=== PATIENT | female | born 1935 | race Caucasian/White ===

== ENCOUNTER → 2016-11-24 | Outpatient (CLI) | payer BC ==
[~2016-11-24] MED LIST: ADVIN25/60 INH; ALBU1AER9 INH; ALL300 PO; ASPI81TA57 PO; ATOR-22 PO; LEVO75TA5 PO; LSX20 PO; LUBI8CAP4 PO; MOME6000; MULT-513 PO; NRN100 PO; PANT40TA2 PO; RANI300T2 PO; SNG10 PO; TELM1TAB8 PO; TPRSR/50 PO; TRAM-10 PO
--- NOTE | 2016-11-24 15:08 | MAMMOGRAPHY REPORT ---
BILATERAL DIGITAL SCREENING MAMMOGRAM TOMOSYNTHESIS WITH CAD: 11/24/2016 CLINICAL HISTORY: Asymptomatic. Personal history of breast cancer. TECHNIQUE: Breast tomosynthesis in addition to standard 2D mammography was performed. Current study was also evaluated with a Computer Aided Detection (CAD) system. COMPARISON: Comparison is made to exams dated: 11/23/2015 mammogram, 11/19/2014 mammogram, 10/31/2013 ma mmogram, 10/29/2012 mammogram, 01/12/2011 mammogram, and 01/04/2010 mammogram - [facility] enter. BREAST COMPOSITION: There are scattered areas of fibroglandular density in both breasts. FINDINGS: No suspicious masses, calcifications, or areas of architectural distortion are noted in e ither breast. There has been no significant interval change compared to prior exams. Again noted ar e postsurgical changes in the right medial breast far posteriorly from prior lumpectomy, with densit y at the lumpectomy bed not significantly changed compared to the prior exam. Note that the lumpect yamil bed is only partially visualized due to the far posterior location. IMPRESSION: ACR BI-RADS CATEGORY 2: BENIGN There is no mammographic evidence of malignancy. A 1 year screening mammogram is recommended. The p atient will receive written notification of the results. Approximately 10% of breast cancers are not detected with mammography. A negative mammographic repor t should not delay biopsy if a clinically suggestive mass is present. Cayla Lima M.D. ah/:11/24/2016 13:40:22 Room Service Manager: Kesha DURANT([place])([place]), [facility] letter sent: Normal 1/2 BI-RADS Code: ACR BI-RADS Category 2: Benign
== END | disposition home or self-care (01) ==
LOC: C.MAMM 10:19
PROVIDERS: ATTEND Internal Medicine Hematology
DX: Z12.31 Encounter for screening mammogram for malignant neoplasm of breast (principal); Z85.3 Personal history of malignant neoplasm of breast; Z08 Encounter for follow-up examination after completed treatment for malignant neoplasm

== ENCOUNTER → 2017-11-22 | Outpatient (CLI) | payer BC ==
[~2017-11-22] MED LIST changes: +ADVIN50/60 INH; +ASPI-495 PO; +BENZ100C7 PO; +CETI-54 PO; +LEVO50TA6 PO; +LINA1CAP PO; +MCR40 PO; +METO-217 PO; +PROAIR 90 MCG INH; +RANI300T PO
[2017-11-22 12:53] LABS: BASO % 0.5 %; BASO ABS # 0.03 K/uL (0-0.2); EOS ABS # 0.17 K/uL (0-0.5); HEMATOCRIT 39.1 % (37-47); HEMOGLOBIN 13.2 g/dL (12.0-16.0); IG# 0.02 K/uL (0.00-0.02); LYMPH % 25.5 %; LYMPH ABS # 1.47 K/uL (1.2-3.4); MEAN CORPUSCULAR HEMOGLOBIN 31.7 pg (25-34); MEAN CORPUSCULAR HGB CONC 33.8 g/dl (32-36); MEAN PLATELET VOLUME 9.5 fL (7.4-10.4); MONO % 13.7 %; MONO ABS # 0.79 K/uL (0.11-0.59); NEUT ABS # 3.28 K/uL (1.4-6.5); PLATELET COUNT 267 K/uL (130-400); RED CELL DISTRIBUTION WIDTH SD 55.3 fL (36.4-46.3); WHITE BLOOD COUNT 5.76 K/uL (4.8-10.8)
[2017-11-22 13:11] LABS: BLOOD UREA NITROGEN 19 mg/dl (7-18); CREATININE 1.12 mg/dl (0.60-1.20)
== END | disposition home or self-care (01) ==
LOC: C.LABBFT 10:20
PROVIDERS: ATTEND Internal Medicine Pulmonary Disease
DX: J45.20 Mild intermittent asthma, uncomplicated (principal); J31.0 Chronic rhinitis

== ENCOUNTER 2017-11-27 15:49 | Inpatient (IN) | payer BC, OTHER ==
[~2017-11-27] VITALS: Ht 154.9 cm; Wt 80.6 kg
[~2017-11-27 15:49] MED LIST changes: -ADVIN50/60 INH; -ALL300 PO; -ASPI-495 PO; -ATOR-22 PO; -BENZ100C7 PO; -CETI-54 PO; -LEVO50TA6 PO; -LINA1CAP PO; -MCR40 PO; -METO-217 PO; -PANT40TA2 PO; -PROAIR 90 MCG INH; -RANI300T PO
[2017-11-27] MEDS ORDERED: SODIUM CHLORIDE 0.9% 1000ML 1,000 ML IV STA (18:51)
[2017-11-27] MEDS ORDERED: FENTANYL CITRATE INJ 50 MCG/1 ML 2 ML VIAL IV STA ×2 (18:51→20:47)
[2017-11-27] MEDS ORDERED: ONDANSETRON INJ 2 MG/ML 2 ML VIAL IV STA (18:51)
--- NOTE | 2017-11-27 18:56 | EMERGENCY ROOM VISIT NOTE ---
History Report prepared by Laura: Roberto Carlos Kumar Under the Supervision of: Dr. Mack Garcia M.D. First contact with patient: 18:45 Chief Complaint: ABDOMINAL PAIN Stated Complaint: URQ PAIN Nursing Triage Summary: Pt reports upper right sided abdominal pain this morning. Pt went to PCP and had blood work done and they wanted to do an Gallbladder US but were unable to get appointment so referred her here. Denies N/V. Reports diarrhea all morning. History of Present Illness The patient is an 82 year old female who presents to the Emergency Room with complaints of worsening right upper quadrant abdominal pain that began today rated as 8/10. Associated with nausea dn diarrhea. No vomiting, fevers, chills , syncope, cp, sob, nor other symptoms. No medications prior to arrival. Movement makes worse, staying still makes better. No history of abdominal surgeries. No treatments prior to arrival. Denies bloody stools but hasn't noticed stool color. Source of History: patient Onset: today Position: abdomen (RUQ) Symptom Intensity: 8/10 Timing: worsening Modifying Factors (Worsening): breathing Associated Symptoms: + nausea, + diarrhea, No chest pain, No vomiting, No urinary symptoms, No rash Review of Systems See HPI for pertinent positives & negatives. A total of 10 systems reviewed and were otherwise negative. Past Medical & Surgical Medical Problems: (1) Acute pancreatitis (2) Asthma (3) Cancer of central portion of right female breast (4) Coronary arteriosclerosis (5) Hyperlipidemia (6) Hypertension Nos (7) Hyponatremia (8) Hypothyroidism (9) Osteoporosis Nos Family History FH: cancer Heart disease Hypertension Social History Smoking Status: Never Smoker Alcohol Use: none Drug Use: none Marital Status: Housing Status: lives with significant other Occupation Status: retired Current/Historical Medications Scheduled Allopurinol (Allopurinol), 150 MG PO DAILY Aspirin (Aspirin Adult Low Strengt), 1 TAB PO DAILY Atorvastatin (Lipitor), 20 MG PO HS Cetirizine HCl (Ra Allergy Relief), 10 MG PO DAILY Fluticasone Prop/Salmeterol (Advair Diskus 500/50 60 Dose), 1 PUFF INH BID Furosemide (Furosemide), 20 MG PO WK Gabapentin (Gabapentin), 100 MG PO TID Levothyroxine Sodium (Levothyroxine Sodium), 50 MCG PO DAILY Linaclotide (Linzess), 145 MCG PO DAILY Metoprolol Succinate (Toprol Xl), 50 MG PO DAILY Montelukast Sod (Montelukast Sodium), 10 MG PO HS Multivitamins/Minerals (Mvi With Minerals), 1 TAB PO DAILY Pantoprazole (Pantoprazole Sodium), 40 MG PO DAILY Ranitidine Hcl (Zantac), 300 MG PO HS Telmisartan (Telmisartan), 40 MG PO DAILY Scheduled PRN Benzonatate (Benzonatate), 100 MG PO TID PRN for Cough Tramadol (Ultram), 1 TAB PO TID PRN for Pain [Proair Hfa 90 Mcg], 2 PUFF INH Q4 PRN for SOB/Wheezing Allergies Coded Allergies: Milk (Verified Allergy, Intermediate, UNKNOWN, 03/17/14) Sulfa Drugs (Verified Allergy, Intermediate, RASH FROM HEAD TO TOE, ) Latex (Verified Allergy, Mild, RASH, 03/17/14) Oxycodone (Verified Allergy, Mild, ITCHING, 03/17/14) Shellfish (Verified Allergy, Mild, `, 03/17/14) Soap (Verified Allergy, Mild, DETERGENTS-RASH, 03/17/14) Adhesives (Verified Allergy, Unknown, LOCAL SKIN IRRITATION, 03/17/14) CI Pigment Blue 63 (Verified Allergy, Unknown, RESTLESS LEGS, 03/17/14) Diphenhydramine (Verified Allergy, Unknown, _, 06/09/12) Hydrochlorothiazide (Verified Allergy, Unknown, RENAL COMPLICATIONS, HIVES ?, 03/17/14) Ibuprofen (Verified Allergy, Unknown, RESTLESS LEGS,RASH?, 03/17/14) Indigotindisulfonate (Verified Allergy, Unknown, RESTLESS LEGS,RASH, ) Ciprofloxacin (Verified Adverse Reaction, Intermediate, SEVERE NAUSEA AND VOMITING, 03/17/14) Nitrofurantoin (Verified Adverse Reaction, Intermediate, SEVERE NAUSEA AND VOMITING, 03/17/14) Lactose Intolerance (Verified Adverse Reaction, Unknown, GI SYMPTOMS, 03/17) Physical Exam Vital Signs Date Time Temp Pulse Resp B/P (MAP) Pulse Ox O2 Delivery O2 Flow Rate FiO2 11/27/17 21:40 80 18 175/86 96 Room Air 11/27/17 21:03 76 20 170/101 97 Room Air 11/27/17 20:10 78 20 171/93 98 Room Air 11/27/17 19:23 80 18 177/104 98 Room Air 11/27/17 15:53 36.5 85 18 157/88 95 Room Air Physical Exam GENERAL: Patient is uncomfortable appearing and in moderate discomfort. EYES: No scleral icterus, unremarkable pupils. ENT: Mucous membranes moist, no nasal congestion. NECK: No masses appreciated, no meningismus, trachea is midline. RESPIRATORY: No dyspnea. Clear to auscultation and equal bilaterally. No wheeze , no rhonchi. CARDIOVASCULAR: Regular rate and rhythm. No murmurs, rubs, gallops appreciated. GASTROINTESTINAL: RUQ tenderness to palpation. Abdomen soft, no peritonitis. Bowel sounds positive. No masses appreciated. BACK: No midline tenderness, no CVA tenderness EXTREMITIES: Normal motion all extremities, no cyanosis, no edema. NEUROLOGIC: Alert and oriented, no acute motor or sensory deficits, no focal weakness, cranial nerves grossly intact. SKIN: No rash, no jaundice, no diaphoresis. Medical Decision & Procedures ER Provider Diagnostic Interpretation: Radiology results and stated below per my review and radiologist interpretation: CT SCAN OF THE ABDOMEN AND PELVIS WITH IV CONTRAST CLINICAL HISTORY: Epigastric abdominal pain. COMPARISON STUDY: Abdominal CT dated 11/27/2017. TECHNIQUE: Following the IV administration of 115 cc of Optiray 320, CT scan of the abdomen and pelvis is performed from the lung bases to the proximal femora. Images are reviewed in the axial, sagittal, and coronal planes. IV contrast was administered without complication. A dose lowering technique was utilized adhering to the principles of ALARA. CT DOSE: 899.99 mGycm FINDINGS: Lung bases: The heart is enlarged and without pericardial effusion. There are coronary artery calcifications. A 3 mm nodule at the left lung base on image #13 is unchanged dating back to 2009 and of doubtful significance. There are scattered calcified granulomas. The lung bases are otherwise clear noting dependent atelectasis. There is a small hiatal hernia. Liver: The contrast-enhanced liver is normal in size, contour, and attenuation. There is mild intrahepatic biliary ductal dilatation. The hepatic veins and portal veins are patent. Gallbladder: There are small calcified gallstones identified. The gallbladder is distended. The gallbladder wall is thickened and hyperemic and there is pericholecystic inflammatory stranding and fluid. The appearance is consistent with acute cholecystitis. The common bile duct is dilated measuring up to 11 mm in diameter. Spleen: Normal in size and attenuation. Pancreas: Moderately atrophic and grossly unremarkable. Adrenal glands: Unremarkable. Kidneys: The contrast enhanced kidneys are atrophic and without hydronephrosis. The kidneys enhance symmetrically. 1.7 cm cyst is noted in the right lower pole. Abdominal vasculature: The abdominal aorta is normal in course and caliber noting moderate atherosclerotic calcification. Bowel: There is moderate sigmoid diverticulosis without CT evidence of acute diverticulitis. No bowel obstruction is seen. The appendix is well-visualized and normal. Peritoneum: There is no intraperitoneal free air or abdominal ascites. There is a small fat-containing umbilical hernia. Lymphadenopathy: None. Pelvic viscera: The bladder is decompressed but appears thick-walled and hyperemic. Mild pericystic inflammation is identified. The uterus and adnexa are normal as visualized. Skeletal structures: The skeletal structures are osteopenic. Lumbar sacral spondylosis is observed. There are postoperative changes from L4-L5 spinal fusion. No lytic or blastic lesions are seen. IMPRESSION: 1. Cholelithiasis with evidence of severe acute cholecystitis. Surgical consultation is advised. 2. There is mild intra and extrahepatic biliary ductal dilatation. 3. Although the bladder is decompressed, the wall is thickened and hyperemic. Pericystic inflammation is identified. Correlate clinically and with urinalysis for evidence of cystitis. 4. Moderate sigmoid diverticulosis without CT evidence of acute diverticulitis. 5. Cardiomegaly and small hiatal hernia. 6. Additional findings as above. Electronically signed by: Robert Griffith M.D. 11/27/2017 8:36 PM Dictated Date/Time: 11/27/2017 8:29 PM Laboratory Results 11/27/17 19:12 Red Blood Count 4.40, Mean Corpuscular Volume 93.9, Mean Corpuscular Hemoglobin 32.5, Mean Corpuscular Hemoglobin Concent 34.6, Mean Platelet Volume 10.0, Neutrophils (%) (Auto) 75.9, Lymphocytes (%) (Auto) 14.2, Monocytes (%) (Auto) 8.9, Eosinophils (%) (Auto) 0.2, Basophils (%) (Auto) 0.3, Neutrophils # (Auto) 11.92, Lymphocytes # (Auto) 2.22, Monocytes # (Auto) 1.39, Eosinophils # (Auto) 0.03, Basophils # (Auto) 0.04 11/27/17 19:12 Test 11/27/17 00:00 11/27/17 19:12 Urine Color DK YELLOW Urine Appearance CLEAR (CLEAR) Urine pH 5.0 (4.5-7.5) Urine Specific R[place]child 1.022 (1.000-1.030) Urine Protein NEG (NEG) Urine Glucose (UA) NEG (NEG) Urine Ketones NEG (NEG) Urine Occult Blood 1+ (NEG) Urine Nitrite POS (NEG) Urine Bilirubin NEG (NEG) Urine Urobilinogen NEG (NEG) Urine Leukocyte Esterase SMALL (NEG) Urine WBC (Auto) 10-30 /hpf (0-5) Urine RBC (Auto) 0-4 /hpf (0-4) Urine Hyaline Casts (Auto) 0 /lpf (0-5) Urine Epithelial Cells (Auto) 20-30 /lpf (0-5) Urine Bacteria (Auto) 4+ (NEG) Urine Crystals CALCIUM OXALATE (NONE White Blood Count 15.68 K/uL (4.8-10.8) Red Blood Count 4.40 M/uL (4.2-5.4) Hemoglobin 14.3 g/dL (12.0-16.0) Hematocrit 41.3 % (37-47) Mean Corpuscular Volume 93.9 fL (80-100) Mean Corpuscular Hemoglobin 32.5 pg (25-34) Mean Corpuscular Hemoglobin Concent 34.6 g/dl (32-36) Platelet Count 296 K/uL (130-400) Mean Platelet Volume 10.0 fL (7.4-10.4) Neutrophils (%) (Auto) 75.9 % Lymphocytes (%) (Auto) 14.2 % Monocytes (%) (Auto) 8.9 % Eosinophils (%) (Auto) 0.2 % Basophils (%) (Auto) 0.3 % Neutrophils # (Auto) 11.92 K/uL (1.4-6.5) Lymphocytes # (Auto) 2.22 K/uL (1.2-3.4) Monocytes # (Auto) 1.39 K/uL (0.11-0.59) Eosinophils # (Auto) 0.03 K/uL (0-0.5) Basophils # (Auto) 0.04 K/uL (0-0.2) RDW Standard Deviation 54.7 fL (36.4-46.3) RDW Coefficient of Variation 15.9 % (11.5-14.5) Immature Granulocyte % (Auto) 0.5 % Immature Granulocyte # (Auto) 0.08 K/uL (0.00-0.02) Prothrombin Time 10.2 SECONDS (9.0-12.0) Prothromb Time International Ratio 1.0 (0.9-1.1) Anion Gap 8.0 mmol/L (3-11) Est Creatinine Clear Calc Drug Dose 39.6 ml/min Estimated GFR () 59.3 Estimated GFR (Non- 51.2 BUN/Creatinine Ratio 15.4 (10-20) Calcium Level 9.1 mg/dl (8.5-10.1) Total Bilirubin 0.9 mg/dl (0.2-1) Direct Bilirubin 0.4 mg/dl (0-0.2) Aspartate Amino Transf (AST/SGOT) 178 U/L (15-37) Alanine Aminotransferase (ALT/SGPT) 108 U/L (12-78) Alkaline Phosphatase 142 U/L (45-117) Total Protein 7.7 gm/dl (6.4-8.2) Albumin 3.7 gm/dl (3.4-5.0) Lipase 85859 U/L (73-393) Laboratory results as reviewed by me. Medications Administered Medications (Trade) Dose Ordered Sig/Yessica Route Start Time Stop Time Status Last Admin Dose Admin Ondansetron HCl (Zofran Inj) 4 mg NOW STAT IV 11/27/17 18:51 11/27/17 18:53 DC 11/27/17 19:19 4 MG Fentanyl Citrate (Fentanyl Inj) 25 mcg NOW STAT IV 11/27/17 18:51 11/27/17 18:53 DC 11/27/17 19:19 25 MCG Sodium Chloride 1,000 ml @ 999 mls/hr Q1H1M STAT IV 11/27/17 18:51 11/27/17 19:51 DC 11/27/17 19:18 999 MLS/HR Cefoxitin Sodium (Mefoxin 2000mg/ 60 ml D5W) 2,000 mg NOW STAT IV 11/27/17 20:42 11/27/17 20:43 DC 11/27/17 21:03 2,000 MG Fentanyl Citrate (Fentanyl Inj) 25 mcg NOW STAT IV 11/27/17 20:47 11/27/17 20:48 DC 11/27/17 20:56 25 MCG ED Course 1844: The patient was evaluated in room C5. A complete history and physical exam was performed. 1899: I checked on the patient. We discussed doing a CT scan rather than an US and she is agreeable. At [facility], she had a creatinine of 1.0 and a white count of 12.4 as an outpatient. 2044: I checked on the patient and she is agreeable to admission. She is requesting more pain medication. I discussed with surgery earlier, who requested hospitalist admission. 2049: Discussed the patient's case with Dr. Arango. The patient will be evaluated for further treatment and disposition. 2099: Upon reevaluation, the patient is resting. Discussed results and treatment plan with the patient. She verbalized understanding and agreement with the treatment plan. The patient will be evaluated for further management. Medical Decision Differential: Cholecystitis, Gallbladder disfunction, Hepatic Disfunction, Gastritis/PUD, Renal Colic, Pancreatitis, ACS, Aortic Pathology, amongst other pathologies entertained. 82 yr old female arrives for evaluation of RUQ abdominal pain radiating to her back and epigastrium. No fevers though this is rapid onset. TTP over RUQ but with complaints and elevated lipase felt that CT indicated above US. CT reveals acute Cholecystitis. Increased LFTs and WBC consistent with infection. Lipase elevated thus would suspect gallstone pancreatitis. With this I initiated IV abx, reviewed with Gen Surg who advised Med admit and discussed with Dr Arango. Patient without septic shock. She is kept comfortable with small amounts fentanyl periodically. She was stable throughout ED stay. Medication Reconcilliation Current Medication List: was personally reviewed by me Blood Pressure Screening Patient's blood pressure: Elevated blood pressure Blood pressure disposition: Elevated BP felt to be situational Consults Time Called: 2044 Consulting Physician: Dr. Aranog Returned Call: 2049 Discussed the patient's case. The patient will be evaluated for further treatment and disposition. Impression Primary Impression: Acute cholecystitis Additional Impression: Gallstone pancreatitis Scribe Attestation The scribe's documentation has been prepared under my direction and personally reviewed by me in its entirety. I confirm that the note above accurately reflects all work, treatment, procedures, and medical decision making performed by me. Departure Information Dispostion Being Evaluated By Hospitalist Referrals No Doctor, Assigned (PCP) Patient Instructions My [facility] Problem Qualifiers
[2017-11-27] MEDS ORDERED: OPTIRAY 320 IV PRN (19:00)
[2017-11-27] MEDS ORDERED: PROAIR 90 MCG INH (19:32)
[2017-11-27] MEDS ORDERED: MCR40 PO (19:32)
[2017-11-27] MEDS ORDERED: LINA1CAP PO (19:32)
[2017-11-27] MEDS ORDERED: METO-217 PO (19:32)
[2017-11-27] MEDS ORDERED: LEVO50TA6 PO (19:32)
[2017-11-27] MEDS ORDERED: CETI-54 PO (19:32)
[2017-11-27] MEDS ORDERED: RANI300T PO (19:32)
[2017-11-27] MEDS ORDERED: BENZ100C7 PO (19:32)
[2017-11-27] MEDS ORDERED: ADVIN50/60 INH (19:32)
[2017-11-27] MEDS ORDERED: LSX20 PO (19:56)
[2017-11-27] MEDS ORDERED: ASPI-495 PO (19:56)
[2017-11-27 20:09] LABS: BASO % 0.3 %; BASO ABS # 0.04 K/uL (0-0.2); EOS % 0.2 %; EOS ABS # 0.03 K/uL (0-0.5); HEMATOCRIT 41.3 % (37-47); HEMOGLOBIN 14.3 g/dL (12.0-16.0); IG# 0.08 K/uL (0.00-0.02); LYMPH % 14.2 %; LYMPH ABS # 2.22 K/uL (1.2-3.4); MEAN CELL VOLUME 93.9 fL (80-100); MEAN CORPUSCULAR HEMOGLOBIN 32.5 pg (25-34); MEAN CORPUSCULAR HGB CONC 34.6 g/dl (32-36); MONO % 8.9 %; MONO ABS # 1.39 K/uL (0.11-0.59); NEUT % 75.9 %; NEUT ABS # 11.92 K/uL (1.4-6.5); PLATELET COUNT 296 K/uL (130-400); RED CELL DISTRIBUTION WIDTH CV 15.9 % (11.5-14.5); RED CELL DISTRIBUTION WIDTH SD 54.7 fL (36.4-46.3); WHITE BLOOD COUNT 15.68 K/uL (4.8-10.8)
[2017-11-27 20:30] LABS: ALBUMIN 3.7 gm/dl (3.4-5.0); CALCIUM 9.1 mg/dl (8.5-10.1); CREATININE 1.02 mg/dl (0.60-1.20); POTASSIUM 3.8 mmol/L (3.5-5.1)
[2017-11-27] MEDS ORDERED: ATOR-22 PO (20:32)
[2017-11-27] MEDS ORDERED: ALL300 PO (20:32)
[2017-11-27] MEDS ORDERED: PANT40TA2 PO (20:32)
[2017-11-27 20:33] LABS: TOTAL PROTEIN 7.7 gm/dl (6.4-8.2)
--- NOTE | 2017-11-27 20:37 | DIAGNOSTIC IMAGING REPORT ---
CT SCAN OF THE ABDOMEN AND PELVIS WITH IV CONTRAST CLINICAL HISTORY: Epigastric abdominal pain. COMPARISON STUDY: Abdominal CT dated 11/27/2017. TECHNIQUE: Following the IV administration of 115 cc of Optiray 320, CT scan of the abdomen and pelvis is performed from the lung bases to the proximal femora. Images are reviewed in the axial, sagittal, and coronal planes. IV contrast was administered without complication. A dose lowering technique was utilized adhering to the principles of ALARA. CT DOSE: 899.99 mGycm FINDINGS: Lung bases: The heart is enlarged and without pericardial effusion. There are coronary artery calcifications. A 3 mm nodule at the left lung base on image #13 is unchanged dating back to 2009 and of doubtful significance. There are scattered calcified granulomas. The lung bases are otherwise clear noting dependent atelectasis. There is a small hiatal hernia. Liver: The contrast-enhanced liver is normal in size, contour, and attenuation. There is mild intrahepatic biliary ductal dilatation. The hepatic veins and portal veins are patent. Gallbladder: There are small calcified gallstones identified. The gallbladder is distended. The gallbladder wall is thickened and hyperemic and there is pericholecystic inflammatory stranding and fluid. The appearance is consistent with acute cholecystitis. The common bile duct is dilated measuring up to 11 mm in diameter. Spleen: Normal in size and attenuation. Pancreas: Moderately atrophic and grossly unremarkable. Adrenal glands: Unremarkable. Kidneys: The contrast enhanced kidneys are atrophic and without hydronephrosis. The kidneys enhance symmetrically. 1.7 cm cyst is noted in the right lower pole. Abdominal vasculature: The abdominal aorta is normal in course and caliber noting moderate atherosclerotic calcification. Bowel: There is moderate sigmoid diverticulosis without CT evidence of acute diverticulitis. No bowel obstruction is seen. The appendix is well-visualized and normal. Peritoneum: There is no intraperitoneal free air or abdominal ascites. There is a small fat-containing umbilical hernia. Lymphadenopathy: None. Pelvic viscera: The bladder is decompressed but appears thick-walled and hyperemic. Mild pericystic inflammation is identified. The uterus and adnexa are normal as visualized. Skeletal structures: The skeletal structures are osteopenic. Lumbar sacral spondylosis is observed. There are postoperative changes from L4-L5 spinal fusion. No lytic or blastic lesions are seen. IMPRESSION: 1. Cholelithiasis with evidence of severe acute cholecystitis. Surgical consultation is advised. 2. There is mild intra and extrahepatic biliary ductal dilatation. 3. Although the bladder is decompressed, the wall is thickened and hyperemic. Pericystic inflammation is identified. Correlate clinically and with urinalysis for evidence of cystitis. 4. Moderate sigmoid diverticulosis without CT evidence of acute diverticulitis. 5. Cardiomegaly and small hiatal hernia. 6. Additional findings as above. Electronically signed by: Robert Griffith M.D. 11/27/2017 8:36 PM Dictated Date/Time: 11/27/2017 8:29 PM
[2017-11-27] MEDS ORDERED: CEFOXITIN 2000MG/60 ML D5W IV STA (20:42)
--- NOTE | 2017-11-27 21:36 | DIAGNOSTIC IMAGING REPORT ---
SINGLE VIEW CHEST CLINICAL HISTORY: Dyspnea. FINDINGS: An AP, portable, upright chest radiograph is compared to study dated 03/11/2016 and correlated with chest CT dated 05/18/2009. The examination is degraded by portable technique and patient rotation. The heart is enlarged and there is atherosclerotic calcification of the thoracic aorta. The pulmonary vasculature is noncongested. There is chronic interstitial thickening and elevation of the right hemidiaphragm. Bibasilar airspace opacities are noted. No large pleural effusion or pneumothorax is seen. The skeletal structures are osteopenic. The bony thorax is grossly intact. IMPRESSION: 1. Cardiomegaly without radiographic evidence of congestive failure. 2. Bibasilar airspace opacities likely represent atelectasis. Correlate clinically for evidence of superimposed pneumonia. Electronically signed by: Robert Griffith M.D. 11/27/2017 9:35 PM Dictated Date/Time: 11/27/2017 9:32 PM
[2017-11-27 22:33] VITALS: BP 176/82; PULSE 65; TEMP 36.9; O2SAT 96; Ht 154.9 cm; Wt 80.6 kg
--- NOTE | 2017-11-27 22:35 | HISTORY & PHYSICAL EXAMINATION ---
DATE OF ADMISSION: 11/27/2017 PRIMARY CARE PHYSICIAN: Dr. Brown. CHIEF COMPLAINT: Abdominal pain, diarrhea since last night. HISTORY OF PRESENT COMPLAINT: She is an 82-year-old female with significant past medical history including CAD, diastolic heart failure, chronic kidney disease stage III, history of essential tremor, osteoporosis, chronic left bundle branch block, hypothyroidism, and hyperlipidemia, apparently has been complaining of abdominal pain mostly in the upper abdomen and more in the right upper quadrant since last evening. She has had some abdominal discomfort for more than a week. She complained to have sweating last night, but no fever documented. She feels nauseous, but no vomiting. She has had diarrhea about 12 times today. With these symptoms, she was brought into the Emergency Room and she was noted to have CT findings of acute cholecystitis with increased white count and increased LFTs and also her lipase is elevated with dilatation of the bile duct. From that point, surgery was consulted and they requested medicine service to take the admission. She denies to have any chest pain, any palpitation on usual activities. 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 PAST MEDICAL HISTORY: Significant for senile osteoporosis, chronic left bundle branch block, hypothyroidism, osteoarthritis, hyperlipidemia, ARPIT, essential tremor, hypertension, diastolic heart failure, chronic kidney disease stage III. She has asthma as well. PAST SURGICAL HISTORY: Significant for lumbar disc displacement surgery; cardiac catheterization in 2010, 70% LAD and circumflex, medical therapy continued; mastectomy for a benign lesion; and tonsillectomy and adenoid surgery as a child. FAMILY HISTORY: Mother did have Parkinson disease. Father had asthma. SOCIAL HISTORY: She is . She lives with her . She has 4 children. She does not smoke and does not drink. ALLERGIES: SHE IS ALLERGIC TO MILK, SULFA, LATEX, OXYCODONE, SHELLFISH, SOAP, ADHESIVE, DIPHENHYDRAMINE, HYDROCHLOROTHIAZIDE, IBUPROFEN, INDIGOTINDISULFONATE, CIPROFLOXACIN, NITROFURANTOIN, AND LACTOSE INTOLERANCE. MEDICATIONS: As an outpatient, she has been taking allopurinol 150 mg daily, aspirin 81 mg daily, atorvastatin 20 mg daily, benzoate 100 mg daily, cetirizine 10 mg daily, Advair Diskus 1 puff twice daily, furosemide 20 mg as directed, gabapentin 100 mg daily, levothyroxine 50 mcg daily, Toprol-XL 50 mg daily, montelukast 10 mg daily, multivitamin 1 tablet daily, Protonix 40 mg daily, telmisartan 40 mg daily, tramadol 50 mg daily, Linzess 145 mcg daily, Zantac 300 mg daily, and ProAir 2 puffs q. 4 hourly p.r.n. REVIEW OF SYSTEMS: CENTRAL NERVOUS SYSTEM: No headache, no blurred vision, no numbness or tingling in the extremities. RESPIRATORY: No cough, shortness of breath but did have some sweating last night, but no fever. CARDIOVASCULAR: No chest pain, palpitation, no shortness of breath, no leg swelling. GASTROINTESTINAL: Did have abdominal pain, generalized, but mostly right upper quadrant goes to back associated with nausea. GENITOURINARY: Did have diarrhea this morning, but no problem with urine. MUSCULOSKELETAL: No acute arthritis in any joints. CONSTITUTIONAL: She is generally weak and lethargic. PHYSICAL EXAMINATION: GENERAL: On examination in the Emergency Room, she was not having any acute distress. VITAL SIGNS: Temperature 36.5, pulse is 85, blood pressure 170/101, saturation 97% on room air. HEENT: Unremarkable. NECK: Supple, no JVD, no bruit. CHEST: Clear to auscultate bilaterally. HEART: S1, S2 regular. ABDOMEN: Mildly distended, soft, tender in the right upper quadrant with guarding and rigidity. Alcantara sign positive. Bowel sounds present. EXTREMITIES: Negative for any edema. MUSCULOSKELETAL SYSTEM: Did not show any acute arthritis. CENTRAL NERVOUS SYSTEM: She was alert, awake, oriented x3. LABORATORY DATA: Noted today white count was 15.68, H and H 14.3/41.3, platelet 296, polys of 11.92. Sodium 137, potassium 3.8, chloride 104, carbon dioxide 25, BUN 16, creatinine 1.02. Random glucose 107, total bilirubin 0.9, direct 0.4, AST 178, ALT 108, alkaline phosphatase 142, lipase was 51,602. PT/INR pending. UA examination did show urine crystals of calcium oxalate, urine bacteria 4+, epithelial cells 20-30, white cells 10-30, leukocyte esterase small. CT of the abdomen and pelvis reported as cholelithiasis with evidence of severe acute cholecystitis. Surgical consent was advised. There is mild intra and extrahepatic biliary duct dilatation, although the bladder is compressed, the wall is thickened and hyperemic, pericystic inflammation is identified. Correlate clinically with urinalysis, there was evidence of cystitis, moderate sigmoid diverticulosis without colitis, cardiomegaly and a small hiatal hernia. Gallbladder also noted to have small calcified gallstones and bile duct was dilated. Chest x-ray; cardiomegaly, right hilar prominence, but no infiltration and/or CHF. EKG not yet done. A stress echo that was done in June 2017, negative for any ischemia. IMPRESSION AND PLAN: 1. Acute cholecystitis with gallstones. The patient will be admitted to telemetry unit. She will be n.p.o., adequate IV fluid, pain medications. Surgery consultation. Probable surgery tomorrow morning or even tonight. 2. Acute pancreatitis with highly elevated lipase, likely secondary to gallstone pancreatitis. She may need an ERCP during the procedure of cholecystectomy. GI consultation will be asked for and she will be given pain medications and kept n.p.o. and IV fluid as needed. 3. Mild asthma, seems to be controlled at this time. We will continue her usual medications for asthma. 4. Hypertension. Blood pressure seems to be elevated. We will hold off her oral medications and give her IV beta-mohinder to control the blood pressure. May need hydralazine as well. 5. Hypothyroidism. We will give half the dose of Synthroid IV. 6. Hyperlipidemia. Hold statin right now. 7. Hiatal hernia with esophageal reflux. We will give Protonix IV. 8. History of heart failure due to hypertension, no evidence of heart failure at this time. We will watch while in telemetry unit. 9. Deep venous thrombosis prophylaxis with subcutaneous heparin. 10. Code status, will be full code. In my clinical assessment, the beneficiary meets criteria as per CMS for 2 midnight stay in this hospital. MTDD
[2017-11-27] MEDS: NSS + 20MEQ KCL 1000ML 1,000 ML IV SCH (22:52)
[2017-11-27] MEDS: HYDROmorphone INJ 2 MG/ML SYR/VIAL IV PRN (22:53)
[2017-11-27 22:55] VITALS: BP 174/80; PULSE 65; TEMP 36.7; O2SAT 95
[2017-11-28] VITALS (7 sets, daily range): BP systolic 129–156; BP diastolic 70–83; PULSE 67–96; TEMP 36.6–36.8; O2SAT 91–95
[2017-11-28] MEDS: METOPROLOL TARTRATE 1 MG/ML VIAL IV. SCH ×5 (00:03→23:34)
[2017-11-28] MEDS: CEFOXITIN IV 1,000 MG in DEXTROSE 5% 50ML 50 ML IV SCH ×4 (01:39→20:12)
[2017-11-28] MEDS: HEPARIN SOD 5000 UNIT/0.5 ML CARP SQ SCH ×3 (06:04→21:59)
[2017-11-28 07:01] LABS: HEMATOCRIT 37.3 % (37-47); HEMOGLOBIN 12.6 g/dL (12.0-16.0); MEAN CORPUSCULAR HEMOGLOBIN 31.7 pg (25-34); MEAN CORPUSCULAR HGB CONC 33.8 g/dl (32-36); MEAN PLATELET VOLUME 9.9 fL (7.4-10.4); PLATELET COUNT 224 K/uL (130-400); RED CELL DISTRIBUTION WIDTH CV 16.1 % (11.5-14.5); RED CELL DISTRIBUTION WIDTH SD 55.7 fL (36.4-46.3); WHITE BLOOD COUNT 8.67 K/uL (4.8-10.8)
[2017-11-28 07:37] LABS: ALBUMIN 2.7 gm/dl (3.4-5.0); CREATININE 0.86 mg/dl (0.60-1.20); POTASSIUM 3.9 mmol/L (3.5-5.1)
[2017-11-28 07:44] LABS: PHOSPHORUS 3.2 mg/dl (2.5-4.9)
[2017-11-28] MEDS: FLUTICASONE/SALMETEROL (ADVAIR) 500/50 INH 14 PUFF INH SCH ×2 (07:52→20:12)
[2017-11-28] MEDS: NSS + 20MEQ KCL 1000ML 1,000 ML IV SCH (07:52)
[2017-11-28] MEDS: LEVOTHYROXINE SODIUM INJ 25 MCG in SYRINGE 0 ML IV SCH (08:41)
--- NOTE | 2017-11-28 09:33 | Gastrointestinal Consultation ---
Gastrointestinal Consultation Date of Consultation: Nov 28, 2017 Attending Physician: Conchita Consulting Physician: Jhon Reason for Consultation: gallstone panc History of Present Illness Patient is a 82 year old female w/ history of CAD, CHF, CKD and others listed below who presented to [facility] for abdominal pain. Pt was seen and evaluated, chart reviewed. Pt notes for the past few months she has been having mild intermittent right upper quadrant pain. This pain was a fullness and pressure. She is not sure if it was associated with eating or BMs, thinks it occurred at random. Did have some mild nausea and baseline, no vomiting. 24 hours ago, woke up with a more severe form of this pain. Located in RUQ and epigastric region. Has never had a pain like this before. Pain is constant, sharp associated with nausea, no vomiting. Also notes chills. Notes this AM her symptoms are mildly improved, but still present in the background. Denies fever, chills, CP, SOB. VSS, afebrile w/ improvement of leukocytosis that was present on admission. BUN 11, CABIN CLEANER 0.8. Lipase 51,602 --> 7064 TB 0.9 --> 0.5 AST 179 --> 112 ALT 108 --> 103 ALKP 142 --> 115 CT ABD/Pelvis 11/27/17: Cholelithiasis with evidence of severe acute cholecystitis. Surgical consultation is advised. There is mild intra and extrahepatic biliary ductal dilatation. CBD 11 Past Medical/Surgical History Medical Problems: (1) Acute cholecystitis Status: Acute (2) Gallstone pancreatitis Status: Acute Past Medical History: left BBB, osteoporosis, dyslipidemia, hypothyroidism, asthma, functional abd pain, osteoarthritis, HTN, CHF, CKD-3 Past Surgical History: cardiac cath, lumbar spine surgery, tonsillectomy Family History FH: cancer Heart disease Hypertension Social History Smoking Status: Never Smoker Alcohol Use: none Drug Use: none Marital Status: Housing Status: lives with significant other Occupation Status: retired Allergies Coded Allergies: Milk (Verified Allergy, Intermediate, UNKNOWN, 03/17/14) Sulfa Drugs (Verified Allergy, Intermediate, RASH FROM HEAD TO TOE, ) Latex (Verified Allergy, Mild, RASH, 03/17/14) Oxycodone (Verified Allergy, Mild, ITCHING, 03/17/14) Shellfish (Verified Allergy, Mild, `, 03/17/14) Soap (Verified Allergy, Mild, DETERGENTS-RASH, 03/17/14) Adhesives (Verified Allergy, Unknown, LOCAL SKIN IRRITATION, 03/17/14) CI Pigment Blue 63 (Verified Allergy, Unknown, RESTLESS LEGS, 03/17/14) Diphenhydramine (Verified Allergy, Unknown, _, 06/09/12) Hydrochlorothiazide (Verified Allergy, Unknown, RENAL COMPLICATIONS, HIVES ?, 03/17/14) Ibuprofen (Verified Allergy, Unknown, RESTLESS LEGS,RASH?, 03/17/14) Indigotindisulfonate (Verified Allergy, Unknown, RESTLESS LEGS,RASH, ) Ciprofloxacin (Verified Adverse Reaction, Intermediate, SEVERE NAUSEA AND VOMITING, 03/17/14) Nitrofurantoin (Verified Adverse Reaction, Intermediate, SEVERE NAUSEA AND VOMITING, 03/17/14) Lactose Intolerance (Verified Adverse Reaction, Unknown, GI SYMPTOMS, 03/17) Current Medications Home Meds and Scripts Medications Dose Route/Sig Max Daily Dose Days Date Category Dose Instructions Furosemide 20 Mg Tab 20 Mg PO WK 11/27/17 Reported Aspirin Adult Low Strengt (Aspirin) 81 Mg Tab 1 Tab PO DAILY 11/27/17 Reported [Proair Hfa 90 Mcg] 2 Puff INH Q4 PRN 11/27/17 Reported Telmisartan 40 Mg Tab 40 Mg PO DAILY 11/27/17 Reported Linzess (Linaclotide) 145 Mcg Cap 145 Mcg PO DAILY 11/27/17 Reported Toprol Xl (Metoprolol Succinate) 50 Mg Tabcr 50 Mg PO DAILY 11/27/17 Reported Levothyroxine Sodium 50 Mcg Tab 50 Mcg PO DAILY 11/27/17 Reported Ra Allergy Relief (Cetirizine HCl) 10 Mg Tab 10 Mg PO DAILY 11/27/17 Reported Advair Diskus 500/50 60 Dose (Fluticasone Prop/Salmeterol) 1 Ea Aerp 1 Puff INH BID 11/27/17 Reported Benzonatate 100 Mg Cap 100 Mg PO TID PRN 11/27/17 Reported Zantac (Ranitidine Hcl) 300 Mg Tab 300 Mg PO HS 11/27/17 Reported Ultram (Tramadol HCl) 50 Mg Tab 1 Tab PO TID PRN 30 08/04/16 Reported Gabapentin 100 Mg Cap 100 Mg PO TID 03/11/16 Reported Allopurinol 300 Mg Tab 150 Mg PO DAILY 03/11/16 Reported Pt states drMadiha changed to 150 mg daily Pantoprazole Sodium (Pantoprazole) 40 Mg Tab 40 Mg PO DAILY 03/11/16 Reported Montelukast Sodium (Montelukast Sod) 10 Mg Tab 10 Mg PO HS 03/11/16 Reported Lipitor (Atorvastatin Calcium) 20 Mg Tab 20 Mg PO HS 03/11/16 Reported Mvi With Minerals (Multivitamins/Minerals) Tab 1 Tab PO DAILY 06/29/09 Reported Review of Systems Constitutional: No fever, No chills, No weight loss, No weakness Respiratory: No cough, No shortness of breath Cardiac: No chest pain, No edema Abdomen: + pain, + nausea, No vomiting, No diarrhea, No constipation, No GI bleeding Physical Exam Date Time Temp Pulse Resp B/P (MAP) Pulse Ox O2 Delivery O2 Flow Rate FiO2 11/28/17 07:16 36.7 80 18 129/70 (89) 94 Room Air 11/28/17 06:04 78 133/79 11/28/17 06:03 78 133/79 (97) 11/28/17 04:00 Room Air 11/28/17 03:24 36.6 71 17 135/83 (100) 93 Room Air 11/28/17 00:03 79 174/80 11/28/17 00:00 Room Air 11/27/17 22:55 36.7 65 18 174/80 (111) 95 Room Air 11/27/17 22:33 36.9 65 18 176/82 96 Room Air 11/27/17 21:40 80 18 175/86 96 Room Air 11/27/17 21:03 76 20 170/101 97 Room Air 11/27/17 20:10 78 20 171/93 98 Room Air 11/27/17 19:23 80 18 177/104 98 Room Air 11/27/17 15:53 36.5 85 18 157/88 95 Room Air General Appearance: no apparent distress Eyes: PERRL ENT: hearing grossly normal Neck: supple, trachea midline Respiratory/Chest: lungs clear, normal breath sounds, no respiratory distress, no accessory muscle use Cardiovascular: regular rate, rhythm, no gallop, no JVD Abdomen: normal bowel sounds, soft, no organomegaly, no pulsatile mass, + tenderness Neurologic/Psych: alert, normal mood/affect, oriented x 3 Skin: normal color, no jaundice, warm/dry, no rash Laboratory Results Last 24 Hours Test 11/27/17 19:12 11/28/17 05:57 White Blood Count 15.68 K/uL 8.67 K/uL Red Blood Count 4.40 M/uL 3.97 M/uL Hemoglobin 14.3 g/dL 12.6 g/dL Hematocrit 41.3 % 37.3 % Mean Corpuscular Volume 93.9 fL 94.0 fL Mean Corpuscular Hemoglobin 32.5 pg 31.7 pg Mean Corpuscular Hemoglobin Concent 34.6 g/dl 33.8 g/dl Platelet Count 296 K/uL 224 K/uL Mean Platelet Volume 10.0 fL 9.9 fL Neutrophils (%) (Auto) 75.9 % Lymphocytes (%) (Auto) 14.2 % Monocytes (%) (Auto) 8.9 % Eosinophils (%) (Auto) 0.2 % Basophils (%) (Auto) 0.3 % Neutrophils # (Auto) 11.92 K/uL Lymphocytes # (Auto) 2.22 K/uL Monocytes # (Auto) 1.39 K/uL Eosinophils # (Auto) 0.03 K/uL Basophils # (Auto) 0.04 K/uL RDW Standard Deviation 54.7 fL 55.7 fL RDW Coefficient of Variation 15.9 % 16.1 % Immature Granulocyte % (Auto) 0.5 % Immature Granulocyte # (Auto) 0.08 K/uL Prothrombin Time 10.2 SECONDS Prothromb Time International Ratio 1.0 Sodium Level 137 mmol/L 141 mmol/L Potassium Level 3.8 mmol/L 3.9 mmol/L Chloride Level 104 mmol/L 111 mmol/L Carbon Dioxide Level 25 mmol/L 21 mmol/L Anion Gap 8.0 mmol/L 9.0 mmol/L Blood Urea Nitrogen 16 mg/dl 11 mg/dl Creatinine 1.02 mg/dl 0.86 mg/dl Est Creatinine Clear Calc Drug Dose 39.6 ml/min 47.0 ml/min Estimated GFR () 59.3 72.9 Estimated GFR (Non- 51.2 62.9 BUN/Creatinine Ratio 15.4 12.8 Random Glucose 107 mg/dl 82 mg/dl Calcium Level 9.1 mg/dl 8.0 mg/dl Total Bilirubin 0.9 mg/dl 0.5 mg/dl Direct Bilirubin 0.4 mg/dl Aspartate Amino Transf (AST/SGOT) 178 U/L 112 U/L Alanine Aminotransferase (ALT/SGPT) 108 U/L 103 U/L Alkaline Phosphatase 142 U/L 115 U/L Total Protein 7.7 gm/dl 6.0 gm/dl Albumin 3.7 gm/dl 2.7 gm/dl Lipase 64346 U/L 7064 U/L Phosphorus Level 3.2 mg/dl Magnesium Level 2.1 mg/dl Globulin 3.3 gm/dl Albumin/Globulin Ratio 0.8 Impression Patient is a 82 year old female with acute onset epigastric RUQ pain following a month of intermittent RUQ pain, imaging concerning for acute cholecystitis, gallstone pancreatitis. She has some elevation of her transaminases w/ normal TB and ALKP, CBD 11mm. Concern for CBD stone. Plan - Biliary dilation - MRCP today - Daily LFTs - GI will discuss ERCP if needed pending results and clinical course - Treat the pancreatitis - NPO for bowel rest - LR 200 ml/hr if tolerated given hx HF - analgesia prn - antiemetics prn - Cholecystitis - cholecystectomy per general surgery - Please call with any questions, concerns or acute changes. I performed a history and physical examination of the patient. I have discussed the patient's case, impression and plan with SNEHA Schaefer. Her note reflects my findings and plan. Agree with MRCP if no CBD stones, I do not recommend a pre op ERCP. Jefferson Ferreira MD
[2017-11-28] MEDS: HYDROmorphone INJ 2 MG/ML SYR/VIAL IV PRN ×2 (11:24→16:20)
[2017-11-28] MEDS: PANTOprazole INJ 40 MG in SYRINGE 0 ML IV SCH (11:26)
--- NOTE | 2017-11-28 11:50 | DIAGNOSTIC IMAGING REPORT ---
MRCP HISTORY: Right upper quadrant abdominal pain. Nausea. gallstone high-grade tight is, biliary dilation, elevated LFTs, assess CBD stone. TECHNIQUE: MRCP the abdomen was performed without contrast according to standard departmental protocol. COMPARISON STUDY: Abdomen and pelvis CT 12/07/2017. FINDINGS: Trace right pleural effusion. Mild intrahepatic bile duct dilatation. The gallbladder is mildly distended. There is a punctate stone within the gallbladder fundus. There is trace pericholecystic fluid. Trace fluid surrounding the pancreas suggestive of acute pancreatitis. There is also trace perinephric fluid. The main pancreatic duct is normal in course and caliber. The common bile duct is mildly distended for age measuring up to 1 cm. There are no filling defects within the common bile duct to suggest a stone. Posterior fusion hardware within the lower lumbar spine. A 1.2 cm cyst within the lower pole of the right kidney. The spleen and adrenal glands are unremarkable. IMPRESSION: 1. Mildly distended gallbladder with a small amount of pericholecystic fluid and a small gallstone. This is concerning for acute cholecystitis. Clinical correlation recommended. 2. Mild intra and extra hepatic bile duct dilatation. No evidence for a common bile duct stone. 3. The main pancreatic duct is normal in course and caliber. 4. Mild peripancreatic edema suggestive of acute pancreatitis. Electronically signed by: Bola Henry M.D. 11/28/2017 11:48 AM Dictated Date/Time: 11/28/2017 11:42 AM
--- NOTE | 2017-11-28 12:02 | DIAGNOSTIC IMAGING REPORT ---
ABDOMEN LIMITED (US) CLINICAL HISTORY: 82 years-old Female presenting with acute cholecystitis, further evaluate GB extent of stones. TECHNIQUE: Real-time grayscale and limited color Doppler ultrasound imaging of the abdomen limited to the right upper quadrant was performed. COMPARISON: MRCP performed earlier the same day as well as CT of abdomen pelvis from 11/27/2017. FINDINGS: Pancreas: Largely obscured due to overlying bowel gas. Liver: Mildly hyperechogenic parenchyma, although the right hemidiaphragm remains visible, likely indicating mild steatosis. The liver measures 13.0 cm in maximal sagittal dimension. No sonographic evidence of hepatic mass. Main portal vein patent with normal directional flow. Biliary: No intrahepatic biliary ductal dilatation. Common bile duct measures up to 10 mm in diameter. Gallbladder: Gallstones and gallbladder sludge evident with borderline gallbladder wall thickening. No significant pericholecystic fluid. No mucosal irregularity. Right kidney: Normal in appearance. No hydronephrosis. Ascites: None. Other: None. IMPRESSION: 1. Gallstones and gallbladder sludge. In light of the recent CT and MRI, ultrasound findings are equivocal for cholecystitis. Further evaluation with nuclear medicine HIDA scan recommended given the high clinical concern on recent imaging for acute cholecystitis. 2. Hepatic steatosis. Electronically signed by: Boston Gonzales M.D. 11/28/2017 12:01 PM Dictated Date/Time: 11/28/2017 11:58 AM
--- NOTE | 2017-11-28 12:12 | Surgery Consultation ---
Consultation Date of Consultation: Nov 28, 2017. Attending Physician: Shine Orosco MD Reason for Consultation: Acute cholecystitis History of Present Illness Trinidad is a pleasant 82 year-old female with history of CAD, CHF, CKD who presented to emergency room yesterday with complaint of increasing RUQ abdominal pain with associated nausea. Trinidad states she has been having intermittent mild RUQ abdominal pain that comes and goes with mild nausea but no vomiting. States she didn't think anything of it as she has chronic back pain and it was nothing severe. She states she noticed increasing pain in the last few days with associated nausea but no vomiting and diarrhea. Never had pain like this before or no prior history of problems with her gallbladder. No blood in stools or black/tarry stools. No chest pain or shortness of breath. She had a CT scan of abdomen and pelvis which showed cholelithiasis with evidence of severe acute cholecystitis and mild intra and exrahepatic biliary ductal dilatation with CBD measuring 11mm. Labs originally showed leukocytosis of 15k, AST 178, ALT 108, [place]K PHOS 142, [place] [address], TODAYS IMPROVEMENT IN LABS: Lipase 51,602 --> 7064 TB 0.9 --> 0.5 AST 179 --> 112 ALT 108 --> 103 ALKP 142 --> 115 Since admission, Trinidad states she is feeling better but still having moderate abdominal pain that is controlled with pain medication. She states she would be in a lot of pain if she did not have the pain medication. No chest pain or shortness of breath. No fevers or chills. Past Medical/Surgical History Medical Problems: 1. CAD 2. CHF 3. CKD 4. Chronic back pain Past surgical history: Right Breast Mastectomy Lumbar disk replacement Family History FH: cancer Heart disease Hypertension Social History Smoking Status: Never Smoker Drug Use: none Marital Status: Housing Status: lives with significant other Occupation Status: retired Allergies Coded Allergies: Milk (Verified Allergy, Intermediate, UNKNOWN, 03/17/14) Sulfa Drugs (Verified Allergy, Intermediate, RASH FROM HEAD TO TOE, ) Latex (Verified Allergy, Mild, RASH, 03/17/14) Oxycodone (Verified Allergy, Mild, ITCHING, 03/17/14) Shellfish (Verified Allergy, Mild, `, 03/17/14) Soap (Verified Allergy, Mild, DETERGENTS-RASH, 03/17/14) Adhesives (Verified Allergy, Unknown, LOCAL SKIN IRRITATION, 03/17/14) CI Pigment Blue 63 (Verified Allergy, Unknown, RESTLESS LEGS, 03/17/14) Diphenhydramine (Verified Allergy, Unknown, _, 06/09/12) Hydrochlorothiazide (Verified Allergy, Unknown, RENAL COMPLICATIONS, HIVES ?, 03/17/14) Ibuprofen (Verified Allergy, Unknown, RESTLESS LEGS,RASH?, 03/17/14) Indigotindisulfonate (Verified Allergy, Unknown, RESTLESS LEGS,RASH, ) Ciprofloxacin (Verified Adverse Reaction, Intermediate, SEVERE NAUSEA AND VOMITING, 03/17/14) Nitrofurantoin (Verified Adverse Reaction, Intermediate, SEVERE NAUSEA AND VOMITING, 03/17/14) Lactose Intolerance (Verified Adverse Reaction, Unknown, GI SYMPTOMS, 03/17) Home Medications Scheduled Allopurinol (Allopurinol), 150 MG PO DAILY Aspirin (Aspirin Adult Low Strengt), 1 TAB PO DAILY Atorvastatin (Lipitor), 20 MG PO HS Cetirizine HCl (Ra Allergy Relief), 10 MG PO DAILY Fluticasone Prop/Salmeterol (Advair Diskus 500/50 60 Dose), 1 PUFF INH BID Furosemide (Furosemide), 20 MG PO WK Gabapentin (Gabapentin), 100 MG PO TID Levothyroxine Sodium (Levothyroxine Sodium), 50 MCG PO DAILY Linaclotide (Linzess), 145 MCG PO DAILY Metoprolol Succinate (Toprol Xl), 50 MG PO DAILY Montelukast Sod (Montelukast Sodium), 10 MG PO HS Multivitamins/Minerals (Mvi With Minerals), 1 TAB PO DAILY Pantoprazole (Pantoprazole Sodium), 40 MG PO DAILY Ranitidine Hcl (Zantac), 300 MG PO HS Telmisartan (Telmisartan), 40 MG PO DAILY Scheduled PRN Benzonatate (Benzonatate), 100 MG PO TID PRN for Cough Tramadol (Ultram), 1 TAB PO TID PRN for Pain [Proair Hfa 90 Mcg], 2 PUFF INH Q4 PRN for SOB/Wheezing Current Inpatient Medications Current Inpatient Medications Medications (Trade) Dose Ordered Sig/Yessica Route Start Time Stop Time Status Last Admin Dose Admin Ioversol (Optiray 320) 100 ml UD PRN IV 11/27/17 19:00 12/01/17 18:59 Heparin Sodium (Porcine) (Heparin Sq 5000 Unit/0.5ml) 5,000 unit Q8 SQ 11/28/17 06:00 12/28/17 05:59 Future Hold 11/28/17 06:04 5,000 UNIT Salmeterol Xinafoate/ Fluticasone (Advair Diskus 500/50 Inh) 1 puff BID INH 11/28/17 09:00 12/28/17 08:59 11/28/17 07:52 1 PUFF Metoprolol Tartrate (Lopressor Iv) 5 mg Q6 IV. 11/28/17 00:00 12/28/17 00:00 11/28/17 11:28 5 MG Levothyroxine Sodium 25 mcg/ Syringe 1.25 ml @ 2 mls/min DAILY@09 IV 11/28/17 09:00 12/28/17 08:59 11/28/17 08:41 2 MLS/MIN Pantoprazole Sodium 40 mg/ Syringe 10 ml @ 5 mls/min DAILY@11 IV 11/28/17 11:00 12/28/17 10:59 11/28/17 11:26 5 MLS/MIN Cefoxitin Sodium 1000 mg/Dextrose 60 ml @ 100 mls/hr Q6H IV 11/28/17 02:00 12/08/17 01:59 11/28/17 07:51 100 MLS/HR Hydromorphone HCl (Dilaudid Inj) 1 mg Q4H PRN IV 11/27/17 22:00 12/11/17 21:59 11/28/17 11:24 1 MG Lactated Ringer's 1,000 ml @ 200 mls/hr Q5H IV 11/28/17 12:00 12/28/17 11:59 UNV Review of Systems Constitutional: No fever, No chills Respiratory: No cough, No shortness of breath Cardiovascular: No chest pain Abdomen: + pain, + nausea, + diarrhea, No vomiting, No constipation, No GI bleeding Musculoskeletal: + problem reported (chronic back pain) Genitourinary - Female: No dysuria Endocrine: No fatigue Integumentary: No rash Physical Exam Date Time Temp Pulse Resp B/P (MAP) Pulse Ox O2 Delivery O2 Flow Rate FiO2 11/28/17 11:28 73 146/82 11/28/17 08:00 Room Air 11/28/17 07:16 36.7 80 18 129/70 (89) 94 Room Air 11/28/17 06:04 78 133/79 11/28/17 06:03 78 133/79 (97) 11/28/17 04:00 Room Air 11/28/17 03:24 36.6 71 17 135/83 (100) 93 Room Air 11/28/17 00:03 79 174/80 11/28/17 00:00 Room Air 11/27/17 22:55 36.7 65 18 174/80 (111) 95 Room Air 11/27/17 22:33 36.9 65 18 176/82 96 Room Air 11/27/17 21:40 80 18 175/86 96 Room Air 11/27/17 21:03 76 20 170/101 97 Room Air 11/27/17 20:10 78 20 171/93 98 Room Air 11/27/17 19:23 80 18 177/104 98 Room Air 11/27/17 15:53 36.5 85 18 157/88 95 Room Air General Appearance: WD/WN, no apparent distress Head: normocephalic, atraumatic Eyes: sclerae normal ENT: hearing grossly normal Neck: trachea midline Respiratory/Chest: lungs clear, normal breath sounds, no respiratory distress, no accessory muscle use Cardiovascular: regular rate, rhythm, no murmur Abdomen/GI: soft, no organomegaly, no pulsatile mass, + tenderness (in RUQ on mild palpation, Positive Alcantara's sign), + pertinent finding (able to feel the distended gallbladder on examination) Back: normal inspection Neurologic/Psych: alert, normal mood/affect, oriented x 3 Skin: normal color, warm/dry, no rash Laboratory Results Last 24 Hours Test 11/27/17 19:12 11/28/17 05:57 11/28/17 11:26 White Blood Count 15.68 K/uL 8.67 K/uL Red Blood Count 4.40 M/uL 3.97 M/uL Hemoglobin 14.3 g/dL 12.6 g/dL Hematocrit 41.3 % 37.3 % Mean Corpuscular Volume 93.9 fL 94.0 fL Mean Corpuscular Hemoglobin 32.5 pg 31.7 pg Mean Corpuscular Hemoglobin Concent 34.6 g/dl 33.8 g/dl Platelet Count 296 K/uL 224 K/uL Mean Platelet Volume 10.0 fL 9.9 fL Neutrophils (%) (Auto) 75.9 % Lymphocytes (%) (Auto) 14.2 % Monocytes (%) (Auto) 8.9 % Eosinophils (%) (Auto) 0.2 % Basophils (%) (Auto) 0.3 % Neutrophils # (Auto) 11.92 K/uL Lymphocytes # (Auto) 2.22 K/uL Monocytes # (Auto) 1.39 K/uL Eosinophils # (Auto) 0.03 K/uL Basophils # (Auto) 0.04 K/uL RDW Standard Deviation 54.7 fL 55.7 fL RDW Coefficient of Variation 15.9 % 16.1 % Immature Granulocyte % (Auto) 0.5 % Immature Granulocyte # (Auto) 0.08 K/uL Prothrombin Time 10.2 SECONDS Prothromb Time International Ratio 1.0 Sodium Level 137 mmol/L 141 mmol/L Potassium Level 3.8 mmol/L 3.9 mmol/L Chloride Level 104 mmol/L 111 mmol/L Carbon Dioxide Level 25 mmol/L 21 mmol/L Anion Gap 8.0 mmol/L 9.0 mmol/L Blood Urea Nitrogen 16 mg/dl 11 mg/dl Creatinine 1.02 mg/dl 0.86 mg/dl Est Creatinine Clear Calc Drug Dose 39.6 ml/min 47.0 ml/min Estimated GFR () 59.3 72.9 Estimated GFR (Non- 51.2 62.9 BUN/Creatinine Ratio 15.4 12.8 Random Glucose 107 mg/dl 82 mg/dl Calcium Level 9.1 mg/dl 8.0 mg/dl Total Bilirubin 0.9 mg/dl 0.5 mg/dl Direct Bilirubin 0.4 mg/dl Aspartate Amino Transf (AST/SGOT) 178 U/L 112 U/L Alanine Aminotransferase (ALT/SGPT) 108 U/L 103 U/L Alkaline Phosphatase 142 U/L 115 U/L Total Protein 7.7 gm/dl 6.0 gm/dl Albumin 3.7 gm/dl 2.7 gm/dl Lipase 11304 U/L 7064 U/L Phosphorus Level 3.2 mg/dl Magnesium Level 2.1 mg/dl Globulin 3.3 gm/dl Albumin/Globulin Ratio 0.8 CT SCAN OF THE ABDOMEN AND PELVIS WITH IV CONTRAST CLINICAL HISTORY: Epigastric abdominal pain. COMPARISON STUDY: Abdominal CT dated 11/27/2017. TECHNIQUE: Following the IV administration of 115 cc of Optiray 320, CT scan of the abdomen and pelvis is performed from the lung bases to the proximal femora. Images are reviewed in the axial, sagittal, and coronal planes. IV contrast was administered without complication. A dose lowering technique was utilized adhering to the principles of ALARA. CT DOSE: 899.99 mGycm FINDINGS: Lung bases: The heart is enlarged and without pericardial effusion. There are coronary artery calcifications. A 3 mm nodule at the left lung base on image #13 is unchanged dating back to 2008 and of doubtful significance. There are scattered calcified granulomas. The lung bases are otherwise clear noting dependent atelectasis. There is a small hiatal hernia. Liver: The contrast-enhanced liver is normal in size, contour, and attenuation. There is mild intrahepatic biliary ductal dilatation. The hepatic veins and portal veins are patent. Gallbladder: There are small calcified gallstones identified. The gallbladder is distended. The gallbladder wall is thickened and hyperemic and there is pericholecystic inflammatory stranding and fluid. The appearance is consistent with acute cholecystitis. The common bile duct is dilated measuring up to 11 mm in diameter. Spleen: Normal in size and attenuation. Pancreas: Moderately atrophic and grossly unremarkable. Adrenal glands: Unremarkable. Kidneys: The contrast enhanced kidneys are atrophic and without hydronephrosis. The kidneys enhance symmetrically. 1.7 cm cyst is noted in the right lower pole. Abdominal vasculature: The abdominal aorta is normal in course and caliber noting moderate atherosclerotic calcification. Bowel: There is moderate sigmoid diverticulosis without CT evidence of acute diverticulitis. No bowel obstruction is seen. The appendix is well-visualized and normal. Peritoneum: There is no intraperitoneal free air or abdominal ascites. There is a small fat-containing umbilical hernia. Lymphadenopathy: None. Pelvic viscera: The bladder is decompressed but appears thick-walled and hyperemic. Mild pericystic inflammation is identified. The uterus and adnexa are normal as visualized. Skeletal structures: The skeletal structures are osteopenic. Lumbar sacral spondylosis is observed. There are postoperative changes from L4-L5 spinal fusion. No lytic or blastic lesions are seen. IMPRESSION: 1. Cholelithiasis with evidence of severe acute cholecystitis. Surgical consultation is advised. 2. There is mild intra and extrahepatic biliary ductal dilatation. 3. Although the bladder is decompressed, the wall is thickened and hyperemic. Pericystic inflammation is identified. Correlate clinically and with urinalysis for evidence of cystitis. 4. Moderate sigmoid diverticulosis without CT evidence of acute diverticulitis. 5. Cardiomegaly and small hiatal hernia. 6. Additional findings as above. Assessment & Plan 82 year-old female who presented to emergency department with increasing RUQ abdominal pain with associated diarrhea and nausea. Found to have cholelithiasis with severe acute cholecystitis on CT scan with intra and extrahepatic biliary ductal dilatation. Elevated wbc on admission at 15K. [place] [address] consistent with Gallstones pancreatitis with acute cholecystitis. Plan: Recommend gallbladder US today to further evaluate gallbladder MRCP ordered by GI Daily LFTS, cbc, and lipase Discussed with patient the need for cholecystectomy however would like for her pancreatic enzyme to decrease and pancreatitis to improve prior to surgical intervention. Patient understood this. Will await evaluation by GI and MRCP results. Given cardiac history , recommend cardiology evaluation for preoperative clearance. Continue IV Fluids, IV antibiotics, IV pain management as needed She currently is NPO except meds, switch to NPO after midnight Hold Heparin after tonights dose 6 hours prior to OR (Scheduled Cholecystectomy at 11 am if labs improved and pending cardiology evaluation) Continue current medical management Seen patient with Dr. Fontenot who agrees with above.
[2017-11-28] MEDS: LACTATED RINGER'S 1000ML 1,000 ML IV SCH ×2 (13:30→19:33)
--- NOTE | 2017-11-28 15:24 | Cardiology Consultation ---
Cardiology Consultation Date of Service Nov 28, 2017. (Nancy Ross PA-C) Cardiology Consultation Requesting Provider: Adebayo Lang PA-C Attending Conductor/Engineer: Dr. Webb HPI: Patient is an 82-year-old female with history who follows with Dr. De Luna of [facility] cardiology as an outpatient. She carries a history of moderate nonobstructive coronary artery disease per prior cardiac catheterization in 2010. Catheterization showed intermediate LAD and Lcx lesions that were further evaluated with FFR in the lab. Both the LAD and Lcx lesions were found to be insignificant by FFR. No intervention was indicated. Medical management recommended. Patient had recent dobutamine stress echo in June 2017 for complaints of exertional dyspnea. Stress test was negative for inducible ischemia with preserved LV function.. Other history includes chronic left bundle branch block, hypertension, dyslipidemia, chronic diastolic heart failure, chronic kidney disease, and underlying asthma for which she reports recent evaluation with [facility] pulmonology group. She was recently treated with a 3 week taper of prednisone for ongoing cough, now improved. She was admitted to [facility] yesterday with concerns regarding worsening right upper quadrant pain. She was diagnosed with acute cholecystitis. Surgery recommended. Cardiology was consulted for preoperative cardiology evaluation and risk assessment. Time of consult patient resting comfortably in bed. Right upper quadrant pain controlled with pain medication. She denies recent or recurrent chest pain with exertion. No changes to her functional capacity. She reports ongoing dyspnea on exertion which is unchanged and she attributes this to her underlying asthma. This is the reason she underwent recent dobutamine stress echo which was negative. She denies recent palpitations, tachycardia palpitations. Per prior office notes Lasix was to be taken daily. She reports her PCP change this to 1-2 times weekly. No orthopnea, PND, lower extremity edema. Cough improved with recent steroid therapy. ROS: Pertinent positives as per HPI, 5 system, (cardiovascular, pulmonary, gastroenterologic, neurologic, musculoskeletal) system review otherwise negative. PMH: Senile osteoporosis Left bundle branch block Asthma Acquired hypothyroidism Nontoxic uninodular goiter Chondrocalcinosis of lower leg S/P SURGERY FOR LUMBAR DISC DISPLACEMENT Dyslipidemia, goal LDL below 100 ARPIT (generalized anxiety disorder) Atherosclerosis of [place] coronary artery of [place] heart without angina pectoris Essential tremor Gout Essential hypertension with goal blood pressure less than 140/90 Hiatal hernia with gastroesophageal reflux Venous stasis Heart failure, diastolic, due to HTN Kidney disease, chronic, stage III (GFR 30-59 ml/min) DDD (degenerative disc disease), cervical M50.30 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 Family history of malignant melanoma Social History Substance Use Topics Smoking status: Never Smoker Smokeless tobacco: Never Used Comment: no passive smoke exposures Alcohol use No Comment: never ever Surgical History: Procedure Laterality Date Age Comment COLORECTAL CANCER SCREEN;COLON 61y colonoscopy-done 2002, due 2007 INSERTION OF LENS PROSTHESIS 01/23 69y bilateral DEXA SCAN/BONE MINERAL AXIAL 02/18/08 72y repeat in 3 years OTHER 02/25 72y back surgery, disc replacement, fusion L3-4 COLONOSCOPY 08/29 73y repeat in 5 years PUNCTURE DRAINAGE BREAST CYST 02/15/2011 75y 02/15/2011-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 MASTECTOMY, PARTIAL 03/25/[address] [place] COLONOSCOPY, DIAGNOSTIC (RECTUM) 03/17/2014 78y adenomatous polyp, diverticulosis, repeat per PCP/done @ [facility] REMOVE TONSILS & ADENOIDS, AGE 12+ age 14 Family History: Non contributory Review of patient's allergies indicates: Allergen Reactions Latex Rash Macrobid [Nitrofurantoin Monohydrate Macrocrystals] Nausea/vomiting Severe, needed to go to the hospital Shellfish asthma attacks Sulfa Antibiotics Hives and Rash Oxycodone-Acetaminophen Itching Advil Pm [Ibuprofen-Diphenhydramine Cit] Other (Please comment) "I feel the same as when I take Benadryl" Benadryl [Diphenhydramine Hcl] I felt like I had to move my arms and legs Celebrex [Celecoxib] Swelling hands, legs, ankles, face Hctz [Hydrodiuril] Renal complications hyponatremia Reported Home Medications Medications Dose Route/Sig Max Daily Dose Days Date Category Dose Instructions Furosemide 20 Mg Tab 20 Mg PO WK 11/27/17 Reported Aspirin Adult Low Strengt (Aspirin) 81 Mg Tab 1 Tab PO DAILY 11/27/17 Reported [Proair Hfa 90 Mcg] 2 Puff INH Q4 PRN 11/27/17 Reported Telmisartan 40 Mg Tab 40 Mg PO DAILY 11/27/17 Reported Linzess (Linaclotide) 145 Mcg Cap 145 Mcg PO DAILY 11/27/17 Reported Toprol Xl (Metoprolol Succinate) 50 Mg Tabcr 50 Mg PO DAILY 11/27/17 Reported Levothyroxine Sodium 50 Mcg Tab 50 Mcg PO DAILY 11/27/17 Reported Ra Allergy Relief (Cetirizine HCl) 10 Mg Tab 10 Mg PO DAILY 11/27/17 Reported Advair Diskus 500/50 60 Dose (Fluticasone Prop/Salmeterol) 1 Ea Aerp 1 Puff INH BID 11/27/17 Reported Benzonatate 100 Mg Cap 100 Mg PO TID PRN 11/27/17 Reported Zantac (Ranitidine Hcl) 300 Mg Tab 300 Mg PO HS 11/27/17 Reported Ultram (Tramadol HCl) 50 Mg Tab 1 Tab PO TID PRN 30 08/04/16 Reported Gabapentin 100 Mg Cap 100 Mg PO TID 03/11/16 Reported Allopurinol 300 Mg Tab 150 Mg PO DAILY 03/11/[address] changed to 150 mg daily Pantoprazole Sodium (Pantoprazole) 40 Mg Tab 40 Mg PO DAILY 03/11/16 Reported Montelukast Sodium (Montelukast Sod) 10 Mg Tab 10 Mg PO HS 03/11/16 Reported Lipitor (Atorvastatin Calcium) 20 Mg Tab 20 Mg PO HS 03/11/16 Reported Mvi With Minerals (Multivitamins/Minerals) Tab 1 Tab PO DAILY 06/29/09 Reported OBJECTIVE/PHYSICAL EXAMINATION: Last 8 Hrs Date Time Temp Pulse Resp B/P (MAP) Pulse Ox O2 Delivery O2 Flow Rate FiO2 11/28/17 12:00 Room Air 11/28/17 11:28 36.8 73 18 146/82 (103) 94 Room Air 11/28/17 11:28 73 146/82 11/28/17 08:00 Room Air 11/28/17 07:16 36.7 80 18 129/70 (89) 94 Room Air General: NAD, AAO x3, well nourished. HEENT: Normocephalic. Atraumatic. Conjunctiva pink, no scleral icterus. No carotid bruits, the carotid upstrokes are brisk. No JVD. No HJR Heart: Regular normal S-1 and S-2 no S-3 or S-4 gallop. No murmurs or rubs appreciated. PMI is not displaced. No RV heave. Lungs: Scattered expiratory wheeze noted. No rales. Abdomen: Normal bowel sounds. Soft. Nontender. No masses or organomegaly. No abdominal bruits. Extremities: No edema. No clubbing, cyanosis. Pulses: radial=2/4, Dorsalis pedis =2/4, posterior tibial=2/4. Neuro: No focal deficits. DATA: Admission EKG Normal sinus rhythm at 72 bpm Left axis deviation Non-specific intra-ventricular conduction delay No significant change from prior EKG. Chest x-ray on admission reviewed: IMPRESSION: 1. Cardiomegaly without radiographic evidence of congestive failure. 2. Bibasilar airspace opacities likely represent atelectasis. Correlate clinically for evidence of superimposed pneumonia. MRCP report reviewed: 1. Mildly distended gallbladder with a small amount of pericholecystic fluid and a small gallstone. This is concerning for acute cholecystitis. Clinical correlation recommended. 2. Mild intra and extra hepatic bile duct dilatation. No evidence for a common bile duct stone. 3. The main pancreatic duct is normal in course and caliber. 4. Mild peripancreatic edema suggestive of acute pancreatitis. Labs: Last 24 Hours Test 11/27/17 19:12 11/28/17 05:57 11/28/17 11:26 White Blood Count 15.68 K/uL 8.67 K/uL Red Blood Count 4.40 M/uL 3.97 M/uL Hemoglobin 14.3 g/dL 12.6 g/dL Hematocrit 41.3 % 37.3 % Mean Corpuscular Volume 93.9 fL 94.0 fL Mean Corpuscular Hemoglobin 32.5 pg 31.7 pg Mean Corpuscular Hemoglobin Concent 34.6 g/dl 33.8 g/dl Platelet Count 296 K/uL 224 K/uL Mean Platelet Volume 10.0 fL 9.9 fL Neutrophils (%) (Auto) 75.9 % Lymphocytes (%) (Auto) 14.2 % Monocytes (%) (Auto) 8.9 % Eosinophils (%) (Auto) 0.2 % Basophils (%) (Auto) 0.3 % Neutrophils # (Auto) 11.92 K/uL Lymphocytes # (Auto) 2.22 K/uL Monocytes # (Auto) 1.39 K/uL Eosinophils # (Auto) 0.03 K/uL Basophils # (Auto) 0.04 K/uL RDW Standard Deviation 54.7 fL 55.7 fL RDW Coefficient of Variation 15.9 % 16.1 % Immature Granulocyte % (Auto) 0.5 % Immature Granulocyte # (Auto) 0.08 K/uL Prothrombin Time 10.2 SECONDS Prothromb Time International Ratio 1.0 Sodium Level 137 mmol/L 141 mmol/L Potassium Level 3.8 mmol/L 3.9 mmol/L Chloride Level 104 mmol/L 111 mmol/L Carbon Dioxide Level 25 mmol/L 21 mmol/L Anion Gap 8.0 mmol/L 9.0 mmol/L Blood Urea Nitrogen 16 mg/dl 11 mg/dl Creatinine 1.02 mg/dl 0.86 mg/dl Est Creatinine Clear Calc Drug Dose 39.6 ml/min 47.0 ml/min Estimated GFR () 59.3 72.9 Estimated GFR (Non- 51.2 62.9 BUN/Creatinine Ratio 15.4 12.8 Random Glucose 107 mg/dl 82 mg/dl Calcium Level 9.1 mg/dl 8.0 mg/dl Total Bilirubin 0.9 mg/dl 0.5 mg/dl Direct Bilirubin 0.4 mg/dl Aspartate Amino Transf (AST/SGOT) 178 U/L 112 U/L Alanine Aminotransferase (ALT/SGPT) 108 U/L 103 U/L Alkaline Phosphatase 142 U/L 115 U/L Total Protein 7.7 gm/dl 6.0 gm/dl Albumin 3.7 gm/dl 2.7 gm/dl Lipase 57273 U/L 7064 U/L Phosphorus Level 3.2 mg/dl Magnesium Level 2.1 mg/dl Globulin 3.3 gm/dl Albumin/Globulin Ratio 0.8 Troponin I < 0.015 ng/ml Prior DATA: Dobutamine stress echocardiography June,: The stress echo is negative for inducible ischemia. There was an adequate and appropriate heart rate and blood pressure response to the dobutamine/atropine stress Protocol. With stress infusion the patient complained of shortness of breath and tremulousness disproportionate to physical and echocardiographic findings. Interventricular conduction delay was noted at rest. Left bundle branch block occurred with stress. Uninterpretable Stress EKG due to repolarization changes of Left bundle branch block. At rest there is a dyssynergy contraction pattern to the septum consistent with conduction abnormality with all other wall segments lj normally The left ventricular wall motion with stress is normal. The left ventricular ejection fraction increases normally with stress. The left ventricular cavity size is normal. The LV wall thickness is mildly increased ( concentric). The qualitative LV ejection fraction is 55-59% (normal). ASSESSMENT: 82-year-old female 1. Preoperative cardiology evaluation and risk assessment prior to undergoing cholecystectomy due to acute cholecystitis. 2. History of moderate CAD per cath in 2010. Medical management recommended at that time. - clinically stable without angina. - dobutamine stress ECHO negative for inducible ischemia June, -Stable EKG on admission with chronic left bundle branch block. 3. HTN -Elevated on admission likely secondary to acute pain. -Improved with IV metoprolol 3. Chronic compensated diastolic heart failure. -Furosemide on hold -Gentle hydration only. Monitor fluid status and symptoms closely. 5. 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 Stable findings. 6. Chronic LE edema secondary to venous insufficiency -controlled 7. Dyslipidemia -atorvastatin on hold due to elevated LFTs. PLAN: Stable cardiac signs and symptoms. No recent anginal or CHF symptoms. Recent dobutamine stress echo was negative for inducible ischemia with preserved LV function. Chronic left bundle branch block unchanged. Acceptable to hold aspirin in the preoperative setting. Resume in the postop setting She is currently n.p.o. including medications and agree with IV metoprolol therapy in place of her home dose of Toprol 50 mg daily. Hold atorvastatin given elevated LFT's. Gentle hydration only. Monitor fluid status closely to prevent acute CHF exacerbation. No cardiac contraindications to proceeding with cholecystectomy as planned tomorrow. No further cardiac testing warranted at this time. Case to be discussed lenny Webb. Will follow. (Nancy Ross PA-C) CARDIOLOGY ATTENDING ADDENDUM: The patient was seen and personally examined. Agree with Nancy Ross PA-C's findings and plans as documented above. The patient may proceed to surgery with an acceptable low risk of cardiovascular event. No additional cardiac testin will change this risk assessment the patient is currently optimally medically managed. (Jorden Webb, )
--- NOTE | 2017-11-28 15:38 | Anesthesiology Progress Note ---
Anesthesia Progress Note Date of Service Nov 28, 2017. Progress Notes This is an 82 y/o w obese femalew/acute cholecystitis/acute pancreatitis presenting for a Lap. cholecystectomy.PMHx is sig. for CAD,s/p cardiac cath 2010 showing moderate disease,HTN,Hyperlipidemia,,stable asthma,diastolic CHF, chronic LBBB,GERD,hypothyroidism,CKD stage 3,hx/o right breast cancer,s/p right mastectomy,hypoalbuminemic,and increased LFT's trending downward.Discussed anesthesia w/ pt risks vs benefits,all questions answered.Informed consent obtained. ASA 4
[2017-11-28] MEDS: ONDANSETRON INJ 2 MG/ML 2 ML VIAL IV PRN (19:29)
--- NOTE | 2017-11-28 20:26 | Progress Note ---
Internal Med Progress Note Date of Service: Nov 28, 2017. Provider Documentation: SUBJECTIVE: resting comfortably abdominal pain better has some nausea afebrile no chest pain or sob awaiting surgery in am OBJECTIVE: Vital Signs-as noted below Exam: General-alert and oriented. Not in distress ENT-normal hearing. Neck-No neck masses Lungs-CTA b/l no wheezing or crackles Heart-S1 and S2 heard regular rate and rhythm no murmurs Abdomen-soft Bowels sounds present mild ruq tender no distension Extremities-no edema no erythema Neuro-alert and oriented moves extremities Lab data as noted below. ASSESSMENT & PLAN: 1. Acute cholecystitis with gallstones. on ct scan, mrcp and US npo, iv abx, iv fluids plan for surgery in am. 2. Acute gall stone pancreatitis on aggressive fluids, npo, iv pain meds and antiemetics. Plan for cholecystectomy in am. 3. Mild asthma, seems to be controlled at this time. will monitor. 4. Hypertension. po meds on hold. on iv Lopressor.if still elevated iv hydralazine prn. 5. Hypothyroidism. Synthroid IV. 6. Hyperlipidemia. Holding statin right now. 7. Hiatal hernia with esophageal reflux. Protonix IV. 8. Chronic diastolic CHF.On Lasix prn at home which is held. monitor for volume overload as patient on aggressive fluids for pancreatitis.cardiology on board. 9. Deep venous thrombosis prophylaxis with subcutaneous heparin. 10. Code status, full code. DVT PROPHYLAXIS hep sub q DISPOSITION to be determined monitor in tele Vital Signs: Date Time Temp Pulse Resp B/P (MAP) Pulse Ox O2 Delivery O2 Flow Rate FiO2 11/28/17 19:43 36.6 75 20 156/76 (102) 95 Room Air 11/28/17 18:00 70 168/78 11/28/17 16:00 Room Air 11/28/17 15:20 36.8 67 19 136/79 (98) 91 Room Air 11/28/17 12:00 Room Air 11/28/17 11:28 36.8 73 18 146/82 (103) 94 Room Air 11/28/17 11:28 73 146/82 11/28/17 08:00 Room Air 11/28/17 07:16 36.7 80 18 129/70 (89) 94 Room Air 11/28/17 06:04 78 133/79 11/28/17 06:03 78 133/79 (97) 11/28/17 04:00 Room Air 11/28/17 03:24 36.6 71 17 135/83 (100) 93 Room Air 11/28/17 00:03 79 174/80 11/28/17 00:00 Room Air 11/27/17 22:55 36.7 65 18 174/80 (111) 95 Room Air 11/27/17 22:33 36.9 65 18 176/82 96 Room Air 11/27/17 21:40 80 18 175/86 96 Room Air 11/27/17 21:03 76 20 170/101 97 Room Air Lab Results: Results Past 24 Hours Test 11/28/17 05:57 11/28/17 11:26 11/28/17 11:36 Range/Units White Blood Count 8.67 4.8-10.8 K/uL Red Blood Count 3.97 4.2-5.4 M/uL Hemoglobin 12.6 12.0-16.0 g/dL Hematocrit 37.3 37-47 % Mean Corpuscular Volume 94.0 80-100 fL Mean Corpuscular Hemoglobin 31.7 25-34 pg Mean Corpuscular Hemoglobin Concent 33.8 32-36 g/dl RDW Standard Deviation 55.7 36.4-46.3 fL RDW Coefficient of Variation 16.1 11.5-14.5 % Platelet Count 224 130-400 K/uL Mean Platelet Volume 9.9 7.4-10.4 fL Sodium Level 141 136-145 mmol/L Potassium Level 3.9 3.5-5.1 mmol/L Chloride Level 111 98-107 mmol/L Carbon Dioxide Level 21 21-32 mmol/L Anion Gap 9.0 3-11 mmol/L Blood Urea Nitrogen 11 7-18 mg/dl Creatinine 0.86 0.60-1.20 mg/dl Est Creatinine Clear Calc Drug Dose 47.0 ml/min Estimated GFR () 72.9 Estimated GFR (Non- 62.9 BUN/Creatinine Ratio 12.8 10-20 Random Glucose 82 70-99 mg/dl Calcium Level 8.0 8.5-10.1 mg/dl Phosphorus Level 3.2 2.5-4.9 mg/dl Magnesium Level 2.1 1.8-2.4 mg/dl Total Bilirubin 0.5 0.2-1 mg/dl Aspartate Amino Transf (AST/SGOT) 112 15-37 U/L Alanine Aminotransferase (ALT/SGPT) 103 12-78 U/L Alkaline Phosphatase 115 45-117 U/L Total Protein 6.0 6.4-8.2 gm/dl Albumin 2.7 3.4-5.0 gm/dl Globulin 3.3 2.5-4.0 gm/dl Albumin/Globulin Ratio 0.8 0.9-2 Lipase 7064 73-393 U/L Troponin I < 0.015 0-0.045 ng/ml Bedside Glucose 82 70-90 mg/dl
[2017-11-28] MEDS: ZOLPIDEM TARTRATE 5 MG TAB PO PRN (21:59)
[2017-11-29] VITALS (12 sets, daily range): BP systolic 137–181; BP diastolic 69–86; PULSE 63–103; TEMP 36.6–37.4; O2SAT 93–97
[2017-11-29] MEDS: LACTATED RINGER'S 1000ML 1,000 ML IV SCH ×4 (02:21→20:37)
[2017-11-29] MEDS: CEFOXITIN IV 1,000 MG in DEXTROSE 5% 50ML 50 ML IV SCH ×4 (02:21→20:37)
[2017-11-29 05:53] LABS: HEMOGLOBIN 12.5 g/dL (12.0-16.0); MEAN CELL VOLUME 93.2 fL (80-100); MEAN CORPUSCULAR HEMOGLOBIN 31.5 pg (25-34); MEAN CORPUSCULAR HGB CONC 33.8 g/dl (32-36); MEAN PLATELET VOLUME 9.7 fL (7.4-10.4); PLATELET COUNT 224 K/uL (130-400); RED CELL DISTRIBUTION WIDTH CV 15.7 % (11.5-14.5); RED CELL DISTRIBUTION WIDTH SD 53.3 fL (36.4-46.3); WHITE BLOOD COUNT 10.19 K/uL (4.8-10.8)
[2017-11-29] MEDS: METOPROLOL TARTRATE 1 MG/ML VIAL IV. SCH ×3 (05:56→17:11)
[2017-11-29 06:33] LABS: ALBUMIN 2.8 gm/dl (3.4-5.0); CALCIUM 8.5 mg/dl (8.5-10.1); CREATININE 0.86 mg/dl (0.60-1.20); POTASSIUM 4.1 mmol/L (3.5-5.1); TOTAL PROTEIN 6.3 gm/dl (6.4-8.2)
[2017-11-29] MEDS ORDERED: HydrALAZINE HCL 20 MG/ML VIAL IV. PRN (07:45)
[2017-11-29] MEDS: FLUTICASONE/SALMETEROL (ADVAIR) 500/50 INH 14 PUFF INH SCH ×2 (08:03→20:37)
--- NOTE | 2017-11-29 08:42 | Gastroenterology Progress Note ---
Progress Note Date of Service: Nov 29, 2017 Subjective Pt evaluation today including: conversation w/ patient, physical exam, chart review, lab review Pt was seen and evaluated, chart reviewed. LFTs nearly normalized this AM. Symptoms are persistent this AM. RUQ and epigastric pain, constant dull. No nausea, vomiting. Denies fever, chills, CP, SOB. Lipase 51,602 --> 7064 --> 491 TB 0.9 --> 0.5 --> 0.7 AST 179 --> 112 --> 61 ALT 108 --> 103 --> 73 ALKP 142 --> 115 --> 109 MRCP 11/27/17: Mildly distended gallbladder with a small amount of pericholecystic fluid ayala small gallstone. This is concerning for acute cholecystitis. Clinicalcorrelation recommended. Mild intra and extra hepatic bile duct dilatation. No evidence for a commonbile duct stone.The main pancreatic duct is normal in course and caliber.Mild peripancreatic edema suggestive of acute pancreatitis. CT ABD/Pelvis 11/27/17: Cholelithiasis with evidence of severe acute cholecystitis. Surgical consultation is advised. There is mild intra and extrahepatic biliary ductal dilatation. CBD 11 Review of Systems Constitutional: No fever, No chills Respiratory: No cough, No shortness of breath Cardiac: No chest pain, No edema Abdomen: + pain, No nausea, No vomiting, No diarrhea, No constipation, No GI bleeding Medications Current Inpatient Medications Medications (Trade) Dose Ordered Sig/Yessica Route Start Time Stop Time Status Last Admin Dose Admin Ioversol (Optiray 320) 100 ml UD PRN IV 11/27/17 19:00 12/01/17 18:59 Heparin Sodium (Porcine) (Heparin Sq 5000 Unit/0.5ml) 5,000 unit Q8 SQ 11/28/17 06:00 12/28/17 05:59 Future Hold 11/28/17 21:59 5,000 UNIT Salmeterol Xinafoate/ Fluticasone (Advair Diskus 500/50 Inh) 1 puff BID INH 11/28/17 09:00 12/28/17 08:59 11/29/17 08:03 1 PUFF Metoprolol Tartrate (Lopressor Iv) 5 mg Q6 IV. 11/28/17 00:00 12/28/17 00:00 11/29/17 05:56 5 MG Levothyroxine Sodium 25 mcg/ Syringe 1.25 ml @ 2 mls/min DAILY@09 IV 11/28/17 09:00 12/28/17 08:59 11/28/17 08:41 2 MLS/MIN Pantoprazole Sodium 40 mg/ Syringe 10 ml @ 5 mls/min DAILY@11 IV 11/28/17 11:00 12/28/17 10:59 11/28/17 11:26 5 MLS/MIN Cefoxitin Sodium 1000 mg/Dextrose 60 ml @ 100 mls/hr Q6H IV 11/28/17 02:00 12/08/17 01:59 11/29/17 08:00 100 MLS/HR Hydromorphone HCl (Dilaudid Inj) 1 mg Q4H PRN IV 11/27/17 22:00 12/11/17 21:59 11/28/17 16:20 1 MG Lactated Ringer's 1,000 ml @ 100 mls/hr Q10H IV 11/28/17 13:00 12/28/17 12:59 11/29/17 08:07 100 MLS/HR Ondansetron HCl (Zofran Inj) 4 mg Q6H PRN IV 11/28/17 19:00 12/28/17 18:59 11/28/17 19:29 4 MG Zolpidem Tartrate (Ambien Tab) 5 mg HS PRN PO 11/28/17 19:45 12/28/17 19:44 11/28/17 21:59 5 MG Hydralazine HCl (HydrALAZINE INJ) 5 mg Q6 PRN IV. 11/29/17 07:45 12/29/17 07:44 Objective Vital Signs Date Time Temp Pulse Resp B/P (MAP) Pulse Ox O2 Delivery O2 Flow Rate FiO2 11/29/17 07:28 37.1 103 18 163/83 (109) 95 Room Air 11/29/17 05:56 89 166/82 11/29/17 04:31 37.1 89 20 166/82 (110) 94 Room Air 11/29/17 04:00 Room Air 11/29/17 00:00 Room Air 11/28/17 23:34 75 156/76 11/28/17 23:29 36.8 96 18 156/83 (107) 95 Room Air 11/28/17 20:19 Room Air 11/28/17 19:43 36.6 75 20 156/76 (102) 95 Room Air 11/28/17 18:00 70 168/78 11/28/17 16:00 Room Air 11/28/17 15:20 36.8 67 19 136/79 (98) 91 Room Air 11/28/17 12:00 Room Air 11/28/17 11:28 36.8 73 18 146/82 (103) 94 Room Air 11/28/17 11:28 73 146/82 Physical Exam General Appearance: no apparent distress Eyes: PERRL ENT: hearing grossly normal Neck: supple, trachea midline Respiratory/Chest: lungs clear, normal breath sounds Cardiovascular: regular rate, rhythm, no JVD, no murmur Abdomen: normal bowel sounds, soft, no organomegaly, no pulsatile mass, + tenderness (RUQ and epigastric ) Neurologic/Psych: alert, normal mood/affect, oriented x 3 Skin: normal color, warm/dry, no rash Laboratory Results Last 24 Hours Test 11/28/17 11:26 11/28/17 11:36 11/29/17 05:38 Troponin I < 0.015 ng/ml Bedside Glucose 82 mg/dl White Blood Count 10.19 K/uL Red Blood Count 3.97 M/uL Hemoglobin 12.5 g/dL Hematocrit 37.0 % Mean Corpuscular Volume 93.2 fL Mean Corpuscular Hemoglobin 31.5 pg Mean Corpuscular Hemoglobin Concent 33.8 g/dl RDW Standard Deviation 53.3 fL RDW Coefficient of Variation 15.7 % Platelet Count 224 K/uL Mean Platelet Volume 9.7 fL Sodium Level 136 mmol/L Potassium Level 4.1 mmol/L Chloride Level 104 mmol/L Carbon Dioxide Level 22 mmol/L Anion Gap 10.0 mmol/L Blood Urea Nitrogen 8 mg/dl Creatinine 0.86 mg/dl Est Creatinine Clear Calc Drug Dose 47.0 ml/min Estimated GFR () 72.9 Estimated GFR (Non- 62.9 BUN/Creatinine Ratio 8.7 Random Glucose 69 mg/dl Calcium Level 8.5 mg/dl Total Bilirubin 0.7 mg/dl Direct Bilirubin 0.2 mg/dl Aspartate Amino Transf (AST/SGOT) 61 U/L Alanine Aminotransferase (ALT/SGPT) 73 U/L Alkaline Phosphatase 109 U/L Total Protein 6.3 gm/dl Albumin 2.8 gm/dl Globulin 3.5 gm/dl Albumin/Globulin Ratio 0.8 Lipase 491 U/L Assessment and Plan Patient is a 82 year old female with acute onset epigastric RUQ pain following a month of intermittent RUQ pain, imaging concerning for acute cholecystitis, gallstone pancreatitis. She has some elevation of her transaminases w/ normal TB and ALKP, CBD 11mm. Concern for CBD stone. MRCP was negative, LFTs have nearly normalized - Biliary dilation - MRCP negative - LFTs normalized - No role for ERCP - Treat the pancreatitis - NPO for bowel rest - LR 200 ml/hr if tolerated given hx HF - analgesia prn - antiemetics prn - Cholecystitis - cholecystectomy per general surgery - Please call with any questions or concerns. I performed a history and physical examination of the patient. I have discussed the patient's case, impression and plan with SNEHA Schaefer. Her note reflects my findings and plan. Doing better from a pancreatitis standpoint. No role for ERCP at this point. Jefferson Ferreira MD
[2017-11-29] MEDS: LEVOTHYROXINE SODIUM INJ 25 MCG in SYRINGE 0 ML IV SCH (09:10)
--- NOTE | 2017-11-29 10:09 | Surgery Progress Note ---
Surgery Progress Note Date of Service Nov 29, 2017. Subjective Post OP Day: HD # 2 feeling better, able to sleep well last night Pain better but still dull pain present in RUQ no nausea or vomiting MRCP showed no CBD stone Cardiology consult- placed patient at low risk for cardiovascular event, no further testing, okay to proceed with cholecystectomy Objective Vital Signs: Date Time Temp Pulse Resp B/P (MAP) Pulse Ox O2 Delivery O2 Flow Rate FiO2 11/29/17 08:00 95 Room Air 11/29/17 07:28 37.1 103 18 163/83 (109) 95 Room Air 11/29/17 05:56 89 166/82 11/29/17 04:31 37.1 89 20 166/82 (110) 94 Room Air 11/29/17 04:00 Room Air 11/29/17 00:00 Room Air 11/28/17 23:34 75 156/76 11/28/17 23:29 36.8 96 18 156/83 (107) 95 Room Air 11/28/17 20:19 Room Air 11/28/17 19:43 36.6 75 20 156/76 (102) 95 Room Air 11/28/17 18:00 70 168/78 11/28/17 16:00 Room Air 11/28/17 15:20 36.8 67 19 136/79 (98) 91 Room Air 11/28/17 12:00 Room Air 11/28/17 11:28 36.8 73 18 146/82 (103) 94 Room Air 11/28/17 11:28 73 146/82 General Appearance: WD/WN, no apparent distress Head: normocephalic, atraumatic Neck: trachea midline Respiratory/Chest: lungs clear, normal breath sounds, no respiratory distress, no accessory muscle use Cardiovascular: regular rate, rhythm, no murmur Abdomen: non distended, soft, no organomegaly, no pulsatile mass, + tenderness (RUQ, mild, no rigidity, guarding, or rebound) Laboratory Results: Results Past 24 Hours Test 11/28/17 11:26 11/28/17 11:36 11/29/17 05:38 Range/Units Troponin I < 0.015 0-0.045 ng/ml Bedside Glucose 82 70-90 mg/dl White Blood Count 10.19 4.8-10.8 K/uL Red Blood Count 3.97 4.2-5.4 M/uL Hemoglobin 12.5 12.0-16.0 g/dL Hematocrit 37.0 37-47 % Mean Corpuscular Volume 93.2 80-100 fL Mean Corpuscular Hemoglobin 31.5 25-34 pg Mean Corpuscular Hemoglobin Concent 33.8 32-36 g/dl RDW Standard Deviation 53.3 36.4-46.3 fL RDW Coefficient of Variation 15.7 11.5-14.5 % Platelet Count 224 130-400 K/uL Mean Platelet Volume 9.7 7.4-10.4 fL Sodium Level 136 136-145 mmol/L Potassium Level 4.1 3.5-5.1 mmol/L Chloride Level 104 98-107 mmol/L Carbon Dioxide Level 22 21-32 mmol/L Anion Gap 10.0 3-11 mmol/L Blood Urea Nitrogen 8 7-18 mg/dl Creatinine 0.86 0.60-1.20 mg/dl Est Creatinine Clear Calc Drug Dose 47.0 ml/min Estimated GFR () 72.9 Estimated GFR (Non- 62.9 BUN/Creatinine Ratio 8.7 10-20 Random Glucose 69 70-99 mg/dl Calcium Level 8.5 8.5-10.1 mg/dl Total Bilirubin 0.7 0.2-1 mg/dl Direct Bilirubin 0.2 0-0.2 mg/dl Aspartate Amino Transf (AST/SGOT) 61 15-37 U/L Alanine Aminotransferase (ALT/SGPT) 73 12-78 U/L Alkaline Phosphatase 109 45-117 U/L Total Protein 6.3 6.4-8.2 gm/dl Albumin 2.8 3.4-5.0 gm/dl Globulin 3.5 2.5-4.0 gm/dl Albumin/Globulin Ratio 0.8 0.9-2 Lipase 491 73-393 U/L Assessment & Plan 82 year-old female with Gallstone pancreatitis and acute calculous cholecystitis. MRCP showing no CBD stone, improvement of LFTS, CBC, and Lipase. Abdomen soft, mildly tender in RUQ (vastly improved). Plan: Proceed with Laparoscopic Cholecystectomy today by DR. Fontenot. He will obtain consent prior to surgery. Heparin has been held Continue NPO
[2017-11-29] MEDS: PANTOprazole INJ 40 MG in SYRINGE 0 ML IV SCH (10:38)
[2017-11-29] MEDS ORDERED: LIDOCAINE HCL 2% 2 ML VIAL (20MG/ML) ONE (11:08)
[2017-11-29] MEDS ORDERED: PROPOFOL IV EMULSION 10 MG/ML 20 ML VIAL IV ONE (11:08)
[2017-11-29] MEDS ORDERED: MIDAZOLAM HCL 1 MG/ML 2ML VIAL ONE (11:08)
[2017-11-29] MEDS ORDERED: FENTANYL CITRATE INJ 50 MCG/1 ML 2 ML VIAL ONE ×3 (11:08→13:31)
[2017-11-29] MEDS ORDERED: ROCURONIUM BROMIDE 10 MG/ML 5 ML VIAL IV ONE (11:08)
--- NOTE | 2017-11-29 11:08 | History & Physical Bridge Note ---
H&P Re-Evaluation Bridge Note: I have examined the patient, reviewed the History & Physical and in the interval since the performance of the History & Physical I have noted the following changes of clinical significance: No changes noted
[2017-11-29] MEDS ORDERED: CEFAZOLIN 2000MG IV PUSH 15 ML IV STA (11:36)
[2017-11-29] MEDS ORDERED: LIDOCAINE HCL 1% 20 ML VIAL ONE (11:44)
[2017-11-29] MEDS ORDERED: BUPIVACAINE 0.5 % 5 MG/1 ML MPF 30ML VIAL ONE (11:44)
[2017-11-29] MEDS ORDERED: ONDANSETRON INJ 2 MG/ML 2 ML VIAL ONE (11:57)
[2017-11-29] MEDS ORDERED: DEXAMETHASONE SOD INJ 4 MG/ML VIAL ONE (11:57)
[2017-11-29] MEDS: BACITRACIN OINT 15 GM TUBE ONE ×2 (12:03→13:01)
[2017-11-29] MEDS ORDERED: LABETALOL HCL IV 5 MG/ML 20ML IV ONE (12:14)
[2017-11-29] MEDS ORDERED: NEOSTIGMINE METHYLSULFATE 5 MG/5 ML SYR ONE (12:28)
[2017-11-29] MEDS ORDERED: ESMOLOL HCL 10 MG/ML 10 ML VIAL ONE (12:28)
[2017-11-29] MEDS ORDERED: GLYCOPYRROLATE INJ 0.2 MG/ML VIAL ONE (12:28)
--- NOTE | 2017-11-29 12:56 | [facility] Post Operative Brief Note ---
Immediate Operative Summary Operative Date Nov 29, 2017. Pre-Operative Diagnosis Acute Cholecystitis with Gallstones Post-Operative Diagnosis Acute Cholecystitis with Gallstones Procedure(s) Performed Laparoscopic Cholecystectomy Surgeon Dr Fontenot [employer] Surgeon(s) Gin Lang PA-C Estimated Blood Loss 15CC Findings Consistent with Post-Op Diagnosis significant inflammation of gallbladder, with wall thickening and edema Fluids (cc crystalloids) 900ml Specimens A: Gallbladder and Contents Drains JG x1 Anesthesia Type General Complication(s) none Disposition Accompanied Pt To Recover: yes Disposition: Recovery Room / PACU
[2017-11-29] MEDS ORDERED: ONDANSETRON INJ 2 MG/ML 2 ML VIAL IV PRN (13:45)
[2017-11-29] MEDS ORDERED: ATROPINE SULFATE 0.1 MG/ML 5ML SYR IV PRN (13:45)
[2017-11-29] MEDS ORDERED: FENTANYL CITRATE INJ 50 MCG/1 ML 2 ML VIAL IV PRN (13:45)
[2017-11-29] MEDS ORDERED: EpHEDrine SULFATE INJ 50 MG/ML AMP IV PRN (13:45)
--- NOTE | 2017-11-29 14:49 | OPERATIVE REPORT ---
DATE OF OPERATION: 11/29/2017 PREOPERATIVE DIAGNOSIS: Acute cholecystitis, cholelithiasis. POSTOPERATIVE DIAGNOSIS: Same. PROCEDURE: Laparoscopic cholecystectomy. SURGEON: Anna Fontenot MD HORSE RACER: Gin Lang PA-C. ANESTHESIA: General. ESTIMATED BLOOD LOSS: About 15 mL. FINDINGS: Significant inflammation of the gallbladder, the gallbladder wall is thickening and edema. COMPLICATIONS: None. INDICATIONS FOR THE PROCEDURE: This is an 82-year-old female who presented with right upper quadrant pain. The patient had ultrasound and CT scan MRCP and confirmed patient has acute cholecystitis with gallstone. The patient will be required to do laparoscopy cholecystectomy and possible open, possible cholangiogram, possible subtotal cholecystectomy. I did talk to the patient and the patient's daughter and patient's about the benefit and risk and alternate procedure. I indicated the risks may include, but not limited such as bleeding, infection, injury to common bile duct, injury to bowel, bile leak, may need ERCP, cardiopulmonary complication, stroke, even . They understand. Patient's daughter signed the informed consent and I answered all questions. DETAILS OF PROCEDURE: We brought the patient to the OR, put the patient in the supine position. The patient received SCD on bilateral legs to prevent DVT. Also, the patient received 2 grams Ancef IV for prophylactic antibiotic. The patient's abdomen was prepped and draped in routine sterile fashion. After time out, I injected the local anesthesia around the umbilical. Then, I made a small incision just above umbilical, opened fascia and opened peritoneum under direct vision and put a Soniya trocar in, connected to CO2 to create pneumoperitoneum. Flow rate 6 liter per minute. Pressure not more than 14 mmHg. Once we get a nice pneumoperitoneum, we put the camera in and looked around the abdomen, it shows normal finding on the stomach, small bowel, large bowel, liver; however, the gallbladder shows significant inflammation and distention. There was significant edema. Confirmed, no acute cholecystitis. Then, we put another three 5 mm trocar on the right upper quadrant. Once all trocars in, we put a grasper in, to hold the base of the gallbladder, put direction to the diaphragm and put another grasper in, to hold the pouch of gallbladder, to put the latter to exposure the triangle of Calot. The cystic duct was identified and mobilized. Then, I put two 5 mm metal clip on the proximal cystic duct, one on the distal cystic duct then I used scissor for transect the cystic duct. Rechecked, no bile leak and no active bleeding. Then, the cystic artery was identified and mobilized. Then, I put two 5 mm metal clip on the proximal cystic artery, one on the distal cystic artery. I used a scissor for transection so cystic artery were retracted. No active bleeding. Then I used the Bovie to take down the gallbladder from the liver bed without active bleeding, no bile leak. Then, we pulled out the gallbladder through the catch bag. Then, we reinserted Soniya trocar in, connect to CO2 to create pneumoperitoneum again looked around the abdomen, no bile leak and no active bleeding. Because the patient has significant inflammation of gallbladder, I decided to put a 10 mm JG drainage in. Then, we removed all trocar under direct vision. No active bleeding from trocar site. Pneumoperitoneum was released. Then, we used a 3-0 nylon close to fix the JG tube on the skin and then we closed the umbilical incision, fascial layer by using #1 Vicryl [id number] x2, closed subcutaneous layer by using 2-0 Vicryl interrupted and closed the skin by using 4-0 Vicryl. Then, we closed another two 5 mm skin only by using 4-0 Vicryl and we put the dressing on. The patient tolerated the procedure well. All instrument, needle, sponge count correct x2 at the end of case. Patient transferred to recovery room in stable condition. After procedure, I did talk to the patient's daughter and the patient's about the OR finding and procedure we did, they understand. I answered all questions. I attest to the content of the Intraoperative Record and any orders documented therein. Any exception s are noted below.
--- NOTE | 2017-11-29 15:11 | Cardiology Follow-Up ---
Subjective General Date of Service: Nov 29, 2017. Chief Complaint: post op yokasta Pt evaluation today including: conversation w/ patient, conversation w/ family , physical exam, chart review, lab review, review of studies, review of inpatient medication list History of Present Illness Patient not feeling well post op lap yokasta. Has nausea and abdominal pain. No chest pain or SOB noted. Allergies Coded Allergies: Milk (Verified Allergy, Intermediate, UNKNOWN, 03/17/14) Sulfa Drugs (Verified Allergy, Intermediate, RASH FROM HEAD TO TOE, ) Latex (Verified Allergy, Mild, RASH, 03/17/14) Oxycodone (Verified Allergy, Mild, ITCHING, 03/17/14) Shellfish (Verified Allergy, Mild, `, 03/17/14) Soap (Verified Allergy, Mild, DETERGENTS-RASH, 03/17/14) Adhesives (Verified Allergy, Unknown, LOCAL SKIN IRRITATION, 03/17/14) CI Pigment Blue 63 (Verified Allergy, Unknown, RESTLESS LEGS, 03/17/14) Diphenhydramine (Verified Allergy, Unknown, _, 06/09/12) Hydrochlorothiazide (Verified Allergy, Unknown, RENAL COMPLICATIONS, HIVES ?, 03/17/14) Ibuprofen (Verified Allergy, Unknown, RESTLESS LEGS,RASH?, 03/17/14) Indigotindisulfonate (Verified Allergy, Unknown, RESTLESS LEGS,RASH, ) Ciprofloxacin (Verified Adverse Reaction, Intermediate, SEVERE NAUSEA AND VOMITING, 03/17/14) Nitrofurantoin (Verified Adverse Reaction, Intermediate, SEVERE NAUSEA AND VOMITING, 03/17/14) Lactose Intolerance (Verified Adverse Reaction, Unknown, GI SYMPTOMS, 03/17) Social History Smoking Status: Never Smoker Hx Alcohol Use - Type And Amou: No Hx Substance Use - Type And Am: No Problem List Medical Problems: (1) Acute cholecystitis Status: Acute (2) Gallstone pancreatitis Status: Acute Review of Systems Respiratory: No cough, No shortness of breath, No dyspnea at rest Cardiac: No chest pain, No orthopnea, No PND, No edema, No palpitations Physical Exam Vital Signs Last Vital Signs Documentation Date Time Temp Pulse Resp B/P (MAP) Pulse Ox O2 Delivery O2 Flow Rate FiO2 11/29/17 14:45 69 18 165/77 (106) 96 2.0 11/29/17 14:30 36.9 Nasal Cannula Physical Exam Constitutional: General Apperance: well-nourished Level of Distress: mild distress Head: normocephalic Eyes: Pupils: PERRLA Neck: supple Lungs: Auscultation: no wheezing, no rales/crackles, deminished air movement Cardiovascular: Heart Auscultation: RRR, normal S1, normal S2, no murmurs Extremities: no edema (SCDs in place) Assessment and Plan Assessment and Plan ASSESSMENT: 82-year-old female 1. Post op lap yokasta. +Nausea and abdominal pain noted. 2. History of moderate CAD per cath in 2010. Medical management recommended at that time. - clinically stable without angina. - dobutamine stress ECHO negative for inducible ischemia June, -Stable EKG on admission with chronic left bundle branch block. 3. HTN -resume home meds when tolerating PO 3. Chronic compensated diastolic heart failure. -Furosemide on hold -Gentle hydration only. Monitor fluid status and symptoms closely. 5. 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 Stable findings. 6. Chronic LE edema secondary to venous insufficiency -controlled 7. Dyslipidemia -atorvastatin on hold due to elevated LFTs. PLAN: Resume home cardiac meds when tolerating PO meds, including ASA, beta mohinder, statin (when LFT's at baseline). Monitor fluid status. Will follow. Case discussed with Dr. Webb CARDIOLOGY ATTENDING ADDENDUM: The patient was seen and personally examined. Agree with Nancy Ross PA-C's findings and plans as documented above. The patient is doing well postop. Laboratory Results Last 24 Hours Test 11/29/17 05:38 White Blood Count 10.19 K/uL Red Blood Count 3.97 M/uL Hemoglobin 12.5 g/dL Hematocrit 37.0 % Mean Corpuscular Volume 93.2 fL Mean Corpuscular Hemoglobin 31.5 pg Mean Corpuscular Hemoglobin Concent 33.8 g/dl RDW Standard Deviation 53.3 fL RDW Coefficient of Variation 15.7 % Platelet Count 224 K/uL Mean Platelet Volume 9.7 fL Sodium Level 136 mmol/L Potassium Level 4.1 mmol/L Chloride Level 104 mmol/L Carbon Dioxide Level 22 mmol/L Anion Gap 10.0 mmol/L Blood Urea Nitrogen 8 mg/dl Creatinine 0.86 mg/dl Est Creatinine Clear Calc Drug Dose 47.0 ml/min Estimated GFR () 72.9 Estimated GFR (Non- 62.9 BUN/Creatinine Ratio 8.7 Random Glucose 69 mg/dl Calcium Level 8.5 mg/dl Total Bilirubin 0.7 mg/dl Direct Bilirubin 0.2 mg/dl Aspartate Amino Transf (AST/SGOT) 61 U/L Alanine Aminotransferase (ALT/SGPT) 73 U/L Alkaline Phosphatase 109 U/L Total Protein 6.3 gm/dl Albumin 2.8 gm/dl Globulin 3.5 gm/dl Albumin/Globulin Ratio 0.8 Lipase 491 U/L
--- NOTE | 2017-11-29 15:19 | Anesthesiology Progress Note ---
Anesthesia Post Op Note Date & Time Nov 29, 2017 at 15:19 Vital Signs Pain Intensity: 2 Vital Signs Past 12 Hours Date Time Temp Pulse Resp B/P (MAP) Pulse Ox O2 Delivery O2 Flow Rate FiO2 11/29/17 14:45 69 18 165/77 (106) 96 2.0 11/29/17 14:30 36.9 73 18 137/71 (93) 93 Nasal Cannula 4.0 11/29/17 14:00 37.1 70 18 130/63 93 Nasal Cannula 4 11/29/17 13:50 69 16 133/63 92 Nasal Cannula 3 11/29/17 13:40 73 16 147/64 91 Nasal Cannula 3 11/29/17 13:30 78 16 157/79 94 Oxymask 10 11/29/17 13:20 95 16 155/73 95 Oxymask 10 11/29/17 13:13 37. 95 16 164/77 95 Oxymask 10 11/29/17 11:55 97 Room Air 11/29/17 11:07 37.1 89 18 165/78 (107) 97 Room Air 11/29/17 10:12 37.4 103 18 158/86 (110) 93 Room Air 11/29/17 08:00 95 Room Air 11/29/17 07:28 37.1 103 18 163/83 (109) 95 Room Air 11/29/17 05:56 89 166/82 11/29/17 04:31 37.1 89 20 166/82 (110) 94 Room Air 11/29/17 04:00 Room Air Notes Mental Status: alert / awake / arousable, participated in evaluation Pt Amnestic to Procedure: Yes Nausea / Vomiting: adequately controlled Pain: adequately controlled Airway Patency, RR, SpO2: stable & adequate BP & HR: stable & adequate Hydration State: stable & adequate Anesthetic Complications: no major complications apparent
[2017-11-29] MEDS: HYDROmorphone INJ 2 MG/ML SYR/VIAL IV PRN ×2 (16:10→20:42)
--- NOTE | 2017-11-29 18:55 | Progress Note ---
Internal Med Progress Note Date of Service: Nov 29, 2017. Provider Documentation: SUBJECTIVE: s/p lap yokasta today mild discomfort at surgery site no nausea on clears no sob afebrile OBJECTIVE: Vital Signs-as noted below Exam: General-alert and oriented. Not in distress ENT-normal hearing. Neck-No neck masses Lungs-CTA b/l no wheezing or crackles Heart-S1 and S2 heard regular rate and rhythm no murmurs Abdomen-soft Bowels sounds sluggish s/p lap yokasta dressing and drain intact Extremities-trace edema no erythema Neuro-alert and oriented moves extremities Lab data as noted below. ASSESSMENT & PLAN: 1. Acute cholecystitis with gallstones. on ct scan, mrcp and US npo, iv abx, iv fluids s/p lap yokasta today started on full liquid diet 2. Acute gall stone pancreatitis on aggressive fluids, npo, iv pain meds and antiemetics. s/p cholecystectomy today 3. Mild asthma, seems to be controlled at this time. will monitor. 4. Hypertension. po meds on hold. on iv Lopressor.if still elevated iv hydralazine prn. 5. Hypothyroidism. Synthroid IV. 6. Hyperlipidemia. Holding statin right now. 7. Hiatal hernia with esophageal reflux. Protonix IV. 8. Chronic diastolic CHF.On Lasix prn at home which is held. monitor for volume overload as patient on fluids for pancreatitis.cardiology on board. 9. Deep venous thrombosis prophylaxis with subcutaneous heparin. 10. Code status, full code. DVT PROPHYLAXIS hep sub q DISPOSITION to be determined monitor in tele Vital Signs: Date Time Temp Pulse Resp B/P (MAP) Pulse Ox O2 Delivery O2 Flow Rate FiO2 11/29/17 18:00 76 154/74 (100) 11/29/17 17:11 76 154/74 11/29/17 16:00 Nasal Cannula 3.0 11/29/17 15:26 36.7 68 19 181/69 (106) 97 Nasal Cannula 4.0 11/29/17 14:45 69 18 165/77 (106) 96 2.0 11/29/17 14:30 36.9 73 18 137/71 (93) 93 Nasal Cannula 4.0 11/29/17 14:00 37.1 70 18 130/63 93 Nasal Cannula 4 11/29/17 13:50 69 16 133/63 92 Nasal Cannula 3 11/29/17 13:40 73 16 147/64 91 Nasal Cannula 3 11/29/17 13:30 78 16 157/79 94 Oxymask 10 11/29/17 13:20 95 16 155/73 95 Oxymask 10 11/29/17 13:13 37. 95 16 164/77 95 Oxymask 10 11/29/17 11:55 97 Room Air 11/29/17 11:07 37.1 89 18 165/78 (107) 97 Room Air 11/29/17 10:12 37.4 103 18 158/86 (110) 93 Room Air 11/29/17 08:00 95 Room Air 11/29/17 07:28 37.1 103 18 163/83 (109) 95 Room Air 11/29/17 05:56 89 166/82 11/29/17 04:31 37.1 89 20 166/82 (110) 94 Room Air 11/29/17 04:00 Room Air 11/29/17 00:00 Room Air 11/28/17 23:34 75 156/76 11/28/17 23:29 36.8 96 18 156/83 (107) 95 Room Air 11/28/17 20:19 Room Air 11/28/17 19:43 36.6 75 20 156/76 (102) 95 Room Air Lab Results: Results Past 24 Hours Test 11/29/17 05:38 11/29/17 16:44 Range/Units White Blood Count 10.19 4.8-10.8 K/uL Red Blood Count 3.97 4.2-5.4 M/uL Hemoglobin 12.5 12.0-16.0 g/dL Hematocrit 37.0 37-47 % Mean Corpuscular Volume 93.2 80-100 fL Mean Corpuscular Hemoglobin 31.5 25-34 pg Mean Corpuscular Hemoglobin Concent 33.8 32-36 g/dl RDW Standard Deviation 53.3 36.4-46.3 fL RDW Coefficient of Variation 15.7 11.5-14.5 % Platelet Count 224 130-400 K/uL Mean Platelet Volume 9.7 7.4-10.4 fL Sodium Level 136 136-145 mmol/L Potassium Level 4.1 3.5-5.1 mmol/L Chloride Level 104 98-107 mmol/L Carbon Dioxide Level 22 21-32 mmol/L Anion Gap 10.0 3-11 mmol/L Blood Urea Nitrogen 8 7-18 mg/dl Creatinine 0.86 0.60-1.20 mg/dl Est Creatinine Clear Calc Drug Dose 47.0 ml/min Estimated GFR () 72.9 Estimated GFR (Non- 62.9 BUN/Creatinine Ratio 8.7 10-20 Random Glucose 69 70-99 mg/dl Calcium Level 8.5 8.5-10.1 mg/dl Total Bilirubin 0.7 0.2-1 mg/dl Direct Bilirubin 0.2 0-0.2 mg/dl Aspartate Amino Transf (AST/SGOT) 61 15-37 U/L Alanine Aminotransferase (ALT/SGPT) 73 12-78 U/L Alkaline Phosphatase 109 45-117 U/L Total Protein 6.3 6.4-8.2 gm/dl Albumin 2.8 3.4-5.0 gm/dl Globulin 3.5 2.5-4.0 gm/dl Albumin/Globulin Ratio 0.8 0.9-2 Lipase 491 73-393 U/L Bedside Glucose 126 70-90 mg/dl
[2017-11-29] MEDS: ZOLPIDEM TARTRATE 5 MG TAB PO PRN (20:43)
[2017-11-29] MEDS: ONDANSETRON INJ 2 MG/ML 2 ML VIAL IV PRN (20:47)
[2017-11-29] MEDS: SIMETHICONE 80 MG CHEW PO PRN (22:06)
[2017-11-30] VITALS (7 sets, daily range): BP systolic 114–166; BP diastolic 74–81; PULSE 54–64; TEMP 36.5–36.8; O2SAT 94–96
[2017-11-30] MEDS: METOPROLOL TARTRATE 1 MG/ML VIAL IV. SCH ×2 (00:17→06:13)
[2017-11-30] MEDS: LACTATED RINGER'S 1000ML 1,000 ML IV SCH ×2 (01:46→15:16)
[2017-11-30] MEDS: CEFOXITIN IV 1,000 MG in DEXTROSE 5% 50ML 50 ML IV SCH ×4 (01:50→20:43)
[2017-11-30] MEDS: HYDROmorphone INJ 2 MG/ML SYR/VIAL IV PRN ×4 (01:51→20:44)
[2017-11-30] MEDS: SIMETHICONE 80 MG CHEW PO PRN (04:10)
[2017-11-30] MEDS ORDERED: CEFAZOLIN SOD 2000MG/15 ML IV PUSH IV ONE (06:00)
[2017-11-30 06:04] LABS: BASO % 0.1 %; BASO ABS # 0.01 K/uL (0-0.2); HEMATOCRIT 34.2 % (37-47); HEMOGLOBIN 11.8 g/dL (12.0-16.0); IG# 0.02 K/uL (0.00-0.02); LYMPH % 9.4 %; LYMPH ABS # 1.13 K/uL (1.2-3.4); MEAN CELL VOLUME 92.9 fL (80-100); MEAN CORPUSCULAR HEMOGLOBIN 32.1 pg (25-34); MEAN CORPUSCULAR HGB CONC 34.5 g/dl (32-36); MEAN PLATELET VOLUME 9.8 fL (7.4-10.4); MONO % 9.1 %; MONO ABS # 1.09 K/uL (0.11-0.59); NEUT % 81.2 %; NEUT ABS # 9.75 K/uL (1.4-6.5); PLATELET COUNT 217 K/uL (130-400); RED CELL DISTRIBUTION WIDTH CV 15.8 % (11.5-14.5); RED CELL DISTRIBUTION WIDTH SD 53.1 fL (36.4-46.3)
[2017-11-30 06:34] LABS: ALBUMIN 2.7 gm/dl (3.4-5.0); CALCIUM 8.5 mg/dl (8.5-10.1); CREATININE 0.92 mg/dl (0.60-1.20); POTASSIUM 4.2 mmol/L (3.5-5.1)
[2017-11-30 06:36] LABS: TOTAL PROTEIN 6.4 gm/dl (6.4-8.2)
[2017-11-30] MEDS: PANTOprazole INJ 40 MG in SYRINGE 0 ML IV SCH (08:08)
[2017-11-30] MEDS: ONDANSETRON INJ 2 MG/ML 2 ML VIAL IV PRN ×2 (08:08→23:01)
[2017-11-30] MEDS: LEVOTHYROXINE SODIUM INJ 25 MCG in SYRINGE 0 ML IV SCH (09:24)
[2017-11-30] MEDS: FLUTICASONE/SALMETEROL (ADVAIR) 500/50 INH 14 PUFF INH SCH ×2 (09:24→20:45)
--- NOTE | 2017-11-30 10:33 | Progress Note ---
Progress Note Date of Service Nov 30, 2017. Progress Note Pt was seen and evaluated, chart reviewed. No acute events noted. Pt is s/p lap cholecystectomy. Is having some mild abd discomfort and gas paints this AM. Denies nausea, vomiting. Lipase 51,602 --> 7064 --> 491 TB 0.9 --> 0.5 --> 0.7 --> 0.5 AST 179 --> 112 --> 61 --> 38 ALT 108 --> 103 --> 73 --> 57 ALKP 142 --> 115 --> 109 --> 93 MRCP 11/27/17: Mildly distended gallbladder with a small amount of pericholecystic fluid ayala small gallstone. This is concerning for acute cholecystitis. Clinicalcorrelation recommended. Mild intra and extra hepatic bile duct dilatation. No evidence for a commonbile duct stone.The main pancreatic duct is normal in course and caliber.Mild peripancreatic edema suggestive of acute pancreatitis. CT ABD/Pelvis 11/27/17: Cholelithiasis with evidence of severe acute cholecystitis. Surgical consultation is advised. There is mild intra and extrahepatic biliary ductal dilatation. CBD 11 82 year old female with acute onset epigastric RUQ pain following a month of intermittent RUQ pain, imaging concerning for acute cholecystitis, gallstone pancreatitis. She has some elevation of her transaminases w/ normal TB and ALKP , CBD 11mm. Concern for CBD stone. MRCP was negative, LFTs have nearly normalized. She is now s/o cholecystectomy w/ normal liver function - Biliary dilation - MRCP negative - LFTs normalized - No role for ERCP - GI to sign off, please call with any questions or concerns.
--- NOTE | 2017-11-30 10:34 | Cardiology Follow-Up ---
Subjective General Date of Service: Nov 30, 2017. Chief Complaint: post op yokasta Pt evaluation today including: conversation w/ family, physical exam, chart review, lab review, review of studies, review of inpatient medication list History of Present Illness Patient feeling ok. Had some nausea this morning. Pain controlled. Ate small amount of breakfast Allergies Coded Allergies: Milk (Verified Allergy, Intermediate, UNKNOWN, 03/17/14) Sulfa Drugs (Verified Allergy, Intermediate, RASH FROM HEAD TO TOE, ) Latex (Verified Allergy, Mild, RASH, 03/17/14) Oxycodone (Verified Allergy, Mild, ITCHING, 03/17/14) Shellfish (Verified Allergy, Mild, `, 03/17/14) Soap (Verified Allergy, Mild, DETERGENTS-RASH, 03/17/14) Adhesives (Verified Allergy, Unknown, LOCAL SKIN IRRITATION, 03/17/14) CI Pigment Blue 63 (Verified Allergy, Unknown, RESTLESS LEGS, 03/17/14) Diphenhydramine (Verified Allergy, Unknown, _, 06/09/12) Hydrochlorothiazide (Verified Allergy, Unknown, RENAL COMPLICATIONS, HIVES ?, 03/17/14) Ibuprofen (Verified Allergy, Unknown, RESTLESS LEGS,RASH?, 03/17/14) Indigotindisulfonate (Verified Allergy, Unknown, RESTLESS LEGS,RASH, ) Ciprofloxacin (Verified Adverse Reaction, Intermediate, SEVERE NAUSEA AND VOMITING, 03/17/14) Nitrofurantoin (Verified Adverse Reaction, Intermediate, SEVERE NAUSEA AND VOMITING, 03/17/14) Lactose Intolerance (Verified Adverse Reaction, Unknown, GI SYMPTOMS, 03/17) Social History Smoking Status: Never Smoker Hx Alcohol Use - Type And Amou: No Hx Substance Use - Type And Am: No Problem List Medical Problems: (1) Acute cholecystitis Status: Acute (2) Gallstone pancreatitis Status: Acute Review of Systems Respiratory: No cough, No wheezing, No shortness of breath, No dyspnea at rest , No hemoptysis Cardiac: No chest pain, No orthopnea, No PND, No edema, No palpitations Physical Exam Vital Signs Last Vital Signs Documentation Date Time Temp Pulse Resp B/P (MAP) Pulse Ox O2 Delivery O2 Flow Rate FiO2 11/30/17 07:39 36.6 62 18 150/81 (104) 95 2.0 11/30/17 04:12 Nasal Cannula Physical Exam Constitutional: General Apperance: well-nourished Level of Distress: NAD Head: normocephalic Eyes: Pupils: PERRLA Neck: supple Lungs: Auscultation: no wheezing, no rales/crackles, deminished air movement Cardiovascular: Heart Auscultation: RRR, normal S1, normal S2, no murmurs Extremities: no edema Assessment and Plan Assessment and Plan ASSESSMENT and PLAN: 82-year-old female 1. Post op day 1 lap yokasta. 2. History of moderate CAD per cath in 2010. Medical management recommended at that time. - clinically stable without angina. - dobutamine stress ECHO negative for inducible ischemia June, -Stable EKG on admission with chronic left bundle branch block. -Resume ASA 81 mg when ok from surgical perspective. 3. HTN -elevated today -resume home dose metoprolol succinate 50 mg daily today. 3. Chronic compensated diastolic heart failure. -Furosemide on hold -Gentle hydration only. Monitor fluid status and symptoms closely. 5. 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 Stable findings. 6. Chronic LE edema secondary to venous insufficiency -controlled 7. Dyslipidemia -atorvastatin on hold due to elevated LFTs. Case to be discussed with Dr. Webb CARDIOLOGY ATTENDING ADDENDUM: The patient was seen and personally examined. Agree with Nancy Ross PA-C's findings and plans as documented above. Laboratory Results Last 24 Hours Test 11/29/17 16:44 11/30/17 05:38 Bedside Glucose 126 mg/dl White Blood Count 12.00 K/uL Red Blood Count 3.68 M/uL Hemoglobin 11.8 g/dL Hematocrit 34.2 % Mean Corpuscular Volume 92.9 fL Mean Corpuscular Hemoglobin 32.1 pg Mean Corpuscular Hemoglobin Concent 34.5 g/dl Platelet Count 217 K/uL Mean Platelet Volume 9.8 fL Neutrophils (%) (Auto) 81.2 % Lymphocytes (%) (Auto) 9.4 % Monocytes (%) (Auto) 9.1 % Eosinophils (%) (Auto) 0.0 % Basophils (%) (Auto) 0.1 % Neutrophils # (Auto) 9.75 K/uL Lymphocytes # (Auto) 1.13 K/uL Monocytes # (Auto) 1.09 K/uL Eosinophils # (Auto) 0.00 K/uL Basophils # (Auto) 0.01 K/uL RDW Standard Deviation 53.1 fL RDW Coefficient of Variation 15.8 % Immature Granulocyte % (Auto) 0.2 % Immature Granulocyte # (Auto) 0.02 K/uL Sodium Level 133 mmol/L Potassium Level 4.2 mmol/L Chloride Level 102 mmol/L Carbon Dioxide Level 23 mmol/L Anion Gap 8.0 mmol/L Blood Urea Nitrogen 10 mg/dl Creatinine 0.92 mg/dl Est Creatinine Clear Calc Drug Dose 44.1 ml/min Estimated GFR () 67.2 Estimated GFR (Non- 58.0 BUN/Creatinine Ratio 10.8 Random Glucose 114 mg/dl Calcium Level 8.5 mg/dl Total Bilirubin 0.5 mg/dl Aspartate Amino Transf (AST/SGOT) 48 U/L Alanine Aminotransferase (ALT/SGPT) 57 U/L Alkaline Phosphatase 93 U/L Total Protein 6.4 gm/dl Albumin 2.7 gm/dl Globulin 3.7 gm/dl Albumin/Globulin Ratio 0.7 Lipase 141 U/L
[2017-11-30] MEDS ORDERED: OXYCODONE/ACETAMINOPHEN 5-325 TAB PO PRN ×2 (10:45)
--- NOTE | 2017-11-30 10:52 | Surgery Progress Note ---
Surgery Progress Note Date of Service Nov 30, 2017. Subjective Post OP Day: 1 not feeling well had a bad night, horrible gas pains last night +nausea and abdominal pain +dizziness yesterday but nothing today, no chest pain or shortness of breath. Passing small amount of flatus, no bowel movement no vomiting not taking much full liquids Objective Vital Signs: Date Time Temp Pulse Resp B/P (MAP) Pulse Ox O2 Delivery O2 Flow Rate FiO2 11/30/17 07:39 36.6 62 18 150/81 (104) 95 2.0 11/30/17 06:13 61 11/30/17 04:12 36.8 61 21 166/77 (106) 96 Nasal Cannula 2.0 11/30/17 04:00 Nasal Cannula 2.0 11/30/17 00:17 63 145/75 11/29/17 23:59 Nasal Cannula 2.0 11/29/17 23:52 36.6 63 18 145/75 (98) 95 Nasal Cannula 2.0 11/29/17 20:00 Nasal Cannula 2.0 11/29/17 19:34 36.7 66 18 152/70 (97) 93 Nasal Cannula 2.0 11/29/17 18:00 76 154/74 (100) 11/29/17 17:11 76 154/74 11/29/17 16:00 Nasal Cannula 3.0 11/29/17 15:26 36.7 68 19 181/69 (106) 97 Nasal Cannula 4.0 11/29/17 14:45 69 18 165/77 (106) 96 2.0 11/29/17 14:30 36.9 73 18 137/71 (93) 93 Nasal Cannula 4.0 11/29/17 14:00 37.1 70 18 130/63 93 Nasal Cannula 4 11/29/17 13:50 69 16 133/63 92 Nasal Cannula 3 11/29/17 13:40 73 16 147/64 91 Nasal Cannula 3 11/29/17 13:30 78 16 157/79 94 Oxymask 10 11/29/17 13:20 95 16 155/73 95 Oxymask 10 11/29/17 13:13 37. 95 16 164/77 95 Oxymask 10 11/29/17 11:55 97 Room Air 11/29/17 11:07 37.1 89 18 165/78 (107) 97 Room Air Physical Exam: BRITNI drainage (serous) General Appearance: WD/WN, no apparent distress, + pertinent finding (sleepy) Head: normocephalic, atraumatic Neck: trachea midline Respiratory/Chest: no respiratory distress, no accessory muscle use Abdomen: non distended, soft, + tenderness (appropriate post op) Incision(s): clean, dry, intact (dressings clean/dry, incisions not inspected) Laboratory Results: Results Past 24 Hours Test 11/29/17 16:44 11/30/17 05:38 Range/Units Bedside Glucose 126 70-90 mg/dl White Blood Count 12.00 4.8-10.8 K/uL Red Blood Count 3.68 4.2-5.4 M/uL Hemoglobin 11.8 12.0-16.0 g/dL Hematocrit 34.2 37-47 % Mean Corpuscular Volume 92.9 80-100 fL Mean Corpuscular Hemoglobin 32.1 25-34 pg Mean Corpuscular Hemoglobin Concent 34.5 32-36 g/dl Platelet Count 217 130-400 K/uL Mean Platelet Volume 9.8 7.4-10.4 fL Neutrophils (%) (Auto) 81.2 % Lymphocytes (%) (Auto) 9.4 % Monocytes (%) (Auto) 9.1 % Eosinophils (%) (Auto) 0.0 % Basophils (%) (Auto) 0.1 % Neutrophils # (Auto) 9.75 1.4-6.5 K/uL Lymphocytes # (Auto) 1.13 1.2-3.4 K/uL Monocytes # (Auto) 1.09 0.11-0.59 K/uL Eosinophils # (Auto) 0.00 0-0.5 K/uL Basophils # (Auto) 0.01 0-0.2 K/uL RDW Standard Deviation 53.1 36.4-46.3 fL RDW Coefficient of Variation 15.8 11.5-14.5 % Immature Granulocyte % (Auto) 0.2 % Immature Granulocyte # (Auto) 0.02 0.00-0.02 K/uL Sodium Level 133 136-145 mmol/L Potassium Level 4.2 3.5-5.1 mmol/L Chloride Level 102 98-107 mmol/L Carbon Dioxide Level 23 21-32 mmol/L Anion Gap 8.0 3-11 mmol/L Blood Urea Nitrogen 10 7-18 mg/dl Creatinine 0.92 0.60-1.20 mg/dl Est Creatinine Clear Calc Drug Dose 44.1 ml/min Estimated GFR () 67.2 Estimated GFR (Non- 58.0 BUN/Creatinine Ratio 10.8 10-20 Random Glucose 114 70-99 mg/dl Calcium Level 8.5 8.5-10.1 mg/dl Total Bilirubin 0.5 0.2-1 mg/dl Aspartate Amino Transf (AST/SGOT) 48 15-37 U/L Alanine Aminotransferase (ALT/SGPT) 57 12-78 U/L Alkaline Phosphatase 93 45-117 U/L Total Protein 6.4 6.4-8.2 gm/dl Albumin 2.7 3.4-5.0 gm/dl Globulin 3.7 2.5-4.0 gm/dl Albumin/Globulin Ratio 0.7 0.9-2 Lipase 141 73-393 U/L Assessment & Plan POD # 1 s/p laparoscopic cholecystectomy -vitals signs stable, afebrile post op - mild leukocytosis of 12k most likely post op - improvement of LFTS and lipase wnl - +nausea, abdominal pain and abdominal gas pains - britni serous output Plan: Will add PO Percocet and PO Tylenol as needed for pain, Dilaudid may be causing nausea and patient very sleepy on encounter this am Decrease IV fluids to 75 mls/hr Continue full liquids for now until nausea improves Continue IV Zofran prn nausea Continue britni drain to bulb suction check blood sugar now to ensure no hypoglycemia (yesterday am blood glucose 69) Continue scds, may resume Heparin 5000 units sq q 8 hours, may resume home aspirin encourage ambulation and OOB to chair PT/OT Continue current medical management Continue IV Cefoxitin for UTI repeat am labs Dr. Fontenot has seen and examined patient, agrees with above.
[2017-11-30] MEDS ORDERED: METOPROLOL SUCC 50MG EXT REL TAB PO ONE (12:00)
[2017-11-30] MEDS ORDERED: BACLOFEN 10 MG TAB PO ONE (12:15)
[2017-11-30] MEDS: HEPARIN SOD 5000 UNIT/0.5 ML CARP SQ SCH ×2 (13:18→20:47)
--- NOTE | 2017-11-30 14:12 | Anesthesiology Progress Note ---
Anesthesia Post Op Note Date & Time Nov 30, 2017 at 14:11 Vital Signs Pain Intensity: 5.0 Vital Signs Past 12 Hours Date Time Temp Pulse Resp B/P (MAP) Pulse Ox O2 Delivery O2 Flow Rate FiO2 11/30/17 12:00 Nasal Cannula 2.0 11/30/17 11:35 36.5 63 18 149/81 (103) 95 Room Air 11/30/17 08:00 Nasal Cannula 2.0 11/30/17 07:39 36.6 62 18 150/81 (104) 95 2.0 11/30/17 06:13 61 11/30/17 04:12 36.8 61 21 166/77 (106) 96 Nasal Cannula 2.0 11/30/17 04:00 Nasal Cannula 2.0 Notes Mental Status: alert / awake / arousable, participated in evaluation Pt Amnestic to Procedure: Yes Nausea / Vomiting: adequately controlled Pain: adequately controlled Airway Patency, RR, SpO2: stable & adequate BP & HR: stable & adequate Hydration State: stable & adequate Anesthetic Complications: no major complications apparent
[2017-11-30] MEDS: TRAMADOL HCL 50 MG TAB PO PRN (15:09)
--- NOTE | 2017-11-30 17:57 | Progress Note ---
Internal Med Progress Note Date of Service: Nov 30, 2017. Provider Documentation: SUBJECTIVE: s/p lap yokasta yesterday having hiccups, lot of gas and pain at surgery site afebrile was able to eat some liquid diet for lunch denies chest pain or sob ambulated some OBJECTIVE: Vital Signs-as noted below Exam: General-alert and oriented. Not in distress ENT-normal hearing. Neck-No neck masses Lungs-CTA b/l no wheezing or crackles Heart-S1 and S2 heard regular rate and rhythm no murmurs Abdomen-soft Bowels sounds sluggish s/p lap yokasta dressing and drain intact Extremities-trace edema no erythema Neuro-alert and oriented moves extremities Lab data as noted below. ASSESSMENT & PLAN: 1. Acute cholecystitis with gallstones. on ct scan, mrcp and US npo, iv abx, iv fluids s/p lap yokasta 11/29/17 started on full liquid diet 2. Acute gall stone pancreatitis on aggressive fluids, npo, iv pain meds and antiemetics. s/p cholecystectomy 07/08 lipase normalized on full liquid diet. 3. hiccups a dose of baclofen given resolved 3. Mild asthma, seems to be controlled at this time. will monitor. 4. Hypertension. restarted Toprol xl.telmisartan. iv hydralazine prn. 5. Hypothyroidism. Synthroid 6. Hyperlipidemia. Holding statin right now. 7. Hiatal hernia with esophageal reflux. Protonix IV. 8. Chronic diastolic CHF.On Lasix prn at home which is held. monitor for volume overload as patient on fluids for pancreatitis. stopped fluids today.cardiology on board. 9. Deep venous thrombosis prophylaxis with subcutaneous heparin. 10. Code status, full code. DVT PROPHYLAXIS hep sub q DISPOSITION transferred to medical floor pt/o Vital Signs: Date Time Temp Pulse Resp B/P (MAP) Pulse Ox O2 Delivery O2 Flow Rate FiO2 11/30/17 16:00 Nasal Cannula 2.0 11/30/17 15:46 36.8 54 18 114/77 (89) 95 Room Air 11/30/17 12:00 Nasal Cannula 2.0 11/30/17 11:35 36.5 63 18 149/81 (103) 95 Room Air 11/30/17 08:00 Nasal Cannula 2.0 11/30/17 07:39 36.6 62 18 150/81 (104) 95 2.0 11/30/17 06:13 61 11/30/17 04:12 36.8 61 21 166/77 (106) 96 Nasal Cannula 2.0 11/30/17 04:00 Nasal Cannula 2.0 11/30/17 00:17 63 145/75 11/29/17 23:59 Nasal Cannula 2.0 11/29/17 23:52 36.6 63 18 145/75 (98) 95 Nasal Cannula 2.0 11/29/17 20:00 Nasal Cannula 2.0 11/29/17 19:34 36.7 66 18 152/70 (97) 93 Nasal Cannula 2.0 11/29/17 18:00 76 154/74 (100) Lab Results: Results Past 24 Hours Test 11/30/17 05:38 Range/Units White Blood Count 12.00 4.8-10.8 K/uL Red Blood Count 3.68 4.2-5.4 M/uL Hemoglobin 11.8 12.0-16.0 g/dL Hematocrit 34.2 37-47 % Mean Corpuscular Volume 92.9 80-100 fL Mean Corpuscular Hemoglobin 32.1 25-34 pg Mean Corpuscular Hemoglobin Concent 34.5 32-36 g/dl Platelet Count 217 130-400 K/uL Mean Platelet Volume 9.8 7.4-10.4 fL Neutrophils (%) (Auto) 81.2 % Lymphocytes (%) (Auto) 9.4 % Monocytes (%) (Auto) 9.1 % Eosinophils (%) (Auto) 0.0 % Basophils (%) (Auto) 0.1 % Neutrophils # (Auto) 9.75 1.4-6.5 K/uL Lymphocytes # (Auto) 1.13 1.2-3.4 K/uL Monocytes # (Auto) 1.09 0.11-0.59 K/uL Eosinophils # (Auto) 0.00 0-0.5 K/uL Basophils # (Auto) 0.01 0-0.2 K/uL RDW Standard Deviation 53.1 36.4-46.3 fL RDW Coefficient of Variation 15.8 11.5-14.5 % Immature Granulocyte % (Auto) 0.2 % Immature Granulocyte # (Auto) 0.02 0.00-0.02 K/uL Sodium Level 133 136-145 mmol/L Potassium Level 4.2 3.5-5.1 mmol/L Chloride Level 102 98-107 mmol/L Carbon Dioxide Level 23 21-32 mmol/L Anion Gap 8.0 3-11 mmol/L Blood Urea Nitrogen 10 7-18 mg/dl Creatinine 0.92 0.60-1.20 mg/dl Est Creatinine Clear Calc Drug Dose 44.1 ml/min Estimated GFR () 67.2 Estimated GFR (Non- 58.0 BUN/Creatinine Ratio 10.8 10-20 Random Glucose 114 70-99 mg/dl Calcium Level 8.5 8.5-10.1 mg/dl Total Bilirubin 0.5 0.2-1 mg/dl Aspartate Amino Transf (AST/SGOT) 48 15-37 U/L Alanine Aminotransferase (ALT/SGPT) 57 12-78 U/L Alkaline Phosphatase 93 45-117 U/L Total Protein 6.4 6.4-8.2 gm/dl Albumin 2.7 3.4-5.0 gm/dl Globulin 3.7 2.5-4.0 gm/dl Albumin/Globulin Ratio 0.7 0.9-2 Lipase 141 73-393 U/L
[2017-11-30] MEDS: MONTELUKAST SOD 10 MG TAB PO SCH (20:46)
[2017-11-30] MEDS: GABAPENTIN 100 MG CAP PO SCH (20:46)
[2017-12-01] MEDS: CEFOXITIN IV 1,000 MG in DEXTROSE 5% 50ML 50 ML IV SCH ×2 (02:35→09:40)
[2017-12-01] MEDS: TRAMADOL HCL 50 MG TAB PO PRN (03:03)
[2017-12-01] MEDS: LEVOTHYROXINE 50 MCG TAB PO SCH (05:40)
[2017-12-01] MEDS: HEPARIN SOD 5000 UNIT/0.5 ML CARP SQ SCH ×3 (05:42→22:19)
[2017-12-01 06:59] LABS: HEMATOCRIT 34.6 % (37-47); HEMOGLOBIN 11.8 g/dL (12.0-16.0); MEAN CELL VOLUME 94.5 fL (80-100); MEAN CORPUSCULAR HEMOGLOBIN 32.2 pg (25-34); MEAN CORPUSCULAR HGB CONC 34.1 g/dl (32-36); PLATELET COUNT 220 K/uL (130-400); RED CELL DISTRIBUTION WIDTH CV 16.1 % (11.5-14.5); RED CELL DISTRIBUTION WIDTH SD 55.7 fL (36.4-46.3)
[2017-12-01 07:30] LABS: ALBUMIN 2.8 gm/dl (3.4-5.0); CALCIUM 8.2 mg/dl (8.5-10.1); CREATININE 0.98 mg/dl (0.60-1.20); POTASSIUM 3.9 mmol/L (3.5-5.1); TOTAL PROTEIN 6.4 gm/dl (6.4-8.2)
[2017-12-01 07:59] VITALS: BP 156/75; PULSE 60; TEMP 36.9; O2SAT 94
[2017-12-01] MEDS: GABAPENTIN 100 MG CAP PO SCH ×3 (09:00→21:06)
[2017-12-01] MEDS: TELMISARTAN 40 MG TAB PO SCH (09:00)
[2017-12-01] MEDS: ALLOPURINOL 300 MG TAB PO SCH (09:00)
[2017-12-01] MEDS: METOPROLOL SUCC 50MG EXT REL TAB PO SCH ×2 (09:00→16:42)
[2017-12-01] MEDS: FLUTICASONE/SALMETEROL (ADVAIR) 500/50 INH 14 PUFF INH SCH ×2 (09:40→21:06)
[2017-12-01] MEDS: ONDANSETRON INJ 2 MG/ML 2 ML VIAL IV PRN (09:40)
[2017-12-01] MEDS: HYDROmorphone INJ 2 MG/ML SYR/VIAL IV PRN (09:40)
[2017-12-01] MEDS ORDERED: ASPIRIN 81 MG ECTAB PO ONE (09:48)
[2017-12-01] MEDS ORDERED: HYDROCODONE/ACETAMIN 5/325MG TAB PO PRN ×2 (11:15)
[2017-12-01] MEDS ORDERED: ONDA4TAB10 SL (11:17)
--- NOTE | 2017-12-01 11:25 | Consultant Recommendations ---
Assistant Clinical Nurse Manager Recommendations Date of Service Dec 01, 2017. Assistant Clinical Nurse Manager Recommendations No heavy lifting over 20 pounds for 4 weeks No strenuous activity until cleared by surgeon No submerging incisions underwater for 2 weeks (no bathing, swimming, or hot tubs) No driving while taking narcotic pain medication or until you are pain free You may shower when you get home. Take off outer dressings and replace as needed. Leave steri strips on incisions for 7 days and then remove. They may fall off on their own that is okay. you do not need to replace them Walking and light activity is encouraged to prevent blood clots from forming You will be given narcotic pain medication as needed for moderate to severe pain. This medication may make you drowsy and can cause constipation. To combat constipation, you may take OTC stool softener such as Colace, gentle laxative, prune juice, and drink plenty of water You may take extra strength Tylenol as needed for mild pain Follow-up in surgical office in 1 week, please call office at [phone] to make an appointment
--- NOTE | 2017-12-01 11:29 | Surgery Progress Note ---
Surgery Progress Note Date of Service Dec 01, 2017. Subjective Post OP Day: 2 (s/p laparoscopic cholecystectomy) Feeling better than yesterday, nausea slightly better but still present Pain still present, tramadol did not help . Just received IV Dilaudid for pain Tolerated full liquids for breakfast Passing flatus no bowel movement, takes Linzess at home. Has not ambulated hallways Objective Vital Signs: Date Time Temp Pulse Resp B/P (MAP) Pulse Ox O2 Delivery O2 Flow Rate FiO2 12/01/17 08:16 Room Air 12/01/17 07:59 36.9 60 16 156/75 (102) 94 Room Air 11/30/17 23:50 Room Air 11/30/17 22:54 36.7 64 18 144/79 (100) 94 Room Air 11/30/17 18:04 36.5 60 18 136/74 (94) 94 Room Air 11/30/17 16:00 Nasal Cannula 2.0 11/30/17 15:46 36.8 54 18 114/77 (89) 95 Room Air 11/30/17 12:00 Nasal Cannula 2.0 11/30/17 11:35 36.5 63 18 149/81 (103) 95 Room Air Physical Exam: BRITNI drainage (serosanguineous) General Appearance: WD/WN, no apparent distress Head: normocephalic, atraumatic Neck: trachea midline Respiratory/Chest: no respiratory distress, no accessory muscle use Abdomen: non distended, soft, no organomegaly, no pulsatile mass, + tenderness (appropriate post op at incision sites) Incision(s): clean, dry, intact, no erythema, no drainage, drainage (from britni drain site, serous) Laboratory Results: Results Past 24 Hours Test 12/01/17 06:16 Range/Units White Blood Count 9.30 4.8-10.8 K/uL Red Blood Count 3.66 4.2-5.4 M/uL Hemoglobin 11.8 12.0-16.0 g/dL Hematocrit 34.6 37-47 % Mean Corpuscular Volume 94.5 80-100 fL Mean Corpuscular Hemoglobin 32.2 25-34 pg Mean Corpuscular Hemoglobin Concent 34.1 32-36 g/dl RDW Standard Deviation 55.7 36.4-46.3 fL RDW Coefficient of Variation 16.1 11.5-14.5 % Platelet Count 220 130-400 K/uL Mean Platelet Volume 10.0 7.4-10.4 fL Sodium Level 138 136-145 mmol/L Potassium Level 3.9 3.5-5.1 mmol/L Chloride Level 107 98-107 mmol/L Carbon Dioxide Level 25 21-32 mmol/L Anion Gap 6.0 3-11 mmol/L Blood Urea Nitrogen 10 7-18 mg/dl Creatinine 0.98 0.60-1.20 mg/dl Est Creatinine Clear Calc Drug Dose 42.5 ml/min Estimated GFR () 62.3 Estimated GFR (Non- 53.7 BUN/Creatinine Ratio 10.6 10-20 Random Glucose 90 70-99 mg/dl Calcium Level 8.2 8.5-10.1 mg/dl Total Bilirubin 0.5 0.2-1 mg/dl Aspartate Amino Transf (AST/SGOT) 74 15-37 U/L Alanine Aminotransferase (ALT/SGPT) 69 12-78 U/L Alkaline Phosphatase 96 45-117 U/L Total Protein 6.4 6.4-8.2 gm/dl Albumin 2.8 3.4-5.0 gm/dl Globulin 3.6 2.5-4.0 gm/dl Albumin/Globulin Ratio 0.8 0.9-2 Assessment & Plan POD # 2 s/p laparoscopic cholecystectomy -vitals signs stable, afebrile post op - Leukocytosis resolved - improvement of LFTS and lipase wnl - +nausea, abdominal pain , improving - britni serosanguineous output Plan: Will add PO [place] as needed for pain, Avoid Dilaudid if possible would like to see pain controlled with oral pain medications. advance diet as tolerated Continue IV Zofran prn nausea discontinued britni drain Start PO Linzess and One time Colace now Continue scds, may resume Heparin 5000 units sq q 8 hours, may resume home aspirin encourage ambulation and OOB to chair PT/OT Continue current medical management Continue treatment for UTI, switch to oral abx? From surgical standpoint may be discharged home when pain controlled with oral meds discharge instructions reviewed Rx for zofran written will await results to [place] to write pain Rx Dr. Fontenot has seen and examined patient, agrees with above.
[2017-12-01] MEDS ORDERED: DOCUSATE SODIUM 100 MG CAP PO ONE (11:30)
[2017-12-01] MEDS ORDERED: PROMETHAZINE HCL INJ 12.5 MG in SODIUM CHLORIDE 0.9% 50ML 50 ML IV PRN (13:00)
[2017-12-01] MEDS ORDERED: NURSING VERBAL MED ORDER ONE (13:00)
[2017-12-01 15:14] VITALS: BP 177/84; PULSE 77; TEMP 36.8; O2SAT 92
[2017-12-01] MEDS: PANTOprazole INJ 40 MG in SYRINGE 0 ML IV SCH (17:21)
[2017-12-01] MEDS ORDERED: ACETAMINOPHEN IV 100 ML IV PRN (17:45)
[2017-12-01 18:01] LABS: BASO % 0.4 %; BASO ABS # 0.04 K/uL (0-0.2); HEMOGLOBIN 12.5 g/dL (12.0-16.0); IG# 0.05 K/uL (0.00-0.02); LYMPH % 14.3 %; LYMPH ABS # 1.43 K/uL (1.2-3.4); MEAN CELL VOLUME 94.6 fL (80-100); MEAN CORPUSCULAR HGB CONC 33.8 g/dl (32-36); MEAN PLATELET VOLUME 9.7 fL (7.4-10.4); MONO % 15.2 %; MONO ABS # 1.52 K/uL (0.11-0.59); NEUT % 68.6 %; NEUT ABS # 6.84 K/uL (1.4-6.5); PLATELET COUNT 230 K/uL (130-400); RED CELL DISTRIBUTION WIDTH CV 16.4 % (11.5-14.5); RED CELL DISTRIBUTION WIDTH SD 56.9 fL (36.4-46.3); WHITE BLOOD COUNT 9.98 K/uL (4.8-10.8)
--- NOTE | 2017-12-01 18:20 | Progress Note ---
Internal Med Progress Note Date of Service: Dec 01, 2017. Provider Documentation: SUBJECTIVE: some what confused can tell her name and date of but cannot tell the date afebrile earlier was somewhat drowsy has some abdominal pain also received Phenergan for nausea hemodynamics stable OBJECTIVE: Vital Signs-as noted below Exam: General-alert and awake. confused ENT-normal hearing. Neck-No neck masses Lungs-CTA b/l no wheezing or crackles Heart-S1 and S2 heard regular rate and rhythm no murmurs Abdomen-soft Bowels sounds sluggish s/p lap yokasta dressing intact Extremities-trace edema no erythema Neuro-alert and awake. confused? moves extremities obeys simple commands Lab data as noted below. ASSESSMENT & PLAN: Encephalopathy mostly toxic from meds received iv Dilaudid, Phenergan and tramadol post op holding above pain meds f/u labs- seems ok hemodynamics stable currently close monitor Acute cholecystitis with gallstones. on ct scan, mrcp and US npo, iv abx, iv fluids s/p lap yokasta 11/29/17 started on full liquid diet f/u lipase Acute gall stone pancreatitis on aggressive fluids, npo, iv pain meds and antiemetics. s/p cholecystectomy 07/08 lipase normalized. will f/u repeat levels on full liquid diet. hiccups a dose of baclofen given resolved uti received iv cefoxitin on Keflex Mild asthma, seems to be controlled at this time. will monitor. Hypertension. restarted Toprol xl.telmisartan. iv hydralazine prn. Hypothyroidism. Synthroid Hyperlipidemia. Holding statin right now. Hiatal hernia with esophageal reflux. Protonix IV. Chronic diastolic CHF.On Lasix prn at home which is held. monitor for volume overload as patient on fluids for pancreatitis. stopped fluids .cardiology on board.stable Code status, full code. DVT PROPHYLAXIS hep sub q DISPOSITION to be determined Vital Signs: Date Time Temp Pulse Resp B/P (MAP) Pulse Ox O2 Delivery O2 Flow Rate FiO2 12/01/17 15:14 36.8 77 16 177/84 (115) 92 Room Air 12/01/17 08:16 Room Air 12/01/17 07:59 36.9 60 16 156/75 (102) 94 Room Air 11/30/17 23:50 Room Air 11/30/17 22:54 36.7 64 18 144/79 (100) 94 Room Air Lab Results: Results Past 24 Hours Test 12/01/17 06:16 12/01/17 17:35 12/01/17 17:39 Range/Units White Blood Count 9.30 9.98 4.8-10.8 K/uL Red Blood Count 3.66 3.91 4.2-5.4 M/uL Hemoglobin 11.8 12.5 12.0-16.0 g/dL Hematocrit 34.6 37.0 37-47 % Mean Corpuscular Volume 94.5 94.6 80-100 fL Mean Corpuscular Hemoglobin 32.2 32.0 25-34 pg Mean Corpuscular Hemoglobin Concent 34.1 33.8 32-36 g/dl RDW Standard Deviation 55.7 56.9 36.4-46.3 fL RDW Coefficient of Variation 16.1 16.4 11.5-14.5 % Platelet Count 220 230 130-400 K/uL Mean Platelet Volume 10.0 9.7 7.4-10.4 fL Sodium Level 138 136-145 mmol/L Potassium Level 3.9 3.5-5.1 mmol/L Chloride Level 107 98-107 mmol/L Carbon Dioxide Level 25 21-32 mmol/L Anion Gap 6.0 3-11 mmol/L Blood Urea Nitrogen 10 7-18 mg/dl Creatinine 0.98 0.60-1.20 mg/dl Est Creatinine Clear Calc Drug Dose 42.5 ml/min Estimated GFR () 62.3 Estimated GFR (Non- 53.7 BUN/Creatinine Ratio 10.6 10-20 Random Glucose 90 70-99 mg/dl Calcium Level 8.2 8.5-10.1 mg/dl Total Bilirubin 0.5 0.2-1 mg/dl Aspartate Amino Transf (AST/SGOT) 74 15-37 U/L Alanine Aminotransferase (ALT/SGPT) 69 12-78 U/L Alkaline Phosphatase 96 45-117 U/L Total Protein 6.4 6.4-8.2 gm/dl Albumin 2.8 3.4-5.0 gm/dl Globulin 3.6 2.5-4.0 gm/dl Albumin/Globulin Ratio 0.8 0.9-2 Neutrophils (%) (Auto) 68.6 % Lymphocytes (%) (Auto) 14.3 % Monocytes (%) (Auto) 15.2 % Eosinophils (%) (Auto) 1.0 % Basophils (%) (Auto) 0.4 % Neutrophils # (Auto) 6.84 1.4-6.5 K/uL Lymphocytes # (Auto) 1.43 1.2-3.4 K/uL Monocytes # (Auto) 1.52 0.11-0.59 K/uL Eosinophils # (Auto) 0.10 0-0.5 K/uL Basophils # (Auto) 0.04 0-0.2 K/uL Immature Granulocyte % (Auto) 0.5 % Immature Granulocyte # (Auto) 0.05 0.00-0.02 K/uL Ammonia < 10.0 11-32 umol/L Arterial Blood pH 7.49 7.35-7.45 Arterial Blood Partial Pressure CO2 32 35-46 mmHg Arterial Blood Partial Pressure O2 75 80-95 mm/Hg Arterial Blood HCO3 23 19-24 mmol/L Arterial Blood Oxygen Saturation 95.6 90-95 % Arterial Blood Base Excess 0.5 -9-1.8 mEq/L Arterial Blood Gas Delivery ROOM AIR Patric Test POS POS
[2017-12-01 18:40] LABS: ALBUMIN 2.9 gm/dl (3.4-5.0); CALCIUM 8.6 mg/dl (8.5-10.1); CREATININE 1.01 mg/dl (0.60-1.20); POTASSIUM 3.9 mmol/L (3.5-5.1)
[2017-12-01 18:43] LABS: TOTAL PROTEIN 6.8 gm/dl (6.4-8.2)
[2017-12-01 19:29] VITALS: BP 162/80
[2017-12-01] MEDS: CEPHALEXIN MONOHYDRATE 500 MG CAP PO SCH (21:06)
[2017-12-01] MEDS: MONTELUKAST SOD 10 MG TAB PO SCH (21:06)
[2017-12-01 22:46] VITALS: BP 156/79; PULSE 83; TEMP 37.3; O2SAT 94
[2017-12-02] MEDS: ACETAMINOPHEN 325 MG TAB PO PRN (06:09)
[2017-12-02] MEDS: LEVOTHYROXINE 50 MCG TAB PO SCH (06:09)
[2017-12-02] MEDS: HEPARIN SOD 5000 UNIT/0.5 ML CARP SQ SCH ×3 (06:13→21:30)
[2017-12-02] MEDS ORDERED: ALBUTEROL HFA 8 GM INHALER INH PRN (07:45)
[2017-12-02 08:46] VITALS: BP 149/98; PULSE 116; TEMP 37.3; O2SAT 92
[2017-12-02] MEDS: TRAMADOL HCL 50 MG TAB PO PRN ×2 (09:09→18:43)
[2017-12-02] MEDS: CETIRIZINE HCL 10 MG TAB PO SCH (09:10)
[2017-12-02] MEDS: ALLOPURINOL 300 MG TAB PO SCH (09:10)
[2017-12-02] MEDS: FLUTICASONE/SALMETEROL (ADVAIR) 500/50 INH 14 PUFF INH SCH ×2 (09:10→21:33)
[2017-12-02] MEDS: PANTOprazole SOD 40 MG TAB PO SCH (09:10)
[2017-12-02] MEDS: TELMISARTAN 40 MG TAB PO SCH (09:11)
[2017-12-02] MEDS: CEPHALEXIN MONOHYDRATE 500 MG CAP PO SCH ×2 (09:11→21:32)
[2017-12-02] MEDS: GABAPENTIN 100 MG CAP PO SCH ×3 (09:12→21:31)
[2017-12-02] MEDS: METOPROLOL SUCC 50MG EXT REL TAB PO SCH (10:55)
[2017-12-02] MEDS: ASPIRIN 81 MG ECTAB PO SCH (10:55)
[2017-12-02] MEDS: PANTOprazole INJ 40 MG in SYRINGE 0 ML IV SCH (10:55)
[2017-12-02] MEDS: LIDODERM (LIDOCAINE) PATCH 5% TD SCH (13:12)
[2017-12-02] MEDS ORDERED: OXYCODONE/ACETAMINOPHEN 5-325 TAB PO PRN ×2 (13:15→13:45)
[2017-12-02] MEDS ORDERED: POLYETHYLENE (MIRALAX) 17 GM PACK PO ONE (13:30)
[2017-12-02 15:33] VITALS: BP 133/72; PULSE 86; TEMP 37.4; O2SAT 92
--- NOTE | 2017-12-02 17:23 | Progress Note ---
Internal Med Progress Note Date of Service: Dec 02, 2017. Provider Documentation: SUBJECTIVE: abdominal pain is ok but has lot of neck pain appetite not great no nausea no fevers more alert and awake today family in room OBJECTIVE: Vital Signs-as noted below Exam: General-alert and awake. not in distress ENT-normal hearing. Neck-No neck masses Lungs-CTA b/l no wheezing or crackles Heart-S1 and S2 heard regular rate and rhythm no murmurs Abdomen-soft Bowels sounds sluggish s/p lap yokasta dressing intact Extremities-trace edema no erythema Neuro-alert and awake. moves extremities Lab data as noted below. ASSESSMENT & PLAN: Encephalopathy mostly toxic from meds received iv Dilaudid, Phenergan and tramadol post op holding above pain meds f/u labs- seems ok hemodynamics stable currently resolved close monitor Acute cholecystitis with gallstones. on ct scan, mrcp and US npo, iv abx, iv fluids s/p lap yokasta 11/29/17 started on full liquid diet advancing diet to low fat diet Acute gall stone pancreatitis on aggressive fluids, npo, iv pain meds and antiemetics. s/p cholecystectomy 07/08 lipase normalized. will f/u repeat levels-normal on full liquid diet.diet advanced. hiccups a dose of baclofen given resolved uti received iv cefoxitin on Keflex Neck pain pain control Mild asthma, seems to be controlled at this time. will monitor. Hypertension. restarted Toprol xl.telmisartan. iv hydralazine prn. Hypothyroidism. Synthroid Hyperlipidemia. Holding statin right now. Hiatal hernia with esophageal reflux. Protonix. Chronic diastolic CHF.On Lasix prn at home which is held. monitor for volume overload as patient on fluids for pancreatitis. stopped fluids .cardiology on board.stable. Will give a dose of lasix Code status, full code. DVT PROPHYLAXIS hep sub q DISPOSITION possible d/c in am ambulate in hallways Vital Signs: Date Time Temp Pulse Resp B/P (MAP) Pulse Ox O2 Delivery O2 Flow Rate FiO2 12/02/17 15:50 Room Air 12/02/17 15:33 37.4 86 16 133/72 (92) 92 Room Air 12/02/17 08:46 37.3 116 18 149/98 (115) 92 Room Air 12/02/17 07:45 Room Air 12/02/17 00:00 Room Air 12/01/17 22:46 37.3 83 20 156/79 (104) 94 Room Air 12/01/17 19:40 Room Air 12/01/17 19:29 162/80 (107) Lab Results: Results Past 24 Hours Test 12/01/17 17:35 12/01/17 17:39 Range/Units White Blood Count 9.98 4.8-10.8 K/uL Red Blood Count 3.91 4.2-5.4 M/uL Hemoglobin 12.5 12.0-16.0 g/dL Hematocrit 37.0 37-47 % Mean Corpuscular Volume 94.6 80-100 fL Mean Corpuscular Hemoglobin 32.0 25-34 pg Mean Corpuscular Hemoglobin Concent 33.8 32-36 g/dl Platelet Count 230 130-400 K/uL Mean Platelet Volume 9.7 7.4-10.4 fL Neutrophils (%) (Auto) 68.6 % Lymphocytes (%) (Auto) 14.3 % Monocytes (%) (Auto) 15.2 % Eosinophils (%) (Auto) 1.0 % Basophils (%) (Auto) 0.4 % Neutrophils # (Auto) 6.84 1.4-6.5 K/uL Lymphocytes # (Auto) 1.43 1.2-3.4 K/uL Monocytes # (Auto) 1.52 0.11-0.59 K/uL Eosinophils # (Auto) 0.10 0-0.5 K/uL Basophils # (Auto) 0.04 0-0.2 K/uL RDW Standard Deviation 56.9 36.4-46.3 fL RDW Coefficient of Variation 16.4 11.5-14.5 % Immature Granulocyte % (Auto) 0.5 % Immature Granulocyte # (Auto) 0.05 0.00-0.02 K/uL Sodium Level 136 136-145 mmol/L Potassium Level 3.9 3.5-5.1 mmol/L Chloride Level 108 98-107 mmol/L Carbon Dioxide Level 25 21-32 mmol/L Anion Gap 3.0 3-11 mmol/L Blood Urea Nitrogen 9 7-18 mg/dl Creatinine 1.01 0.60-1.20 mg/dl Est Creatinine Clear Calc Drug Dose 41.3 ml/min Estimated GFR () 60.0 Estimated GFR (Non- 51.8 BUN/Creatinine Ratio 9.1 10-20 Random Glucose 97 70-99 mg/dl Calcium Level 8.6 8.5-10.1 mg/dl Magnesium Level 2.1 1.8-2.4 mg/dl Total Bilirubin 0.5 0.2-1 mg/dl Aspartate Amino Transf (AST/SGOT) 69 15-37 U/L Alanine Aminotransferase (ALT/SGPT) 70 12-78 U/L Alkaline Phosphatase 102 45-117 U/L Ammonia < 10.0 11-32 umol/L Total Protein 6.8 6.4-8.2 gm/dl Albumin 2.9 3.4-5.0 gm/dl Globulin 3.9 2.5-4.0 gm/dl Albumin/Globulin Ratio 0.7 0.9-2 Lipase 121 73-393 U/L Arterial Blood pH 7.49 7.35-7.45 Arterial Blood Partial Pressure CO2 32 35-46 mmHg Arterial Blood Partial Pressure O2 75 80-95 mm/Hg Arterial Blood HCO3 23 19-24 mmol/L Arterial Blood Oxygen Saturation 95.6 90-95 % Arterial Blood Base Excess 0.5 -9-1.8 mEq/L Arterial Blood Gas Delivery ROOM AIR Patric Test POS POS
[2017-12-02] MEDS ORDERED: FUROSEMIDE INJ 20 MG in SYRINGE 0 ML IV SCH (18:00)
[2017-12-02] MEDS: MONTELUKAST SOD 10 MG TAB PO SCH (21:31)
[2017-12-02] MEDS: ATORVASTATIN 20 MG TAB PO SCH (22:19)
[2017-12-02] MEDS: RANITIDINE HCL 150 MG TAB PO SCH (22:19)
[2017-12-02 23:05] VITALS: BP 157/84; PULSE 98; TEMP 37.8; O2SAT 92
[2017-12-03] MEDS: HYDROCODONE/ACETAMIN 5/325MG TAB PO PRN ×3 (02:29→23:59)
[2017-12-03] MEDS: LEVOTHYROXINE 50 MCG TAB PO SCH (05:33)
[2017-12-03] MEDS: HEPARIN SOD 5000 UNIT/0.5 ML CARP SQ SCH ×3 (05:45→21:36)
[2017-12-03 06:08] LABS: HEMATOCRIT 35.8 % (37-47); HEMOGLOBIN 12.6 g/dL (12.0-16.0); MEAN CELL VOLUME 92.5 fL (80-100); MEAN CORPUSCULAR HEMOGLOBIN 32.6 pg (25-34); MEAN CORPUSCULAR HGB CONC 35.2 g/dl (32-36); MEAN PLATELET VOLUME 9.6 fL (7.4-10.4); PLATELET COUNT 222 K/uL (130-400); RED CELL DISTRIBUTION WIDTH CV 15.9 % (11.5-14.5); RED CELL DISTRIBUTION WIDTH SD 53.5 fL (36.4-46.3); WHITE BLOOD COUNT 11.68 K/uL (4.8-10.8)
[2017-12-03 07:03] VITALS: BP 135/84; PULSE 76; TEMP 37.2; O2SAT 93
[2017-12-03] MEDS: TRAMADOL HCL 50 MG TAB PO PRN ×2 (07:56→21:31)
[2017-12-03] MEDS: FLUTICASONE/SALMETEROL (ADVAIR) 500/50 INH 14 PUFF INH SCH ×2 (08:48→21:21)
[2017-12-03] MEDS: METOPROLOL SUCC 50MG EXT REL TAB PO SCH (08:48)
[2017-12-03] MEDS: ASPIRIN 81 MG ECTAB PO SCH (08:48)
[2017-12-03] MEDS: GABAPENTIN 100 MG CAP PO SCH ×3 (08:49→21:23)
[2017-12-03] MEDS: TELMISARTAN 40 MG TAB PO SCH (08:49)
[2017-12-03] MEDS: ALLOPURINOL 300 MG TAB PO SCH (08:49)
[2017-12-03] MEDS: CEPHALEXIN MONOHYDRATE 500 MG CAP PO SCH ×2 (08:49→21:23)
[2017-12-03] MEDS: LIDODERM (LIDOCAINE) PATCH 5% TD SCH (08:50)
[2017-12-03] MEDS ORDERED: LIDODERM (LIDOCAINE) PATCH 5% TD SCH (09:00)
[2017-12-03] MEDS: CETIRIZINE HCL 10 MG TAB PO SCH (10:11)
[2017-12-03] MEDS: PANTOprazole SOD 40 MG TAB PO SCH (10:11)
[2017-12-03] MEDS ORDERED: MAGNESIUM CITRATE 296 ML/BTL PO ONE (15:00)
[2017-12-03 15:01] VITALS: BP 146/83; PULSE 105; TEMP 37.4; O2SAT 93
[2017-12-03] MEDS: ACETAMINOPHEN 325 MG TAB PO PRN (16:12)
--- NOTE | 2017-12-03 16:12 | Progress Note ---
Internal Med Progress Note Date of Service: Dec 03, 2017. Provider Documentation: SUBJECTIVE: complains of pain back of right knee complains pain in LLQ abdomen complains of pain in the neck constipated eating ok afebrile family in room OBJECTIVE: Vital Signs-as noted below Exam: General-alert and awake. not in distress ENT-normal hearing. Neck-No neck masses Lungs-CTA b/l no wheezing or crackles Heart-S1 and S2 heard regular rate and rhythm no murmurs Abdomen-soft Bowels sounds sluggish s/p lap yokasta dressing intact mild llq tenderness Extremities-trace edema no erythema Neuro-alert and awake. moves extremities Lab data as noted below. ASSESSMENT & PLAN: Encephalopathy mostly toxic from meds received iv Dilaudid, Phenergan and tramadol post op holding above pain meds f/u labs- seems ok hemodynamics stable currently resolved close monitor Acute cholecystitis with gallstones. on ct scan, mrcp and US npo, iv abx, iv fluids s/p lap yokasta 11/29/17 started on full liquid diet advancing diet to low fat diet tolerating diet finer Acute gall stone pancreatitis on aggressive fluids, npo, iv pain meds and antiemetics. s/p cholecystectomy 07/08 lipase normalized. will f/u repeat levels-normal on full liquid diet.diet advanced to low fat diet and tolerating fine.\ LLQ abdominal pain will f/u ct scan Severe neck pain perisistent will f/u ct scan Right knee pain back of knee f/u dopper and xray hiccups a dose of baclofen given resolved uti received iv cefoxitin on Keflex Stable conditions: Mild asthma, seems to be controlled at this time. will monitor. Hypertension. restarted Toprol xl.telmisartan. iv hydralazine prn. Hypothyroidism. Synthroid Hyperlipidemia. Holding statin right now. Hiatal hernia with esophageal reflux. Protonix. Chronic diastolic CHF.On Lasix prn at home which is held. monitor for volume overload as patient on fluids for pancreatitis. stopped fluids .cardiology on board.stable. Will give a dose of lasix Code status, full code. DVT PROPHYLAXIS hep sub q DISPOSITION possible d/c in am ambulate in hallways Vital Signs: Date Time Temp Pulse Resp B/P (MAP) Pulse Ox O2 Delivery O2 Flow Rate FiO2 12/03/17 15:01 37.4 105 18 146/83 (104) 93 Room Air 12/03/17 07:52 Room Air 12/03/17 07:03 37.2 76 18 135/84 (101) 93 Room Air 12/03/17 00:00 Room Air 12/02/17 23:05 37.8 98 16 157/84 (108) 92 Room Air Lab Results: Results Past 24 Hours Test 12/03/17 05:40 12/03/17 12:35 Range/Units White Blood Count 11.68 4.8-10.8 K/uL Red Blood Count 3.87 4.2-5.4 M/uL Hemoglobin 12.6 12.0-16.0 g/dL Hematocrit 35.8 37-47 % Mean Corpuscular Volume 92.5 80-100 fL Mean Corpuscular Hemoglobin 32.6 25-34 pg Mean Corpuscular Hemoglobin Concent 35.2 32-36 g/dl RDW Standard Deviation 53.5 36.4-46.3 fL RDW Coefficient of Variation 15.9 11.5-14.5 % Platelet Count 222 130-400 K/uL Mean Platelet Volume 9.6 7.4-10.4 fL Lactic Acid Level 0.8 0.4-2.0 mmol/L
--- NOTE | 2017-12-03 16:55 | DIAGNOSTIC IMAGING REPORT ---
ABD/PELVIS NO IV OR ORAL CONT CLINICAL HISTORY: 82 years-old Female presenting with llq abdominal pain. TECHNIQUE: Multidetector CT of the abdomen and pelvis was performed without the use of intravenous contrast. IV contrast: None. A dose lowering technique was used consistent with the principles of ALARA (as low as reasonably achievable). COMPARISON: 11/27/2017. CT DOSE (mGy.cm): The estimated cumulative dose is 964.43 mGy.cm. 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 Gaseous distention of bowel. Lumbar fusion hardware. Lung bases: Interval development of extensive dependent consolidation greater on the right. Associated small right and trace left pleural effusions. Multichamber enlargement of the heart. Coronary artery calcification. No pericardial effusion. Liver: Normal morphology. Normal density. Biliary: Mild biliary ductal prominence likely a reservoir effect in the post cholecystectomy state. Gallbladder surgically absent. Pancreas: Mild parenchymal atrophy. Spleen: Normal noncontrast appearance. Adrenal glands: Normal noncontrast appearance. Kidneys and ureters: Hypodensity at the medial aspect of the lower pole the right kidney likely cyst though indeterminate on this noncontrast exam. No nephrolithiasis. No hydronephrosis. Bladder: Normal. Pelvic organs: Normal noncontrast appearance. Bowel: Diverticulosis of the sigmoid colon. No pericolonic inflammatory change. The appendix is normal. No bowel obstruction. Peritoneal cavity: No free fluid or intraperitoneal gas. Lymph nodes: No gross lymphadenopathy allowing for noncontrast technique. Vasculature: Atherosclerosis of the normal caliber abdominal aorta. Abdominal wall: Fat-containing right inguinal hernia multifocal sites of infiltration along the anterior abdominal wall possibly postsurgical and/or related to medication menstruation. Small fat-containing umbilical hernia also noted. Nonspecific subcutaneous edema in the lumbar region. Musculoskeletal: Degenerative changes of the spine. Posterior lumbar fusion hardware at L4-5 with laminectomy defect of L4. Osteopenia. IMPRESSION: 1. Post surgical changes of cholecystectomy. No evidence of complication. 2. Interval development of small right and trace left pleural effusions with associated passive atelectasis. 3. Diverticulosis. No evidence of diverticulitis. 4. No convincing evidence of acute intra-abdominal pathology. Electronically signed by: Boston Gonzales M.D. 12/03/2017 4:54 PM Dictated Date/Time: 12/03/2017 4:46 PM
--- NOTE | 2017-12-03 17:07 | DIAGNOSTIC IMAGING REPORT ---
CERVICAL SPINE W/O CLINICAL HISTORY: 82 years-old Female presenting with severe persistent neck pain. TECHNIQUE: Multidetector CT of the cervical spine was performed without the use of intravenous contrast. IV contrast: None. A dose lowering technique was used consistent with the principles of ALARA (as low as reasonably achievable). COMPARISON: 03/11/2016. CT DOSE (mGy.cm): The estimated cumulative dose is 264.37. 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 Slight reversal of of normal cervical lordosis likely positional and related to multilevel degenerative changes. No acute fracture or subluxation. Extensive multilevel degenerative changes with disc osteophyte complexes at every level as well as multilevel facet arthropathy. Significant degenerative change at the atlantodental articulation. Skull base intact. Degenerative change results in varying degrees of multilevel osseous neural foraminal narrowing. No osseous spinal canal narrowing. Pleural parenchymal scarring suggested at the lung apices. Paraspinal soft tissues within normal limits allowing for noncontrast technique. IMPRESSION: 1. No acute osseous injury of the cervical spine. 2. Multilevel degenerative changes. Electronically signed by: Boston Gonzales M.D. 12/03/2017 5:06 PM Dictated Date/Time: 12/03/2017 5:01 PM
--- NOTE | 2017-12-03 17:36 | DIAGNOSTIC IMAGING REPORT ---
R KNEE 1 OR 2 VIEWS ROUTINE CLINICAL HISTORY: 82 years-old Female presenting with rt knee pain. TECHNIQUE: Frontal and lateral views of the right knee were obtained. COMPARISON: None. FINDINGS: No acute fracture or malalignment. Chondrocalcinosis. Osteopenia suspected. Small knee joint effusion suggested. Atherosclerosis. IMPRESSION: 1. No acute osseous injury. 2. Extensive chondrocalcinosis, which can be a source of pain in some patients. 3. Small joint effusion. Electronically signed by: Boston Gonzales M.D. 12/03/2017 5:35 PM Dictated Date/Time: 12/03/2017 5:33 PM
--- NOTE | 2017-12-03 19:38 | DIAGNOSTIC IMAGING REPORT ---
R VENOUS DOPP LOWER EXT UNILAT CLINICAL HISTORY: 82 years-old Female presenting with right LE DVT. TECHNIQUE: Real-time grayscale and color and spectral Doppler ultrasound imaging of the veins of the right lower extremity was performed. Compression and augmentation were also utilized. COMPARISON: None. FINDINGS: Right: Common femoral vein: Patent. Greater saphenous vein: Patent. Deep femoral vein: Patent. Femoral vein: Patent. Popliteal vein: Patent. Calf veins: Patent. Other: None. IMPRESSION: No evidence of deep venous thrombosis. Electronically signed by: Boston Gonzales M.D. 12/03/2017 7:37 PM Dictated Date/Time: 12/03/2017 7:36 PM
[2017-12-03] MEDS: MONTELUKAST SOD 10 MG TAB PO SCH (21:23)
[2017-12-03] MEDS: ATORVASTATIN 20 MG TAB PO SCH (21:23)
[2017-12-03] MEDS: RANITIDINE HCL 150 MG TAB PO SCH (21:23)
[2017-12-03 22:50] VITALS: BP 135/85; PULSE 92; TEMP 36.9; O2SAT 94
[2017-12-04] MEDS: LEVOTHYROXINE 50 MCG TAB PO SCH (05:32)
[2017-12-04] MEDS: HEPARIN SOD 5000 UNIT/0.5 ML CARP SQ SCH ×2 (05:34→14:00)
[2017-12-04 07:54] VITALS: BP 123/63; PULSE 74; TEMP 36.4; O2SAT 94
[2017-12-04] MEDS: FLUTICASONE/SALMETEROL (ADVAIR) 500/50 INH 14 PUFF INH SCH (10:20)
[2017-12-04] MEDS: CEPHALEXIN MONOHYDRATE 500 MG CAP PO SCH (10:21)
[2017-12-04] MEDS: GABAPENTIN 100 MG CAP PO SCH ×2 (10:22→14:11)
[2017-12-04] MEDS: ALLOPURINOL 300 MG TAB PO SCH (10:22)
[2017-12-04] MEDS: CETIRIZINE HCL 10 MG TAB PO SCH (10:22)
[2017-12-04] MEDS: LIDODERM (LIDOCAINE) PATCH 5% TD SCH (10:23)
[2017-12-04] MEDS: ASPIRIN 81 MG ECTAB PO SCH (10:24)
[2017-12-04] MEDS: TELMISARTAN 40 MG TAB PO SCH (10:25)
[2017-12-04] MEDS: METOPROLOL SUCC 50MG EXT REL TAB PO SCH (10:27)
[2017-12-04] MEDS: HYDROCODONE/ACETAMIN 5/325MG TAB PO PRN (11:04)
[2017-12-04] MEDS: PANTOprazole SOD 40 MG TAB PO SCH (11:04)
[2017-12-04] MEDS ORDERED: MRLP17X PO (12:57)
[2017-12-04] MEDS ORDERED: HYDR-5688 PO (12:57)
--- NOTE | 2017-12-04 12:59 | Discharge Instructions ---
Discharge Instructions Date of Service Dec 04, 2017. Admission Reason for Admission: Acute Cholecystitis,Acute Pancreatitis,Asthma Discharge Discharge Diagnosis / Problem: acute gall stone pancreatitis , acute cholecystitis Discharge Goals Goal(s): Decrease discomfort, Improve function Activity Recommendations Activity Limitations: resume your previous activity . Instructions / Follow-Up Instructions / Follow-Up FOLLOWUP WITH FAMILY DOCTOR ON November AT 9:45AM [employer] Machine Feeder Recommendations No heavy lifting over 20 pounds for 4 weeks No strenuous activity until cleared by surgeon No submerging incisions underwater for 2 weeks (no bathing, swimming, or hot tubs) No driving while taking narcotic pain medication or until you are pain free You may shower when you get home. Take off outer dressings and replace as needed. Leave steri strips on incisions for 7 days and then remove. They may fall off on their own that is okay. you do not need to replace them Walking and light activity is encouraged to prevent blood clots from forming You will be given narcotic pain medication as needed for moderate to severe pain. This medication may make you drowsy and can cause constipation. To combat constipation, you may take OTC stool softener such as Colace, gentle laxative, prune juice, and drink plenty of water You may take extra strength Tylenol as needed for mild pain Follow-up in surgical office in 1 week, please call office at [phone] to make an appointment Current Hospital Diet Patient's current hospital diet: Low Fat Diet Discharge Diet Recommended Diet: Low Fat Diet Procedures Procedures Performed: Laparoscopic Cholecystectomy Pending Studies Studies pending at discharge: no Medical Emergencies . Who to Call and When: Medical Emergencies: If at any time you feel your situation is an emergency, please call 911 immediately. . Non-Emergent Contact Non-Emergency issues call your: Primary Care Provider . . "Provider Documentation" section prepared by Shine Orosco. . Tamale Machine Feeder Recommendations Tamale Machine Feeder Recommendations: No heavy lifting over 20 pounds for 4 weeks No strenuous activity until cleared by surgeon No submerging incisions underwater for 2 weeks (no bathing, swimming, or hot tubs) No driving while taking narcotic pain medication or until you are pain free You may shower when you get home. Take off outer dressings and replace as needed. Leave steri strips on incisions for 7 days and then remove. They may fall off on their own that is okay. you do not need to replace them Walking and light activity is encouraged to prevent blood clots from forming You will be given narcotic pain medication as needed for moderate to severe pain. This medication may make you drowsy and can cause constipation. To combat constipation, you may take OTC stool softener such as Colace, gentle laxative, prune juice, and drink plenty of water You may take extra strength Tylenol as needed for mild pain Follow-up in surgical office in 1 week, please call office at [phone] to make an appointment
[2017-12-04 14:22] VITALS: BP 123/63; PULSE 74; TEMP 36.4; O2SAT 94
--- NOTE | 2017-12-04 19:21 | Progress Note ---
Internal Med Progress Note Date of Service: Dec 04, 2017. Provider Documentation: SUBJECTIVE: has some neck pain some lower abd pain afebrile moved bowels no sob or chest pain ok for discharge OBJECTIVE: Vital Signs-as noted below Exam: General-alert and awake. not in distress ENT-normal hearing. Neck-No neck masses Lungs-CTA b/l no wheezing or crackles Heart-S1 and S2 heard regular rate and rhythm no murmurs Abdomen-soft Bowels sounds sluggish s/p lap yokasta mild llq tenderness Extremities-trace edema no erythema Neuro-alert and awake. moves extremities Lab data as noted below. ASSESSMENT & PLAN: Encephalopathy mostly toxic from meds received iv Dilaudid, Phenergan and tramadol post op holding above pain meds f/u labs- seems ok hemodynamics stable currently resolved Acute cholecystitis with gallstones. on ct scan, mrcp and US npo, iv abx, iv fluids s/p lap yokasta 11/29/17 started on full liquid diet advancing diet to low fat diet tolerating diet finer d/suzanne home Acute gall stone pancreatitis on aggressive fluids, npo, iv pain meds and antiemetics. s/p cholecystectomy 07/08 lipase normalized. will f/u repeat levels-normal on full liquid diet.diet advanced to low fat diet and tolerating fine.\ stable LLQ abdominal pain ct scan unremarkable Severe neck pain persistent ct scan- severe degenerative changes otherwise no acute findings Right knee pain back of knee dopper negative and xray-chondrocalcinosis hiccups a dose of baclofen given resolved uti received iv cefoxitin on Keflex. completed course Mild asthma, seems to be controlled at this time. will monitor. Hypertension. restarted Toprol xl.telmisartan. iv hydralazine prn. Hypothyroidism. Synthroid Hyperlipidemia. statin Hiatal hernia with esophageal reflux. Protonix. Chronic diastolic CHF.On Lasix prn at home which is held. monitor for volume overload as patient on fluids for pancreatitis. stopped fluids .cardiology on board.stable. Will give a dose of lasix. stable Discharged home Vital Signs: Date Time Temp Pulse Resp B/P (MAP) Pulse Ox O2 Delivery O2 Flow Rate FiO2 12/04/17 14:22 36.4 74 16 94 Room Air 12/04/17 10:15 Room Air 4/16/18 07:54 36.4 74 16 123/63 (83) 94 Room Air 12/04/17 00:00 Room Air 12/03/17 22:50 36.9 92 16 135/85 (102) 94 Room Air
--- NOTE | 2017-12-04 19:37 | Discharge Summary ---
Discharge Summary Date of Service Dec 04, 2017. Discharge Summary Admission Date: Nov 27, 2017 at 21:51 Discharge Date: Dec 04, 2017 Discharge Disposition: Home Principal Diagnosis: ACUTE GALL STONE PANCREATITIS ACUTE CHOLECYSTITIS Secondary Diagnoses/Problems: senile osteoporosis, chronic left bundle branch block, hypothyroidism, osteoarthritis, hyperlipidemia, ARPIT, essential tremor, hypertension, diastolic heart failure, chronic kidney disease stage III. Procedures: CT ABD/PELVIS 11/27/17: 1. Cholelithiasis with evidence of severe acute cholecystitis. Surgical consultation is advised. 2. There is mild intra and extrahepatic biliary ductal dilatation. 3. Although the bladder is decompressed, the wall is thickened and hyperemic. Pericystic inflammation is identified. Correlate clinically and with urinalysis for evidence of cystitis. 4. Moderate sigmoid diverticulosis without CT evidence of acute diverticulitis. 5. Cardiomegaly and small hiatal hernia. MRCP: 1. Mildly distended gallbladder with a small amount of pericholecystic fluid and a small gallstone. This is concerning for acute cholecystitis. Clinical correlation recommended. 2. Mild intra and extra hepatic bile duct dilatation. No evidence for a common bile duct stone. 3. The main pancreatic duct is normal in course and caliber. 4. Mild peripancreatic edema suggestive of acute pancreatitis. GALL BLADDER US: 1. Gallstones and gallbladder sludge. In light of the recent CT and MRI, ultrasound findings are equivocal for cholecystitis. Further evaluation with nuclear medicine HIDA scan recommended given the high clinical concern on recent imaging for acute cholecystitis. 2. Hepatic steatosis. RT VENOUS DOPPLER: No evidence of deep venous thrombosis. RT KNEE XRAY: 1. No acute osseous injury. 2. Extensive chondrocalcinosis, which can be a source of pain in some patients. 3. Small joint effusion. CT CERVICAL SPINE: Slight reversal of of normal cervical lordosis likely positional and related to multilevel degenerative changes. No acute fracture or subluxation. Extensive multilevel degenerative changes with disc osteophyte complexes at every level as well as multilevel facet arthropathy. Significant degenerative change at the atlantodental articulation. Skull base intact. Degenerative change results in varying degrees of multilevel osseous neural foraminal narrowing. No osseous spinal canal narrowing. Pleural parenchymal scarring suggested at the lung apices. Paraspinal soft tissues within normal limits allowing for noncontrast technique. IMPRESSION: 1. No acute osseous injury of the cervical spine. 2. Multilevel degenerative changes. CT ABD/PELVIS 12/03/17: 1. Post surgical changes of cholecystectomy. No evidence of complication. 2. Interval development of small right and trace left pleural effusions with associated passive atelectasis. 3. Diverticulosis. No evidence of diverticulitis. 4. No convincing evidence of acute intra-abdominal pathology. S/P LAP YOKASTA Consultations: GI SURGERY Medication Reconciliation New Medications: Hydrocodone/Acetaminophen 5MG/325MG ([place] 5MG/325MG) Tab 1 TABLET PO Q6 PRN for Pain, #10 TAB Ondasetron Odt (Zofran Odt) 4 Mg Tab 4 MG SL Q6H PRN for Nausea, #30 TAB Polyethylene (Miralax) 17 Gm Pow 17 GM PO DAILY PRN for Constipation, #10 Continued Medications: Allopurinol (Allopurinol) 300 Mg Tab 150 MG PO DAILY Pt states drMadiha changed to 150 mg daily Aspirin (Aspirin Adult Low Strengt) 81 Mg Tab 1 TAB PO DAILY Atorvastatin (Lipitor) 20 Mg Tab 20 MG PO HS Benzonatate (Benzonatate) 100 Mg Cap 100 MG PO TID PRN for Cough Cetirizine HCl (Ra Allergy Relief) 10 Mg Tab 10 MG PO DAILY Fluticasone Prop/Salmeterol (Advair Diskus 500/50 60 Dose) 1 Ea Aerp 1 PUFF INH BID Furosemide (Furosemide) 20 Mg Tab 20 MG PO WK Gabapentin (Gabapentin) 100 Mg Cap 100 MG PO TID Levothyroxine Sodium (Levothyroxine Sodium) 50 Mcg Tab 50 MCG PO DAILY Linaclotide (Linzess) 145 Mcg Cap 145 MCG PO DAILY Metoprolol Succinate (Toprol Xl) 50 Mg Tabcr 50 MG PO DAILY Montelukast Sod (Montelukast Sodium) 10 Mg Tab 10 MG PO HS Multivitamins/Minerals (Mvi With Minerals) Tab 1 TAB PO DAILY Pantoprazole (Pantoprazole Sodium) 40 Mg Tab 40 MG PO DAILY Ranitidine Hcl (Zantac) 300 Mg Tab 300 MG PO HS Telmisartan (Telmisartan) 40 Mg Tab 40 MG PO DAILY [Proair Hfa 90 Mcg] () 2 PUFF INH Q4 PRN for SOB/Wheezing Discontinued Medications: Tramadol (Ultram) 50 Mg Tab 1 TAB PO TID PRN for Pain for 30 Days, #90 TAB Admission Information HPI (per Admitting provider): She is an 82-year-old female with significant past medical history including CAD, diastolic heart failure, chronic kidney disease stage III, history of essential tremor, osteoporosis, chronic left bundle branch block, hypothyroidism, and hyperlipidemia, apparently has been complaining of abdominal pain mostly in the upper abdomen and more in the right upper quadrant since last evening. She has had some abdominal discomfort for more than a week. She complained to have sweating last night, but no fever documented. She feels nauseous, but no vomiting. She has had diarrhea about 12 times today. With these symptoms, she was brought into the Emergency Room and she was noted to have CT findings of acute cholecystitis with increased white count and increased LFTs and also her lipase is elevated with dilatation of the bile duct. From that point, surgery was consulted and they requested medicine service to take the admission. She denies to have any chest pain, any palpitation on usual activities. 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 VITAL SIGNS: Temperature 36.5, pulse is 85, blood pressure 170/101, saturation 97% on room air. HEENT: Unremarkable. NECK: Supple, no JVD, no bruit. CHEST: Clear to auscultate bilaterally. HEART: S1, S2 regular. ABDOMEN: Mildly distended, soft, tender in the right upper quadrant with guarding and rigidity. [place] sign positive. Bowel sounds present. EXTREMITIES: Negative for any edema. MUSCULOSKELETAL SYSTEM: Did not show any acute arthritis. CENTRAL NERVOUS SYSTEM: She was alert, awake, oriented x3. Hospital Course Encephalopathy mostly toxic from meds received iv Dilaudid, Phenergan and tramadol post op holding above pain meds f/u labs- seems ok hemodynamics stable currently resolved Acute cholecystitis with gallstones. on ct scan, mrcp and US npo, iv abx, iv fluids s/p lap yokasta 11/29/17 started on full liquid diet advancing diet to low fat diet tolerating diet finer d/suzanne home Acute gall stone pancreatitis on aggressive fluids, npo, iv pain meds and antiemetics. s/p cholecystectomy 4/ 11/18 lipase normalized. will f/u repeat levels-normal on full liquid diet.diet advanced to low fat diet and tolerating fine.\\ stable LLQ abdominal pain ct scan unremarkable Severe neck pain persistent ct scan- severe degenerative changes otherwise no acute findings. ORTHO REFERRAL PER PCP Right knee pain back of knee dopper negative and xray-chondrocalcinosis hiccups a dose of baclofen given resolved uti received iv cefoxitin on Keflex. completed course Mild asthma, seems to be controlled at this time. will monitor. Hypertension. restarted Toprol xl.telmisartan. iv hydralazine prn. Hypothyroidism. Synthroid Hyperlipidemia. statin Hiatal hernia with esophageal reflux. Protonix. Chronic diastolic CHF.On Lasix prn at home which is held. monitor for volume overload as patient on fluids for pancreatitis. stopped fluids .cardiology on board.stable. Will give a dose of lasix. stable Discharged home Total time spent on discharge = 35MINUTES This includes examination of the patient, discharge planning, medication reconciliation, and communication with other providers. Discharge Instructions Discharge Instructions Date of Service Dec 04, 2017. Admission Reason for Admission: Acute Cholecystitis,Acute Pancreatitis,Asthma Discharge Discharge Diagnosis / Problem: acute gall stone pancreatitis , acute cholecystitis Discharge Goals Goal(s): Decrease discomfort, Improve function Activity Recommendations Activity Limitations: resume your previous activity . Instructions / Follow-Up Instructions / Follow-Up FOLLOWUP WITH FAMILY DOCTOR ON November AT 9:45AM [employer] Recommendations No heavy lifting over 20 pounds for 4 weeks No strenuous activity until cleared by surgeon No submerging incisions underwater for 2 weeks (no bathing, swimming, or hot tubs) No driving while taking narcotic pain medication or until you are pain free You may shower when you get home. Take off outer dressings and replace as needed. Leave steri strips on incisions for 7 days and then remove. They may fall off on their own that is okay. you do not need to replace them Walking and light activity is encouraged to prevent blood clots from forming You will be given narcotic pain medication as needed for moderate to severe pain. This medication may make you drowsy and can cause constipation. To combat constipation, you may take OTC stool softener such as Colace, gentle laxative, prune juice, and drink plenty of water You may take extra strength Tylenol as needed for mild pain Follow-up in surgical office in 1 week, please call office at [phone] to make an appointment Current Hospital Diet Patient's current hospital diet: Low Fat Diet Discharge Diet Recommended Diet: Low Fat Diet Procedures Procedures Performed: Laparoscopic Cholecystectomy Pending Studies Studies pending at discharge: no Medical Emergencies . Who to Call and When: Medical Emergencies: If at any time you feel your situation is an emergency, please call 911 immediately. . Non-Emergent Contact Non-Emergency issues call your: Primary Care Provider . . "Provider Documentation" section prepared by Shine Orosco. . [employer]er Recommendations [employer]er Recommendations: No heavy lifting over 20 pounds for 4 weeks No strenuous activity until cleared by surgeon No submerging incisions underwater for 2 weeks (no bathing, swimming, or hot tubs) No driving while taking narcotic pain medication or until you are pain free You may shower when you get home. Take off outer dressings and replace as needed. Leave steri strips on incisions for 7 days and then remove. They may fall off on their own that is okay. you do not need to replace them Walking and light activity is encouraged to prevent blood clots from forming You will be given narcotic pain medication as needed for moderate to severe pain. This medication may make you drowsy and can cause constipation. To combat constipation, you may take OTC stool softener such as Colace, gentle laxative, prune juice, and drink plenty of water You may take extra strength Tylenol as needed for mild pain Follow-up in surgical office in 1 week, please call office at [phone] to make an appointment
== END 2017-12-04 15:02 | disposition home health service (06) | DRG 417 ==
LOC: C.EDB 15:50 → C.2T 21:51 → ENRESERV 22:03 → CANRESERV 11-30 16:39 → EDBEDREQSVC 11-30 16:48 → ENRESERV 11-30 16:54 → C.MSN 11-30 17:59
PROVIDERS: ADMIT Internal Medicine; ATTEND Internal Medicine
PROC: 0FT44ZZ Resection of Gallbladder, Percutaneous Endoscopic Approach (ICD-10-PCS; principal; 2017-11-27)
DX: K80.00 Calculus of gallbladder with acute cholecystitis without obstruction (principal); K85.90 Acute pancreatitis without necrosis or infection, unspecified; K85.10 Biliary acute pancreatitis without necrosis or infection; I50.30 Unspecified diastolic (congestive) heart failure; Z82.49 Family history of ischemic heart disease and other diseases of the circulatory system; Z79.82 Long term (current) use of aspirin; Z88.2 Allergy status to sulfonamides; Z88.5 Allergy status to narcotic agent; Z88.6 Allergy status to analgesic agent; Z88.1 Allergy status to other antibiotic agents; J45.909 Unspecified asthma, uncomplicated; I10 Essential (primary) hypertension; E03.9 Hypothyroidism, unspecified; E78.5 Hyperlipidemia, unspecified; K44.9 Diaphragmatic hernia without obstruction or gangrene; K21.9 Gastro-esophageal reflux disease without esophagitis; N18.3 Chronic kidney disease, stage 3 (moderate)

== ENCOUNTER 2022-05-23 13:06 | Inpatient (IN) ==
[2022-05-23] MEDS ORDERED: SODIUM CHLORIDE 0.9% 500 ML IV STA (13:50)
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
[2022-05-23 14:04] LABS: Basophils # (auto) 0.04 K/uL (0-0.2); Basophils % (auto) 0.5 %; Eosinophils # (auto) 0.01 K/uL (0-0.50); Eosinophils % (auto) 0.1 %; Hematocrit (blood only) 39.6 % (34.1-44.9); Hemoglobin 13.8 g/dl (12.0-16.0); Immature Granulocytes # (auto) 0.03 K/uL (0.00-0.02); Immature Granulocytes % (auto) 0.4 %; Lymphocytes # (auto) 1.43 K/uL (1.2-3.4); Lymphocytes % (auto) 18.8 %; Mean Corpuscular Hemoglobin 31.9 pg (25.0-34.0); Mean Corpuscular Hgb Conc 34.8 g/dL (32.0-36.0); Mean Corpuscular Volume 91.7 fL (80.0-100.0); Monocytes # (auto) 1.18 K/uL (0.24-0.82); Monocytes % (auto) 15.5 %; Neutrophils # (auto) 4.92 K/uL (1.4-6.5); Neutrophils % (auto) 64.7 %; Platelet Count 198 K/uL (130-400); RDW Coefficient of Variation 13.5 % (11.5-14.5); RDW Standard Deviation 45.9 fL (36.4-46.3); Red Blood Count 4.32 M/uL (3.93-5.22); White Blood Count 7.61 K/ul (4.8-10.8)
[2022-05-23 14:24] LABS: Albumin Globulin Ratio 1.4 (0.9-2); Albumin Level 3.6 gm/dl (3.4-5.0); BUN Creatinine Ratio 17.3 (10-20); Bilirubin,Total 0.6 mg/dl (0.2-1.0); Calcium 8.4 mg/dl (8.5-10.1); Creatinine Clr Calc Pharmacy 34.6 ml/min; Est GFR (African American) 55.9 ml/min; Est GFR (Non-African American) 48.3 ml/min; Globulin 2.6 gm/dl (2.5-4.0); Potassium 3.4 mmol/L (3.5-5.1); Total Protein 6.2 gm/dl (6.0-8.3)
--- NOTE | 2022-05-23 14:29 | XRay Report ---
SINGLE VIEW CHEST CLINICAL HISTORY: Cough FINDINGS: An AP, portable, upright chest radiograph is compared to study dated 05/17/2018. The examina tion is degraded by portable technique and apical lordotic positioning. The heart is enlarged. The pu lmonary vasculature is noncongested. Chronic elevation of the right hemidiaphragm is similar to previ ous. Scarring/atelectasis is noted at the lung bases. The lungs and pleural spaces are otherwise vu r. No pneumothorax is seen. The skeletal structures are osteopenic. The bony thorax is grossly intact . Arthritic change is seen in the shoulders. Cholecystectomy clips are noted in the right upper quadr ant. IMPRESSION: Cardiomegaly with no active disease in the chest. ACT 112: Negative or not required by law. Electronically signed by: Robert Griffith M.D. 05/23/2022 2:28 PM
[2022-05-23 14:30] LABS: Troponin I High Sensitivity 23.9 pg/ml (0-14)
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
[2022-05-23 16:53] LABS: Appearance Urine Clear (Clear); Bacteria Urine Automated Negative (Negative); Bilirubin Urine Negative (Negative); Blood Urine Trace (Negative); Color Urine Yellow; Epithelial Cell Urine Auto 20-30 /lpf (0-5); Glucose Urine UA Negative (Negative); Ketones Urine 1+ (Negative); Leukocyte Esterase Urine Trace (Negative); Nitrite Urine Negative (Negative); Protein Urine Negative (Negative); RBC Urine Automated 0-4 /hpf (0-4); Specific Gravity Urine 1.011 (1.000-1.030); Urobilinogen Urine Negative (Negative); pH Urine 5.5 (4.5-7.5)
[2022-05-23] MEDS ORDERED: METOPROLOL TARTRATE 25 MG TAB PO ONE (17:13)
[2022-05-23] MEDS ORDERED: METOPROLOL TARTRATE 50 MG TAB PO STA (17:23)
--- NOTE | 2022-05-23 18:01 | Electrocardiogram Report ---
Test Reason : Blood Pressure : / mmHG Vent. Rate : 113 BPM Atrial Rate : 113 BPM P-R Int : 164 ms QRS Dur : 122 ms QT Int : 376 ms P-R-T Axes : 023 -56 074 degrees QTc Int : 515 ms Sinus tachycardia with Premature atrial complexes Left axis deviation Non-specific intra-ventricular conduction delay Abnormal ECG When compared with ECG of 17-MAY-2018 03:52, No significant change was found Confirmed by Jayce Ash ([id number]) on 05/23/2022 6:01:33 PM Referred By: Confirmed By:Fernando Ash
[2022-05-23] MEDS ORDERED: ACETAMINOPHEN 325 MG TAB PO PRN (20:50)
[2022-05-23] MEDS ORDERED: ONDANSETRON INJ 2 MG/ML 2 ML VIAL IV PRN (20:50)
[2022-05-23] MEDS ORDERED: ALBUTEROL HFA 8 GM INHALER INH PRN (20:50)
[2022-05-23] MEDS ORDERED: SODIUM CHLORIDE 0.9% 1000ML 1,000 ML IV SCH (20:50)
[2022-05-23] MEDS ORDERED: ATORVASTATIN 20 MG TAB PO SCH (21:00)
[2022-05-23] MEDS ORDERED: MONTELUKAST SODIUM 10 MG TABLET PO SCH (21:00)
[2022-05-23] MEDS ORDERED: GABAPENTIN 100 MG CAP PO SCH (21:00)
[2022-05-24 03:10] LABS: Hematocrit (blood only) 44.1 % (34.1-44.9); Hemoglobin 14.9 g/dl (12.0-16.0); Mean Corpuscular Hemoglobin 31.9 pg (25.0-34.0); Mean Corpuscular Hgb Conc 33.8 g/dL (32.0-36.0); Mean Corpuscular Volume 94.4 fL (80.0-100.0); Mean Platelet Volume 9.7 fL (9.4-12.3); Platelet Count 213 K/uL (130-400); RDW Coefficient of Variation 13.7 % (11.5-14.5); RDW Standard Deviation 47.4 fL (36.4-46.3); Red Blood Count 4.67 M/uL (3.93-5.22); White Blood Count 6.68 K/ul (4.8-10.8)
[2022-05-24 03:22] LABS: Adenovirus F 40/41 PCR Not Detected (NotDetected); Astrovirus PCR Not Detected (NotDetected); Campylobacter PCR Not Detected (NotDetected); Clostridium diff Toxin A/B PCR Not Detected (NotDetected); Cryptosporidium PCR Not Detected (NotDetected); Cyclospora cayetanensis PCR Not Detected (NotDetected); Entamoeba histolytica PCR Not Detected (NotDetected); Enteroaggregative E.coli(EAEC) Not Detected (NotDetected); Enteropathogenic E.coli (EPEC) Not Detected (NotDetected); Enterotoxigenic E.coli (ETEC) Not Detected (NotDetected); Giardia lamblia PCR Not Detected (NotDetected); Norovirus GI/GII PCR Not Detected (NotDetected); Plesiomonas shigelloides PCR Not Detected (NotDetected); Rotavirus A PCR Not Detected (NotDetected); Salmonella PCR Not Detected (NotDetected); Sapovirus PCR Not Detected (NotDetected); Shiga-like Toxin E.coli (STEC) Not Detected (NotDetected); Shigella/Enteroinvasive E.coli Not Detected (NotDetected); Vibrio cholerae PCR Not Detected (NotDetected); Vibrio species PCR Not Detected (NotDetected); Yersinia enterocolitica PCR Not Detected (NotDetected)
[2022-05-24 03:40] LABS: Albumin Globulin Ratio 1.4 (0.9-2); Albumin Level 3.9 gm/dl (3.4-5.0); BUN Creatinine Ratio 18.5 (10-20); Bilirubin,Total 0.6 mg/dl (0.2-1.0); Calcium 8.4 mg/dl (8.5-10.1); Creatinine Clr Calc Pharmacy 39.1 ml/min; Est GFR (African American) 64.9 ml/min; Globulin 2.8 gm/dl (2.5-4.0); Magnesium 1.8 mg/dl (1.7-2.4); Potassium 3.4 mmol/L (3.5-5.1); Total Protein 6.7 gm/dl (6.0-8.3)
[2022-05-24] MEDS ORDERED: LEVOTHYROXINE SODIUM 88 MCG TABLET PO SCH (06:30)
[2022-05-24] MEDS ORDERED: CETIRIZINE HCL 10 MG TABLET PO ONE (06:42)
[2022-05-24] MEDS ORDERED: POTASSIUM CHLORIDE CRTAB 20 MEQ TABCR PO STA (07:50)
[2022-05-24] MEDS ORDERED: CEROVITE ADV FORMULA TAB PO SCH (09:00)
[2022-05-24] MEDS ORDERED: FLUTICASONE PROPIONATE NA SPR 16 GM BTL SCH (09:00)
[2022-05-24] MEDS ORDERED: ASPIRIN 81 MG ECTAB PO SCH (09:00)
[2022-05-24] MEDS ORDERED: allopurinoL 100 MG TAB PO SCH (09:00)
[2022-05-24] MEDS ORDERED: FAMOTIDINE 20 MG TAB PO SCH (09:00)
[2022-05-24] MEDS ORDERED: dexAMETHasone 6 MG in SYRINGE 0 ML IV SCH (09:00)
[2022-05-24] MEDS ORDERED: TELMISARTAN 40 MG TAB PO SCH (09:00)
[2022-05-24] MEDS ORDERED: METOPROLOL SUCC 50MG EXT REL TAB PO SCH (09:00)
[2022-05-24] MEDS ORDERED: PANTOprazole 40 MG TAB PO SCH (09:00)
[2022-05-24] MEDS ORDERED: GABAPENTIN 100 MG CAP PO SCH (09:00)
[2022-05-24] MEDS ORDERED: ENOXAPARIN INJ 40 MG/0.4 ML SYR SQ SCH (09:00)
[2022-05-24] MEDS: MAGNESIUM OXIDE 400 MG TAB PO SCH ×2 (09:11→15:02)
[2022-05-24] MEDS ORDERED: POTASSIUM CHLORIDE CRTAB 20 MEQ TABCR PO ONE (09:51)
--- NOTE | 2022-05-24 15:29 | Discharge Summary ---
Date of Service May 24, 2022 Admission HPI Per Admitting Provider This is an 87 yo F with PMhx of CAD, HTN, HLD, diastolic CHF, asthma, chronic back pain, history of right sided breast cancer status post lumpectomy, XRT, CKD stage III, osteoporosis, ARPIT, essential tremor, gout, who presents today with generalized illness which has been ongoing for about 3 days. She reports having nausea, vomiting, diarrhea poor p.o. intake, generalized weakness. She is fatigued and feels worn out. Her who is present at bedside at age 89, is here with portable oxygen tank and has been getting over his own acute illness of COVID19 but she has not been improving. They are both vaccinated and boosted. Pt is complaining of having black and green diarrhea for the past 24 hours multiple times, denies any blood or abdominal pain. Has needed to wear a pad because of fecal incontinence. She admits to having severe nausea on Monday and Monday. It was improved after getting IV medication in EMS on the way here. In the past 2 days, she's only been able to tolerate minimal po intake - 1/4 c of tea and some dry toast today. She admits to lightheadedness, dizziness but states that it is better at time point after getting some fluids in the ER. She is requesting some tea at present. Denies feeling short of breath, but does have a dry cough. She does not wear O2 at baseline. Admission Exam Per Admitting Provider Constitutional: No fever, sweats or chills Eyes: No diplopia, no worsening or blurred vision ENT: normal hearing, no trouble swallowing Respiratory: + cough, no sputum, no dyspnea at rest , + Dyspnea on exertion Cardiovascular: No chest pain, tightness or palpitations Abdomen: No pain, +nausea, + vomiting,+ diarrhea as per HPI, no constipation Musculoskeletal: No joint pain, calf pain, swelling Neurologic: + generalized weakness, no numbness/tingling, + uses a walker at home for balance problems, no recent falls Psychiatric: No anxiety or depression Skin: No rash or itch Principal Diagnosis COVID19 Discharge Exam Constitutional: No fever, sweats or chills Eyes: No diplopia, no worsening or blurred vision ENT: normal hearing, no trouble swallowing Respiratory: + cough, no sputum, no dyspnea at rest , - Dyspnea on exertion Cardiovascular: No chest pain, tightness or palpitations Abdomen: No pain, -nausea, -vomiting, -diarrhea as per HPI, no constipation Musculoskeletal: No joint pain, calf pain, swelling Neurologic: - generalized weakness, no numbness/tingling, + uses a walker at home for balance problems, no recent falls Psychiatric: No anxiety or depression Skin: No rash or itch Discharge Data Allergies Allergy/AdvReac Type Severity Reaction Status Date / Time blue dye Allergy Intermediate RESTLESS Verified 04/12/19 06:47 LEGS diphenhydramine Allergy Intermediate Irritable Verified 04/12/19 06:47 hydrochlorothiazide Allergy Intermediate RENAL Verified 04/12/19 06:47 COMPLICATIONS, HIVES? ibuprofen Allergy Intermediate RESTLESS Verified 04/12/19 06:47 LEGS,RASH? indigotindisulfonic acid Allergy Intermediate RESTLESS Verified 04/12/19 06:47 LEGS,RASH milk Allergy Intermediate Gastrointestinal Verified 04/12/19 06:47 Upset Sulfa (Sulfonamide Allergy Intermediate RASH FROM Verified 04/12/19 06:47 Antibiotics) HEAD TO TOE adhesive Allergy Mild LOCAL SKIN Verified 04/12/19 06:47 IRRITATION celecoxib [From Celebrex] Allergy Mild Hypertensio Verified 04/12/19 06:47 n latex Allergy Mild RASH Verified 04/12/19 06:47 oxycodone Allergy Mild ITCHING Verified 04/12/19 06:47 shellfish derived Allergy Mild Cough Verified 04/12/19 06:47 Cipro AdvReac Intermediate SEVERE Verified 03/17/14 09:56 NAUSEA AND VOMITING ciprofloxacin AdvReac Intermediate SEVERE Verified 04/12/19 06:47 NAUSEA AND VOMITING nitrofurantoin AdvReac Intermediate SEVERE Verified 04/12/19 06:47 NAUSEA AND VOMITING lactose AdvReac Unknown GI SYMPTOMS Verified 04/12/19 06:47 Hospital Course (1) COVID-19: - COVID-19 positive - CXR reviewed and is negative - O2 sats 94% on room air - n/v/d resolved - s/p IVF with improvement in symptoms - WBC 7.61 on admission - Does not qualify for Remdesivir - ok for discharge home as patient is tolerating po and feeling well (2) Nausea & vomiting: - resolved - tolerated diet - breakfast and lunch, without issue (3) Dehydration: - s/p IVF (4) Weakness: - improved with IVF - tolerated diet - PT saw and ok for home (5) Asthma: - Pt does not use Breo inhaler or albuterol inhaler routinely at home - no wheezing or hypoxia (6) CAD (coronary artery disease): - stable, no chest pain (7) Dyslipidemia: - continue home meds (8) Diastolic CHF: - stable, no exacerbation - continue home meds (9) HTN (hypertension): - restart home meds as tolerated (10) Hypothyroidism: - Cont levothyroxine 88 mcg daily (11) GERD (gastroesophageal reflux disease): - Cont PPI (12) Osteoporosis: - cont supplements (13) Chronic kidney disease: - Cr./ BUN 18/1.04, trend with am labs - s/p IVF as above (14) Generalized anxiety disorder: - Stable, not on medication for such. Total Time Total Time Spent Total Time Spent (In Minutes): 21 Total Time Includes: Examination of the Patient, Discharge Planning and Medication Reconciliation Discharge Plan Discharge Items Patient Disposition: Home - Self-Care Reason For Visit: COVID+ Discharge Diagnosis: COVID-19 Activity: Resume your previous activity Non-emergency contact: Primary Care Provider Call non-emergency contact if: you have any medication questions and your symptoms worsen Follow-up/Referrals: Jesika Brown MD [Primary Care Provider] - Diet: Heart Healthy Addtl Attending Provider Instructions: You were admitted with nausea, vomiting, diarrhea, dry cough likely due to COVI19 infection. You never required oxygen and you were given IV hydration. You had improvement in all your symptoms and were able to tolerate a diet well. You were seen by physical therapy who recommended you to return home. Pending Studies at Discharge: No Stand-Alone Forms: [facility] Sm[facility] Cess[facility] Medications and DC Order Prescriptions: New magnesium oxide 400 mg (241.3 mg magnesium) Tablet 400 mg PO TID Qty: 6 0RF Continued atorvastatin 20 mg Tablet 20 mg PO HS Qty: 0 pantoprazole 40 mg Tablet,Delayed Release (Dr/Ec) 40 mg PO QAM Qty: 0 montelukast 10 mg Tablet 10 mg PO HS Qty: 0 gabapentin 100 mg Capsule 100 mg PO QAM Qty: 0 metoprolol succinate 50 mg Tablet Extended Release 24 Hr 50 mg PO QAM Qty: 0 telmisartan 80 mg Tablet 80 mg PO QAM Qty: 0 albuterol sulfate [ProAir HFA] 90 mcg/actuation Hfa Aerosol Inhaler 2 puff Inhalation Q4 PRN (Reason: Shortness Of Breath) Qty: 0 fluticasone propionate 50 mcg/actuation [place],Suspension 2 spray INTRANASAL QAM Qty: 0 furosemide 20 mg Tablet 20 mg PO 3XWK PRN (Reason: swelling) Qty: 0 Rx Instructions: Take on MWF and then prn for weight gain Women's Multivitamin Gummies 200 mcg Tablet,Chewable 1 tab PO QAM polyethylene glycol 3350 [Miralax] 17 gram/dose Powder 1 dose PO QAM allopurinol 100 mg Tablet 50 mg PO QAM aspirin 81 mg Tablet,Delayed Release (Dr/Ec) 81 mg PO QAM levothyroxine 88 mcg tablet 88 mcg PO DAILY famotidine 20 mg tablet 20 mg PO DAILY gabapentin 100 mg capsule 200 mg PO QPM tizanidine 2 mg tablet 2 mg PO Q8H PRN (Reason: Muscle Spasm) fluticasone furoate-vilanterol [Breo Ellipta] 200-25 mcg/dose blister with device INHALATION DAILY Discharge Orders: Discharge Order (Routine); Ordered 05/24/22 Ordered By: Michael Campos Admission Data Admit Date/Time: 05/23/22 15:50 Attending Provider: Michael Campos Admit Provider: Kale Ramírez Primary Care Provider: Jesika Brown Other Interventions: Discharge Summary Assessment (RN) Last Done: 05/24/22 15:02
--- NOTE | 2022-05-24 16:16 | Electrocardiogram Report ---
Test Reason : Blood Pressure : / mmHG Vent. Rate : 098 BPM Atrial Rate : 098 BPM P-R Int : 180 ms QRS Dur : 118 ms QT Int : 380 ms P-R-T Axes : 058 -68 042 degrees QTc Int : 485 ms Sinus rhythm with Premature atrial complexes Left axis deviation Inferior infarct , age undetermined Anterolateral infarct , age undetermined Abnormal ECG When compared with ECG of 23-MAY-2022 13:16, Left bundle branch block is no longer Present Anterior infarct is now Present Anterolateral infarct is now Present Inferior infarct is now Present Confirmed by Jayce Ash ([id number]) on 05/24/2022 4:15:56 PM Referred By: REFERRED SELF Confirmed By:Fernando Ash
== END 2022-05-24 16:10 | disposition home or self-care (01) | DRG 178 ==
LOC: ED 13:06 → EDINP 15:50 → 2W 15:50 → SUATTDRO 15:50 → 2W 20:02
DX: Z92.3 Personal history of irradiation; I50.32 Chronic diastolic (congestive) heart failure; Z79.899 Other long term (current) drug therapy; Z79.890 Hormone replacement therapy; Z88.6 Allergy status to analgesic agent; E86.0 Dehydration; M81.0 Age-related osteoporosis without current pathological fracture; K21.9 Gastro-esophageal reflux disease without esophagitis; Z85.3 Personal history of malignant neoplasm of breast; E78.5 Hyperlipidemia, unspecified; Z88.5 Allergy status to narcotic agent; Z91.013 Allergy to seafood; E03.9 Hypothyroidism, unspecified; I13.0 Hypertensive heart and chronic kidney disease with heart failure and stage 1 through stage 4 chronic kidney disease, or unspecified chronic kidney disease; J45.909 Unspecified asthma, uncomplicated; U07.1 COVID-19; Z91.048 Other nonmedicinal substance allergy status; F41.1 Generalized anxiety disorder; M10.9 Gout, unspecified; Z88.8 Allergy status to other drugs, medicaments and biological substances; I25.10 Atherosclerotic heart disease of native coronary artery without angina pectoris; Z91.011 Allergy to milk products; Z88.2 Allergy status to sulfonamides; Z91.040 Latex allergy status; Z88.1 Allergy status to other antibiotic agents; N18.30 Chronic kidney disease, stage 3 unspecified; Z79.82 Long term (current) use of aspirin

== ENCOUNTER 2022-05-29 17:45 | Inpatient (IN) ==
[2022-05-29] MEDS ORDERED: cefTRIAXone SODIUM 1,000 MG/50 ML BAG IV STA (18:00)
[2022-05-29] MEDS ORDERED: SODIUM CHLORIDE 0.9% 1000ML 500 ML IV SCH (18:00)
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
[2022-05-29 18:09] LABS: Basophils # (auto) 0.02 K/uL (0-0.2); Basophils % (auto) 0.2 %; Eosinophils # (auto) 0.09 K/uL (0-0.50); Eosinophils % (auto) 1.1 %; Hemoglobin 13.1 g/dl (12.0-16.0); Immature Granulocytes # (auto) 0.04 K/uL (0.00-0.02); Immature Granulocytes % (auto) 0.5 %; Lymphocytes # (auto) 2.15 K/uL (1.2-3.4); Lymphocytes % (auto) 25.6 %; Mean Corpuscular Hemoglobin 31.7 pg (25.0-34.0); Mean Corpuscular Hgb Conc 33.6 g/dL (32.0-36.0); Mean Corpuscular Volume 94.4 fL (80.0-100.0); Mean Platelet Volume 9.8 fL (9.4-12.3); Monocytes # (auto) 0.95 K/uL (0.24-0.82); Monocytes % (auto) 11.3 %; Neutrophils # (auto) 5.16 K/uL (1.4-6.5); Neutrophils % (auto) 61.3 %; Platelet Count 235 K/uL (130-400); RDW Coefficient of Variation 13.7 % (11.5-14.5); RDW Standard Deviation 47.4 fL (36.4-46.3); Red Blood Count 4.13 M/uL (3.93-5.22); White Blood Count 8.41 K/ul (4.8-10.8)
[2022-05-29 18:29] LABS: Albumin Level 3.4 gm/dl (3.4-5.0); BUN Creatinine Ratio 12.5 (10-20); Bilirubin Direct 0.1 mg/dl (0-0.2); Bilirubin,Total 0.6 mg/dl (0.2-1.0); Calcium 8.6 mg/dl (8.5-10.1); Creatinine Clr Calc Pharmacy 32.5 ml/min; Est GFR (African American) 51.2 ml/min; Est GFR (Non-African American) 44.1 ml/min; Magnesium 1.9 mg/dl (1.7-2.4); Potassium 4.4 mmol/L (3.5-5.1); Total Protein 6.4 gm/dl (6.0-8.3)
--- NOTE | 2022-05-29 18:50 | XRay Report ---
XR chest 1V portable HISTORY: 87 years-old Female Sepsis acute sepsis COMPARISON: 05/23/2022 TECHNIQUE: AP view of the chest FINDINGS: Cardiac silhouette is upper limits of normal in size. No pneumothorax, pleural effusion or overt pulm onary edema. Unchanged right hemidiaphragmatic elevation. Mild subsegmental bibasilar atelectasis. Th e bones appear grossly intact. IMPRESSION: Cardiomegaly with unchanged right hemidiaphragmatic elevation. ACT 112: Negative or not required by law. The above report was generated using voice recognition software. It may contain grammatical, syntax o r spelling errors. Electronically signed by: Huseyin Jaime M.D. 05/29/2022 6:49 PM
[2022-05-29 19:50] LABS: Appearance Urine Clear (Clear); Bacteria Urine Automated 1+ (Negative); Bilirubin Urine Negative (Negative); Blood Urine Trace (Negative); Color Urine Yellow; Epithelial Cell Urine Auto 0-5 /lpf (0-5); Glucose Urine UA Negative (Negative); Ketones Urine Negative (Negative); Leukocyte Esterase Urine 2+ (Negative); Nitrite Urine Positive (Negative); Protein Urine Trace (Negative); RBC Urine Automated 0-4 /hpf (0-4); Specific Gravity Urine 1.007 (1.000-1.030); Urobilinogen Urine Negative (Negative); WBC Urine Automated >30 /hpf (0-5); pH Urine 6.5 (4.5-7.5)
[2022-05-29] MEDS ORDERED: ACETAMINOPHEN 325 MG TAB PO STA (20:14)
[2022-05-29] MEDS ORDERED: METOPROLOL SUCC 25MG EXT REL TAB PO STA (20:37)
[2022-05-29 21:15] LABS: Influenza A virus by PCR Negative (Neg); Influenza B virus by PCR Negative (Neg); RSV by PCR Negative (Neg)
[2022-05-29 21:28] LABS: SARS CoV2 RNA(COVID-19) InHosp POSITIVE (Negative)
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
[2022-05-29] MEDS ORDERED: SODIUM CHLORIDE 0.9% 1000ML 1,000 ML IV ONE (22:41)
[2022-05-29] MEDS ORDERED: ACETAMINOPHEN W/CODEINE #3 1 TAB PO PRN (23:11)
[2022-05-30] MEDS ORDERED: ACETAMINOPHEN 325 MG TAB PO PRN (00:07)
[2022-05-30] MEDS ORDERED: CETIRIZINE HCL 10 MG TABLET PO PRN (00:07)
[2022-05-30] MEDS ORDERED: tiZANidine HCL 4 MG TABLET PO PRN (00:07)
[2022-05-30] MEDS ORDERED: PROMETHAZINE HCL 12.5 MG in SODIUM CHLORIDE 0.9% 50 ML IV PRN (00:07)
[2022-05-30] MEDS: GABAPENTIN 100 MG CAP PO SCH ×3 (01:09→20:50)
[2022-05-30] MEDS: LEVOTHYROXINE SODIUM 88 MCG TABLET PO SCH (05:31)
--- NOTE | 2022-05-30 07:15 | CT Scan Report ---
HEAD CT NONCONTRAST CT DOSE: 537.48 mGy.cm HISTORY: Headache. TECHNIQUE: Multiaxial CT images of the head were performed without the use of intravenous contrast. A utomated exposure control was utilized for this study. A dose lowering technique was utilized adheri ng to the principles of ALARA. Comparison: Head CT 05/18/2009. Findings: Mild mucosal thickening within the ethmoid air cells. The mastoid air cells are clear. The calvarium and skull base are intact. There is no mass, hematoma, midline shift, acute infarct. White matter hypodensity is nonspecific but suggestive of microvascular ischemic change. The ventricles and sulci demonstrate mild age-related involutional changes. Impression: No acute intracranial abnormality. ACT 112: Negative or not required by law. Electronically signed by: Bola Henry M.D. 05/30/2022 7:14 AM
[2022-05-30] MEDS: allopurinoL 100 MG TAB PO SCH (07:56)
[2022-05-30] MEDS: ASPIRIN 81 MG ECTAB PO SCH (07:56)
[2022-05-30] MEDS: CEROVITE ADV FORMULA TAB PO SCH (07:56)
[2022-05-30] MEDS: ATORVASTATIN 20 MG TAB PO SCH (07:57)
[2022-05-30] MEDS: FAMOTIDINE 20 MG TAB PO SCH (07:57)
[2022-05-30] MEDS: ENOXAPARIN INJ 40 MG/0.4 ML SYR SQ SCH (08:01)
[2022-05-30] MEDS: PANTOprazole 40 MG TAB PO SCH (08:01)
[2022-05-30] MEDS: METOPROLOL SUCC 50MG EXT REL TAB PO SCH (08:01)
[2022-05-30] MEDS: TELMISARTAN 40 MG TAB PO SCH (08:02)
[2022-05-30] MEDS: FLUTICASONE PROPIONATE NA SPR 16 GM BTL SCH (08:02)
[2022-05-30 08:04] LABS: Basophils # (auto) 0.02 K/uL (0-0.2); Basophils % (auto) 0.3 %; Eosinophils # (auto) 0.22 K/uL (0-0.50); Eosinophils % (auto) 3.4 %; Hematocrit (blood only) 37.1 % (34.1-44.9); Hemoglobin 12.7 g/dl (12.0-16.0); Immature Granulocytes # (auto) 0.02 K/uL (0.00-0.02); Immature Granulocytes % (auto) 0.3 %; Lymphocytes # (auto) 1.75 K/uL (1.2-3.4); Lymphocytes % (auto) 27.3 %; Mean Corpuscular Hemoglobin 31.6 pg (25.0-34.0); Mean Corpuscular Hgb Conc 34.2 g/dL (32.0-36.0); Mean Corpuscular Volume 92.3 fL (80.0-100.0); Monocytes # (auto) 0.64 K/uL (0.24-0.82); Neutrophils # (auto) 3.75 K/uL (1.4-6.5); Neutrophils % (auto) 58.7 %; Platelet Count 228 K/uL (130-400); RDW Coefficient of Variation 13.8 % (11.5-14.5); RDW Standard Deviation 47.4 fL (36.4-46.3); Red Blood Count 4.02 M/uL (3.93-5.22)
--- NOTE | 2022-05-30 08:27 | CT Scan Report ---
ABDOMEN AND PELVIS CT WITHOUT CONTRAST CT DOSE: 404.65 mGy.cm HISTORY: Acute dysuria dysuria, eval for stone/hydro TECHNIQUE: Multiaxial CT images of the abdomen and pelvis were performed without contrast. A dose lo wering technique was utilized adhering to the principles of ALARA. COMPARISON STUDY: CT abdomen and pelvis 05/17/2018 FINDINGS: Cardiomegaly with coronary artery calcifications. No pericardial effusion. Numerous bibasil ar ill-defined pulmonary nodules measure up to 4 mm. Most of these appear stable from prior. No pneum atosis or pneumoperitoneum. Unenhanced spleen, pancreas and adrenal glands are unremarkable. Cholecys tectomy. Unremarkable liver. Probable cyst of the inferior pole right kidney, 1.6 cm. No renal or ureteral calculi or hydronephros is. Urinary bladder wall thickening with perivesicular stranding. Subcentimeter calcification of the uterine fundus. Atherosclerosis of the aorta. No lymphadenopathy. Tiny hiatal hernia. There is no bowel obstruction or bowel wall thickening. Colonic diverticulosis. M ild colonic fecal retention. No CT evidence of acute appendicitis. Unremarkable soft tissues. Degener ative changes of the spine, pelvis and hips. Severe osteoarthritis of the right hip. Posterior interb jessica yariel and screw fusion at L3-L5 with L4-L5 discectomy. Grade 1 retrolisthesis L1 on L2 and L2 on L3 . IMPRESSION: 1. No renal or ureteral calculi or hydronephrosis. 2. No bowel obstruction or bowel wall thickening. 3. Colonic diverticulosis. 4. Severe right hip osteoarthritis. 5. Numerous bibasilar ill-defined solid pulmonary nodules measuring up to 4 mm are favored to be infe ctious or inflammatory. ACT 112: Negative or not required by law. The above report was generated using voice recognition software. It may contain grammatical, syntax o r spelling errors. Electronically signed by: Huseyin Jaime M.D. 05/30/2022 8:25 AM
[2022-05-30 08:40] LABS: BUN Creatinine Ratio 14.9 (10-20); Calcium 8.4 mg/dl (8.5-10.1); Creatinine Clr Calc Pharmacy 37.3 ml/min; Est GFR (African American) 63.2 ml/min; Est GFR (Non-African American) 54.5 ml/min; Potassium 4.3 mmol/L (3.5-5.1)
--- NOTE | 2022-05-30 12:12 | Hospitalist Progress Note ---
Date of Service May 30, 2022 Assessment & Plan (1) Complicated UTI (urinary tract infection): Plan: Per admitting service notes with addendum: Suspected UTI Urine culture: Negative so far Clinically seems to be improving Continue ceftriaxone IV COVID-19 infection Possible acute bronchitis, secondary bacterial infection History of bronchial asthma Chest x-ray: No pneumonia Currently on room air Check sputum culture, repeat chest x-ray in the morning Not a candidate for remdesivir due to timeline Start hypertonic saline nebs, Mucinex, incentive spirometry, flutter valve Start doxycycline 90 mg p.o. twice daily Start prednisone 40 mg p.o. daily Diarrhea --Resolving Stool cultures pending Hypertensive urgency --BP improving chronic diastolic heart failure (EF 60 to 65%, TTE 2021), patient on the dry side hx CAD/chronic LBBB hyperlipidemia on statin Rx bronchial asthma not in acute exacerbation Right breast cancer status post surgery/radiation/Tamoxifen Rx, currently in remission hypothyroidism, euthyroid as of recent TSH Deconditioning PT OT eval DVT prophylaxis. Lovenox subcu Full code stool Disposition PT OT pending evaluation Lives at home plan of care discussed with patient in detail and at length all questions answered she is understanding, agreeable, comfortable with the plan of care Admission and Anticipated Discharge Date Admission Date: May 29, 2022 Subjective Follow-up for weakness, UTI, COVID-19 infection, etc. Seen resting in bed, comfortable, not in distress, in good spirits States that she feels improved today compared to yesterday Has productive cough, yellow sputum, no shortness of breath, no chest pain Has polyuria, but no dysuria or abdominal pain Does report chills at home No leg pain No other symptoms Review of Systems Review of Systems: all noted and negative except for above Physical Exam Physical Exam: General- oriented x 3, not in distress, speaks in sentences with no effort or accessory muscle use Eyes- anicteric Neck- no JVD Lungs-mild crackles at the right mid to base, no wheezing Clear on the left Heart- normal rate, regular rhythm; no murmurs Abdomen- normal bowel sounds, nondistended, soft, nontender No suprapubic tenderness, no CVA tenderness next Extremities- no pretibial edema, no calf tenderness Neuro- alert, oriented x 3; no gross focal neurologic deficits Skin- warm & dry Results & Data Results & Data ([facility]) Vital Signs (Past 12 Hours) Vital Signs Temp Pulse Pulse Resp BP Pulse Ox O2 Del Method 05/30/22 10:41 36.9 C 63 18 135/78 96 Room Air 05/30/22 09:40 68 05/30/22 09:05 Room Air 05/30/22 07:55 36.9 C 63 20 129/78 94 Room Air 05/30/22 04:00 36.3 C L 91 H 20 99/63 L 91 Room Air all noted and reviewed including below
[2022-05-30] MEDS: DOXYCYCLINE HYCLATE 100 MG CAP PO SCH ×2 (12:45→20:49)
[2022-05-30] MEDS ORDERED: HYDROCORTISONE HC 2.5% CRM 30GM TUBE EXT PRN (14:03)
--- NOTE | 2022-05-30 15:18 | Electrocardiogram Report ---
Test Reason : Blood Pressure : / mmHG Vent. Rate : 069 BPM Atrial Rate : 069 BPM P-R Int : 144 ms QRS Dur : 120 ms QT Int : 446 ms P-R-T Axes : 046 -63 018 degrees QTc Int : 477 ms Normal sinus rhythm Left axis deviation Inferior infarct (cited on or before 24-MAY-2022) Anterolateral infarct (cited on or before 24-MAY-2022) Abnormal ECG When compared with ECG of 24-MAY-2022 13:25, Premature atrial complexes are no longer Present Confirmed by Celestino Mendoza ([id number]) on 05/30/2022 3:18:46 PM Referred By: REFERRED SELF Confirmed By:Celestino Mendoza
[2022-05-30] MEDS ORDERED: cefTRIAXone SODIUM 2,000 MG/70 ML BAG IV SCH (18:00)
[2022-05-30] MEDS: SODIUM CHLOR 7% 4 ML NEB NEB SCH (19:51)
[2022-05-30] MEDS: guaiFENesin 600 MG TABCR PO SCH (20:49)
[2022-05-30] MEDS: MONTELUKAST SODIUM 10 MG TABLET PO SCH (20:49)
[2022-05-31] MEDS: LEVOTHYROXINE SODIUM 88 MCG TABLET PO SCH (05:40)
[2022-05-31] MEDS: SODIUM CHLOR 7% 4 ML NEB NEB SCH (07:05)
[2022-05-31] MEDS: DOXYCYCLINE HYCLATE 100 MG CAP PO SCH ×2 (08:17→21:09)
[2022-05-31] MEDS: ENOXAPARIN INJ 40 MG/0.4 ML SYR SQ SCH (08:17)
[2022-05-31] MEDS: GABAPENTIN 100 MG CAP PO SCH ×2 (08:17→21:09)
[2022-05-31] MEDS: METOPROLOL SUCC 50MG EXT REL TAB PO SCH (08:17)
[2022-05-31] MEDS: PANTOprazole 40 MG TAB PO SCH (08:18)
[2022-05-31] MEDS: CEROVITE ADV FORMULA TAB PO SCH (08:18)
[2022-05-31] MEDS: FAMOTIDINE 20 MG TAB PO SCH (08:18)
[2022-05-31] MEDS: TELMISARTAN 40 MG TAB PO SCH (08:18)
[2022-05-31] MEDS: guaiFENesin 600 MG TABCR PO SCH ×2 (08:18→21:09)
[2022-05-31] MEDS: allopurinoL 100 MG TAB PO SCH (08:19)
[2022-05-31] MEDS: ASPIRIN 81 MG ECTAB PO SCH (08:19)
[2022-05-31] MEDS: FLUTICASONE PROPIONATE NA SPR 16 GM BTL SCH (08:20)
--- NOTE | 2022-05-31 08:47 | XRay Report ---
XR chest 1V portable HISTORY: Follow-up COVID bronchitis COMPARISON: Chest 05/29/2022. FINDINGS: No pneumothorax. No pleural effusions. Chronic elevation of the right hemidiaphragm again n oted. The heart remains enlarged. No new focal lung consolidations to suggest pneumonia. No evidence for pulmonary edema. Bibasilar subsegmental atelectasis again noted. IMPRESSION: No significant change compared to the prior study. No acute process. ACT 112: Negative or not required by law. Electronically signed by: Bola Henry M.D. 05/31/2022 8:45 AM
[2022-05-31] MEDS ORDERED: LOPERAMIDE HCL 2 MG CAP PO PRN (16:00)
--- NOTE | 2022-05-31 18:04 | Hospitalist Progress Note ---
Date of Service May 31, 2022 Assessment & Plan (1) COVID: (2) Weakness: Plan: COVID-19 infection Possible acute bronchitis, secondary bacterial infection History of bronchial asthma Patient admitted recently from May 23 to May for 4 COVID-19 infection Readmitted for weakness, cough, diarrhea Chest x-ray: No pneumonia Currently on room air Repeat chest x-ray: No signs of pneumonia Sputum culture: Pending Not a candidate for remdesivir due to timeline Clinically improving, coughing less Continue hypertonic saline nebs, Mucinex, incentive spirometry, flutter valve doxycycline 100 mg p.o. twice daily day #2 Diarrhea --Stool for C. difficile negative Stool panel May 24, 2022 negative -- Imodium as needed UTI ruled out Urine culture: Negative Discontinue ceftriaxone Hypertensive urgency --Continue usual metoprolol, telmisartan As needed hydralazine chronic diastolic heart failure (EF 60 to 65%, TTE 2021), patient on the dry side hx CAD/chronic LBBB hyperlipidemia on statin Rx Right breast cancer status post surgery/radiation/Tamoxifen Rx, currently in remission hypothyroidism, euthyroid as of recent TSH Deconditioning PT OT eval DVT prophylaxis. Lovenox subcu Full code stool Disposition PT OT pending evaluation Lives at home plan of care discussed with patient in detail and at length all questions answered she is understanding, agreeable, comfortable with the plan of care Admission and Anticipated Discharge Date Admission Date: May 30, 2022 Subjective Follow-up for COVID-19 infection, weakness, diarrhea, etc. Seen resting in bed, comfortable, watching TV States she feels improved today compared to yesterday Breathing is improving coughing is less, no chest pain, fevers or chills Having diarrhea 3-4 bowel movements, loose, nonbloody today Mild abdominal discomfort No nausea or vomiting Would like to advance diet No urinary symptoms No other symptom Review of Systems Review of Systems: all noted and negative except for above Physical Exam Physical Exam: General- oriented x 3, not in distress, speaks in sentences with no effort or accessory muscle use Eyes- anicteric Neck- no JVD Lungs- clear breath sounds bilaterally, no crackles or wheezing noted Heart- normal rate, regular rhythm; no murmurs Abdomen- normal bowel sounds, nondistended, soft, nontender Extremities- no pretibial edema, no calf tenderness Neuro- alert, oriented x 3; no gross focal neurologic deficits Skin- warm & dry Results & Data Results & Data ([facility]) Vital Signs (Past 12 Hours) Vital Signs Temp Pulse Pulse Resp BP Pulse Ox O2 Del Method 05/31/22 16:26 54 L 05/31/22 15:26 36.4 C L 54 L 18 153/80 H 94 Room Air 05/31/22 10:58 36.7 C 62 18 155/84 H 95 Room Air 05/31/22 07:28 36.7 C 62 18 169/83 H 93 Room Air 05/31/22 07:12 70 05/31/22 07:05 72 18 97 Room Air all noted and reviewed including below
[2022-05-31] MEDS ORDERED: hydrALAZINE HCL 20 MG/ML VIAL IV PRN (18:12)
[2022-05-31] MEDS: ATORVASTATIN 20 MG TAB PO SCH (21:09)
[2022-05-31] MEDS: MONTELUKAST SODIUM 10 MG TABLET PO SCH (21:09)
[2022-06-01] MEDS: LEVOTHYROXINE SODIUM 88 MCG TABLET PO SCH (05:43)
[2022-06-01 07:20] LABS: Basophils # (auto) 0.04 K/uL (0-0.2); Basophils % (auto) 0.6 %; Eosinophils # (auto) 0.19 K/uL (0-0.50); Eosinophils % (auto) 2.7 %; Hematocrit (blood only) 37.9 % (34.1-44.9); Hemoglobin 12.7 g/dl (12.0-16.0); Immature Granulocytes # (auto) 0.05 K/uL (0.00-0.02); Immature Granulocytes % (auto) 0.7 %; Lymphocytes # (auto) 1.76 K/uL (1.2-3.4); Lymphocytes % (auto) 25.1 %; Mean Corpuscular Hemoglobin 31.4 pg (25.0-34.0); Mean Corpuscular Hgb Conc 33.5 g/dL (32.0-36.0); Mean Corpuscular Volume 93.8 fL (80.0-100.0); Mean Platelet Volume 9.8 fL (9.4-12.3); Monocytes # (auto) 0.74 K/uL (0.24-0.82); Monocytes % (auto) 10.5 %; Neutrophils # (auto) 4.24 K/uL (1.4-6.5); Neutrophils % (auto) 60.4 %; Platelet Count 231 K/uL (130-400); RDW Coefficient of Variation 13.8 % (11.5-14.5); RDW Standard Deviation 47.3 fL (36.4-46.3); Red Blood Count 4.04 M/uL (3.93-5.22); White Blood Count 7.02 K/ul (4.8-10.8)
[2022-06-01 07:46] LABS: BUN Creatinine Ratio 8.5 (10-20); Calcium 8.8 mg/dl (8.5-10.1); Creatinine Clr Calc Pharmacy 37.3 ml/min; Est GFR (African American) 63.2 ml/min; Est GFR (Non-African American) 54.5 ml/min
[2022-06-01] MEDS: DOXYCYCLINE HYCLATE 100 MG CAP PO SCH (09:14)
[2022-06-01] MEDS: guaiFENesin 600 MG TABCR PO SCH (09:14)
[2022-06-01] MEDS: METOPROLOL SUCC 50MG EXT REL TAB PO SCH (09:14)
[2022-06-01] MEDS: ASPIRIN 81 MG ECTAB PO SCH (09:14)
[2022-06-01] MEDS: TELMISARTAN 40 MG TAB PO SCH (09:14)
[2022-06-01] MEDS: allopurinoL 100 MG TAB PO SCH (09:15)
[2022-06-01] MEDS: FLUTICASONE PROPIONATE NA SPR 16 GM BTL SCH (09:15)
[2022-06-01] MEDS: CEROVITE ADV FORMULA TAB PO SCH (09:15)
[2022-06-01] MEDS: FAMOTIDINE 20 MG TAB PO SCH (09:15)
[2022-06-01] MEDS: GABAPENTIN 100 MG CAP PO SCH (09:15)
[2022-06-01] MEDS: PANTOprazole 40 MG TAB PO SCH (09:15)
[2022-06-01] MEDS: ENOXAPARIN INJ 40 MG/0.4 ML SYR SQ SCH (09:15)
--- NOTE | 2022-06-01 16:12 | Discharge Summary ---
Date of Service June 01, 2022 Admission HPI Per Admitting Provider History obtained from patient and records. Medical history significant for chronic diastolic heart failure (EF 60 to 65%, TTE 2021), CAD, chronic LBBB, hypertension, hyperlipidemia, bronchial asthma, right breast cancer status post surgery/radiation/tamoxifen Rx, hypothyroidism, history of seizure secondary to hyponatremia, anxiety disorder. Last confinement 6 days ago for COVID-19 illness presenting as nausea vomiting diarrhea symptoms. Patient stayed overnight. Patient not well upon return home. Achy abdominal pain with worsening watery diarrhea. Dysuria symptoms. Cough symptoms productive of clear sputum. Chest pain, no shortness of breath. Achy headache symptoms. Patient seen at urgent care center today. UA showed was WBC esterase, nitrite positive. Patient directed to ER for evaluation. Patient feels too weak to go home. Medical History as above Surgical History : Partial mastectomy, cataract surgery, cholecystectomy, back surgery, tonsillectomy/adenoidectomy Family History : Lung cancer, colon cancer, Parkinson's disease, stroke Personal/Social history : Non-smoker, no EtOH intake, retired [employer] employee Admission Exam Per Admitting Provider GENERAL: Slightly uncomfortable, pleasant, obese, no respiratory distress SKIN: Normal color, warm HEENT: Mcqueeney palpebral conjunctivae, no ptosis, dry buccal mucosa NECK : Supple, no tenderness CHEST : CTA, no tenderness HEART : RRR, no obvious murmurs ABDOMEN: Some distention, minimal hypogastric tenderness EXTREMITIES : Bilateral LE swelling, no LE tenderness, no other conspicuous deformities noted NEUROLOGIC : Coherent, no facial asymmetry, no other gross focality Principal Diagnosis COVID-19 infection Viral gastroenteritis Discharge Exam Constitutional: WD/WN, vitals as above, NAD, sitting up in bed, pleasant, conversing easily Respiratory: normal respiratory effort, lungs clear to auscultation, no wheeze, rales, rhonchi. Normal insp/exp effort, no accessory muscle use Cardiovascular: RRR, no murmur, no edema Vessels: no JVD or carotid bruit Chest: normal inspection of chest Abdomen: normal bowel sounds, soft, nontender, no hepatosplenomegaly Musculoskeletal: no cyanosis or clubbing, extremities motor strength 5/5 Skin: no rashes, warm and dry normal turgor Neurologic: PERRL, EOMI, accommodation nl, no face palsy, no dysarthria CN's II- XI intact bilaterally and moves all extremities Psychiatric: A+Ox3, euthymic affect Lymphatic: no cervical or axillary lymphadenopathy Discharge Data Allergies Allergy/AdvReac Type Severity Reaction Status Date / Time blue dye Allergy Intermediate RESTLESS Verified 05/29/22 20:00 LEGS diphenhydramine Allergy Intermediate Irritable Verified 05/29/22 20:00 hydrochlorothiazide Allergy Intermediate RENAL Verified 05/29/22 20:00 COMPLICATIONS, HIVES? ibuprofen Allergy Intermediate RESTLESS Verified 05/29/22 20:00 LEGS,RASH? indigotindisulfonic acid Allergy Intermediate RESTLESS Verified 05/29/22 20:00 LEGS,RASH milk Allergy Intermediate Gastrointestinal Verified 05/29/22 20:00 Upset Sulfa (Sulfonamide Allergy Intermediate RASH FROM Verified 05/29/22 20:00 Antibiotics) HEAD TO TOE adhesive Allergy Mild LOCAL SKIN Verified 05/29/22 20:00 IRRITATION celecoxib [From Celebrex] Allergy Mild Hypertensio Verified 05/29/22 20:00 n latex Allergy Mild RASH Verified 05/29/22 20:00 oxycodone Allergy Mild ITCHING Verified 05/29/22 20:00 shellfish derived Allergy Mild Cough Verified 05/29/22 20:00 ciprofloxacin AdvReac Intermediate SEVERE Verified 05/29/22 20:00 NAUSEA AND VOMITING nitrofurantoin AdvReac Intermediate SEVERE Verified 05/29/22 20:00 NAUSEA AND VOMITING lactose AdvReac Unknown GI SYMPTOMS Verified 05/29/22 20:00 Consultations 05/29/22 20:05 ED Decision to Admit Stat Ordered Studies 05/29/22 20:01 CT abd pelvis wo con Urgent 05/29/22 21:56 CT head/brain wo con Urgent Hospital Course (1) COVID: (2) Weakness: Plan Patient is a 87-year-old female with PMhx of CAD, HTN, HLD, diastolic CHF, asthma, chronic back pain, history of right sided breast cancer status post lumpectomy, XRT, CKD stage III, osteoporosis, ARPIT, essential tremor, gout who presented with cough and diarrhea. She was recently admitted from 05/23-05/24with COVID-19 infection. She did not feel well after getting discharged and return to the ED for evaluation. Chest x-ray was done which did not show any pneumonia. GI PCR panel and C. difficile were negative. Patient was treated with supportive care. Patient's cough and diarrhea improved gradually over the course of the treatment. She was started on loperamide for the diarrhea. She was discharged home with instruction to follow-up with the PCP. No other medication changes were made at discharge. Total Time Total Time Spent Total Time Spent (In Minutes): 35 Total Time Includes: Examination of the Patient, Discharge Planning, Medication Reconciliation, Communication With Other Providers and Other Discharge Plan Discharge Items Patient Disposition: Home - Self-Care Reason For Visit: HTB-N URGENCY, COMP UTI, COVID Discharge Diagnosis: COVID-19 infection Viral gastroenteritis Activity: Resume your previous activity Non-emergency contact: Primary Care Provider Call non-emergency contact if: you have any medication questions and your symptoms worsen Follow-up/Referrals: Jesika Brown MD [Primary Care Provider] - Diet: Regular Addtl Attending Provider Instructions: You were admitted to the hospital with COVID-19 infection. Your chest x-ray did not show any signs of pneumonia. You will not need any additional antibiotics. For the diarrhea, please keep yourself hydrated and drink plenty of fluids. You are also prescribed loperamide which is antidiarrheal medication. You can take it as needed up to 3 times a day if you have diarrhea. Please follow-up with your primary care doctor in 1 to 2 weeks. Pending Studies at Discharge: No Stand-Alone Forms: [facility] [employer], Smoking Cessation Medications and DC Order Prescriptions: New loperamide 2 mg Capsule 2 mg PO TID PRN (Reason: loose stool) Qty: 14 0RF Continued atorvastatin 20 mg Tablet 20 mg PO HS Qty: 0 pantoprazole 40 mg Tablet,Delayed Release (Dr/Ec) 40 mg PO QAM Qty: 0 montelukast 10 mg Tablet 10 mg PO HS Qty: 0 gabapentin 100 mg Capsule See Rx Instructions .ROUTE .COMPLEX Qty: 0 Rx Instructions: 100 mg orally; TAKES 100 MG QAM, THEN 200 MG HS. metoprolol succinate 50 mg Tablet Extended Release 24 Hr 50 mg PO QAM Qty: 0 telmisartan 80 mg Tablet 80 mg PO QAM Qty: 0 albuterol sulfate [ProAir HFA] 90 mcg/actuation Hfa Aerosol Inhaler 2 puff Inhalation Q4 PRN (Reason: Shortness Of Breath) Qty: 0 fluticasone propionate 50 mcg/actuation [place],Suspension 2 spray INTRANASAL QAM Qty: 0 furosemide 20 mg Tablet 20 mg PO 3XWK PRN (Reason: swelling) Qty: 0 Rx Instructions: Take on MWF and then prn for weight gain polyethylene glycol 3350 [Miralax] 17 gram/dose Powder 1 dose PO QAM allopurinol 100 mg Tablet 50 mg PO QAM aspirin 81 mg Tablet,Delayed Release (Dr/Ec) 81 mg PO QAM Coricidin HBP Cough and Cold 4-30 mg Tablet 1 tab PO Q4H PRN (Reason: Congestion) Proctofoam HC 1-1 % Foam 1 applic PA DAILY PRN (Reason: Hemorrhoids) docusate sodium 100 mg Capsule 100 mg PO BID fluoride (sodium) [Sodium Fluoride 5000 Dry Mouth] 1.1 % Paste 1 applic DENTAL DAILY wheat dextrin 3 gram/3.5 gram Powder 3 g PO DAILY PRN (Reason: Constipation) Rx Instructions: mix into at least 4 oz water or juice before administering levocetirizine [Xyzal] 5 mg Tablet 5 mg PO DAILY PRN (Reason: Congestion) Centrum Silver 400-250 mcg Tablet,Chewable 1 tab PO DAILY cranberry extract-vitamin C [Azo Cranberry Plus Vit C] 250-60 mg Capsule 1 cap PO DAILY Coricidin Hbp Nighttime Cold 1 dose PO DIRECTED PRN (Reason: Cold Symptoms) levothyroxine 88 mcg tablet 88 mcg PO DAILYBB famotidine 20 mg tablet 20 mg PO DAILY tizanidine 2 mg tablet 2 mg PO Q8H PRN (Reason: Muscle Spasm) Discharge Orders: Discharge Order (Routine); Ordered 06/01/22 Ordered By: Reddy Lora Admission Data Admit Date/Time: 05/30/22 12:12 Attending Provider: Reddy Lora Admit Provider: Montrell Goel Primary Care Provider: Jesika Brown Other Providers: Montrell Goel Other Interventions: Discharge Summary Assessment (RN) Last Done: 06/01/22 12:48
== END 2022-06-01 14:03 | disposition home or self-care (01) | DRG 178 ==
LOC: 2S 17:45 → ED 17:45 → 2S 23:34 → SUATTDRO 05-30 12:12
DX: Z88.5 Allergy status to narcotic agent; Z79.82 Long term (current) use of aspirin; J45.909 Unspecified asthma, uncomplicated; Z91.040 Latex allergy status; Z88.2 Allergy status to sulfonamides; I50.32 Chronic diastolic (congestive) heart failure; Z79.890 Hormone replacement therapy; I44.7 Left bundle-branch block, unspecified; Z79.810 Long term (current) use of selective estrogen receptor modulators (SERMs); Z91.013 Allergy to seafood; A08.4 Viral intestinal infection, unspecified; Z88.6 Allergy status to analgesic agent; Z85.3 Personal history of malignant neoplasm of breast; Z91.048 Other nonmedicinal substance allergy status; J20.9 Acute bronchitis, unspecified; Z88.8 Allergy status to other drugs, medicaments and biological substances; R19.7 Diarrhea, unspecified; E78.5 Hyperlipidemia, unspecified; E03.9 Hypothyroidism, unspecified; U07.1 COVID-19; I25.10 Atherosclerotic heart disease of native coronary artery without angina pectoris; Z91.011 Allergy to milk products; Z92.3 Personal history of irradiation; Z88.1 Allergy status to other antibiotic agents; Z79.899 Other long term (current) drug therapy; I16.0 Hypertensive urgency; I11.0 Hypertensive heart disease with heart failure